=== PATIENT | male | born 1990 | race Caucasian/White ===

== ENCOUNTER 2019-08-02 13:57 | Emergency (ER) | payer BC, MEDICAID, SELFPAY ==
[2019-08-02 14:01] VITALS: BP 156/85; PULSE 114; RESP 16; TEMP 37.1; O2SAT 97
--- NOTE | 2019-08-02 14:11 | ED.GENADUL_ITS ---
Discharge Plan Disposition Patient Disposition: HOME Condition: Stable Discharge Details Chief Complaint: Orthopedic Clinical Impression: Lateral subluxation of right patella Primary Care Provider: Shant Bradford ED Provider: Elvira De La Rosa Home Meds and New Rx's Prescriptions: New tramadol 50 mg tablet 50 mg PO TID PRN (Reason: pain) 3 Days Qty: 7 RF: 0 Continued triamcinolone acetonide 55 mcg/actuation aerosol WILLY DAILY PRNRF: 0 fluticasone propionate [Flonase Allergy Relief] 50 mcg/actuation spray,suspension 1 spray WILLY DAILY PRN (Reason: allergy symptoms) RF: 0 sertraline 50 mg tablet 50 mg PO DAILY Qty: 90 RF: 3 cetirizine [Zyrtec] 10 mg tablet 10 mg PO DAILY RF: 0 omeprazole 20 mg tablet,delayed release (DR/EC) 20 mg PO DAILY RF: 0 calcium carbonate [Tums] 200 mg calcium (500 mg) Tablet,Chewable 1 DAILY RF: 0 Discharge Instructions Instructions: Knee Pain (ED), Patellar Dislocation (ED) Additional Instructions: Dr. dang the orthopedic doctor automobile relocation engineer would like to see you in the office tomorrow morning at 8 AM the office is located at [address] [place] [address]. Please take Tylenol or Ibuprofen with food every 4-6 hours as needed for pain and swelling. Use Calos wrap and crutches as needed, rest ice compression elevation. Take medications as directed. Stand Alone Forms: Work Release Referrals: Jose Gongora MD [ [facility] STAFF PHYSICIAN] - Medical Decision Making 29-year-old male presents from [place] [facility] with right knee swelling after a fall on Wednesday evening. He reports increased pain and unable to sleep has been using crutches at home since fall. He had x-rays completed at [facility] was told there is no fracture but possibly a laterally dislocated patella he does have significant swelling noted to his right knee. Distal pedal pulses are intact extremity is pink warm and dry. He has increased pain and stiffness with full extension. He is requesting to have the fluid drained off his knee will contact Ortho. Patient received Toradol IM at urgent care prior to arrival. He states that that took his pain from a 7 down to a 3 out of 10. 1438: Previous X-rays uploaded into PACS, Previous read shows effusion, no acute fracture, laterally dislocated patella, Ortho automobile relocation engineer paged for consult. 1508: Attempted manual reduction of patella at bedside, unsuccessful. 1515: Spoke with Dr. Gongora who requests XR R knee AP, Lat, and merchant view. Orders in place. Spoke with Dr. Gongora who has viewed X-rays and they show a patellar subluxation with large effusion. Patient to follow up with him at 8am in clinic. Patient sent home with tramadol for pain instructed on rest ice compression elevation, verbalized understanding. HPI General Mode of arrival: ambulatory . Date/Time Provider Initiated Documentation: 08/02/19 14:00 . Limitations to Documentation: no limitations . Information obtained by: patient . HPI Narrative: 29-year-old male presents from [facility] with right knee swelling after a fall on Wednesday evening. He reports increased pain and unable to sleep has been using crutches at home since fall. He had x-rays completed at [facility] was told there is no fracture but possibly a laterally dislocated patella he does have si gnificant swelling noted to his right knee. Distal pedal pulses are intact extremity is pink warm and dry. He has increased pain and stiffness with full extension. He is requesting to have the fluid drained off his knee will contact Ortho. Patient received Toradol IM at urgent care prior to arrival. He states that that took his pain from a 7 down to a 3 out of 10. Related Data Home Medications Medication Instructions Recorded Confirmed cetirizine 10 mg tablet 10 mg PO DAILY 06/21/19 08/02/19 omeprazole 20 mg tablet,delayed 20 mg PO DAILY 06/21/19 08/02/19 release fluticasone propionate 50 1 spray WILLY DAILY PRN 07/04/19 08/02/19 mcg/actuation nasal spray,suspension sertraline 50 mg tablet 50 mg PO DAILY #90 tab 07/04/19 08/02/19 triamcinolone acetonide 55 mcg WILLY DAILY PRN 07/04/19 07/04/19 mcg/actuation nasal spray,aerosol calcium carbonate [Tums] 1 DAILY 08/02/19 tramadol 50 mg PO TID PRN 3 Days #7 tab 08/02/19 Previous Rx's Medication Instructions Recorded sertraline 50 mg tablet 50 mg PO DAILY #90 tab 07/04/19 tramadol 50 mg PO TID PRN 3 Days #7 tab 08/02/19 Allergies Allergy/AdvReac Type Severity Reaction Status Date / Time codeine AdvReac Nausea Verified 08/02/19 14:05 General Stated Complaint: Orthopedic WILLIAM: 4 Review of Systems Narrative: Constitutional: Negative for weight loss, alert and oriented, well groomed, normal body habitus, appears comfortable. HEENT: Denies trauma, headaches, blurry vision, nasal discharge, sore throat, trouble swallowing. Chest: Denies chest pain, palpitations, irregular rhythm, hypertension. Respiratory: Denies Shortness of breath, cough, hemoptysis. GI: Denies abdominal pain, nausea, vomiting, diarrhea, constipation. Musculoskeletal: Complains of right knee pain and swelling. : Denies dysuria, hematuria, flank pain, rectal bleeding. Neuro: Denies dizziness, blurry vision, weakness, syncope, headache or facial numbness. Hematologic: Denies easy bruising, intolerance to heat or cold, hair loss. [facility] Medical History Anxiety (Chronic) ETOH abuse (Chronic) Major depressive disorder, recurrent, moderate (Acute) Family History Mother Substance abuse Hypertension Alcohol abuse Father Substance abuse Hypertension Alcohol abuse Sister Depression Anxiety Maternal Grandfather Pancreatic cancer Maternal Grandfather Pancreatic cancer Other Skin cancer Social History Smoking/Tobacco Use Status: Former Tobacco Use Quit Date: 05/10/15 Tobacco: How many years used: 1 Alcohol Intake: current Alcohol Intake frequency: 0-2 drinks per day Alcohol type: beer Drug use: Daily Substance use type: marijuana Details: Vapes-Marijuana Adopted: No Caregiver/Support person: No Foster care: No Household members: none Housing: apartment Do you need help understanding health information?: Rarely 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 Appears stated age. Normal body habitus. Head: Normocephalic, no trauma. Eyes: Pupils PERRLA, Red reflex noted, EOM's intact. Eyelids symmetrical withour lesions, discharge, or swelling. ENT: Bilateral TM's WNL, External ear normal to inspection, no mastoid TTP, swelling, or erythema, Nasal turbinates WNL, no nasal discharge. Normal dentition, Posterior pharynx WNL, no exudate. Chest: RRR, Normal S1, S2, distal pulses intact. Resp: Lungs clear to auscultation bilaterally, no wheezes, rales, or rhonchi. Musculoskeletal: Normal gait, 5/5 strength to all four extremities. Right anterior knee swollen non-erythemic. No crepitus. Skin: No suspicious rashes or lesions. Capillary refill less than 2 sec. Neurologic: Cranial nerves II-XII intact. Alert and oriented x 3. DTR's intact. Hematologic/Lymphatic: No ecchymosis, no lymphadenopathy. Course Vital Signs Vital signs: Vital Signs Temperature 37.1 C 08/02/19 14:01 Pulse 114 H 08/02/19 14:01 Respiratory Rate 16 08/02/19 14:01 Blood Pressure 156/85 H 08/02/19 14:01 Pulse Oximetry 97 08/02/19 14:01 Temperature 37.1 C 08/02/19 14:01 Temperature Source Skin 08/02/19 14:01 Pulse 114 H 08/02/19 14:01 Respiratory Rate 16 08/02/19 14:01 Respiratory Effort Non-Labored 08/02/19 14:01 Blood Pressure 156/85 H 08/02/19 14:01 Blood Pressure Position Sitting 08/02/19 14:01 Pulse Oximetry 97 08/02/19 14:01 Oxygen Delivery Method Room Air 08/02/19 14:01 Oxygen Flow Rate 0 08/02/19 14:01 Pain Level 4 08/02/19 14:08
--- NOTE | 2019-08-02 15:00 | DI.RAD_ITS ---
EXAM: XR KNEE RT 3V AP,LAT,KALI CLINICAL HISTORY: patellar dislocation. TECHNIQUE: 2D digital imaging was performed. COMPARISON: No previous. FINDINGS: BONES: No acute fracture is present. No bony destructive lesion is seen. Findings of a prior ACL repa ir are noted. JOINTS: Degenerative changes are seen in the knee characterized by periarticular spurring and subchon dral sclerosis. There is mild narrowing of the medial femoral tibial joint space. There is a large joint effusion. There is lateral subluxation of the patella. SOFT TISSUE: There is soft tissue swelling. IMPRESSION: 1. Lateral subluxation of the patella. 2. Degenerative changes of the right knee. 3. Large joint effusion. DATA REPOSITORY: RADIATION DOSE DELIVERED:
[2019-08-02] MEDS: oxyCODONE 5 mg/Acetaminophen 325 mg TAB 1 TAB PO (15:13)
== END 2019-08-02 16:40 | disposition home or self-care (01) ==
LOC: ER 16:38
PROVIDERS: Emergency Provider Registered Nurse Emergency; PCP Family Medicine
DX: S83.011A Lateral subluxation of right patella, initial encounter (principal); M25.461 Effusion, right knee; W19.XXXA Unspecified fall, initial encounter
CPT/HCPCS: 73562; 99283

== ENCOUNTER 2019-09-11 01:58 | Outpatient (CLI) | payer BC, SELFPAY ==
--- NOTE | 2019-09-11 06:30 | DI.MRI_ITS ---
EXAM: MR LOWER JOINT RT WO CLINICAL HISTORY: recurrent ACL rupture, internal derangement,RT KNEE HEMIARTHROSIS, PAIN. TECHNIQUE: Multiplanar multisequence MRI was performed. COMPARISON: Knee RT from 08/02/2019 XR KNEE RT 3V AP,LAT,KALI from 08/02/2019 FINDINGS: There is a moderate to large joint effusion. The patient is status post ACL repair. The ACL graft i s not seen, consistent with complete tear. Posterior cruciate ligament, medial and lateral collatera l ligaments and extensor mechanism appear intact. There are degenerative changes of both medial femoral tibial joints with cartilage thinning extending down to and involving underlying bone. There is spurring from the femoral condyles and tibial plate aus. Both menisci show degenerative changes, medial greater than lateral. The posterior horn of the later al meniscus is not seen in its normal location. There is an abnormal triangular density seen adjacen t to the posterior cruciate ligament which is suspicious for a displaced meniscal fragment versus buc ket-handle type tear. There is cartilage thinning and small defect in the cartilage of the medial patellar facet. IMPRESSION: Complete tear of the ACL graft. Severe degenerative changes of the femoral tibial joints and medial meniscus. Degenerative changes of the lateral meniscus with superimposed tear of the posterior horn with medial ly displaced fragment. DATA REPOSITORY:
== END 2019-09-11 02:18 ==
PROVIDERS: PCP Family Medicine; Visit Provider Student in an Organized Health Care Education/Training Program
DX: M25.561 Pain in right knee (principal); M23.8X1 Other internal derangements of right knee; M25.461 Effusion, right knee; M17.11 Unilateral primary osteoarthritis, right knee; S83.281A Other tear of lateral meniscus, current injury, right knee, initial encounter; T84.490A Other mechanical complication of muscle and tendon graft, initial encounter
CPT/HCPCS: 73721

== ENCOUNTER 2019-10-09 10:25 | Outpatient (CLI) | payer BC, SELFPAY ==
[2019-10-10 14:57] LABS: COVID-19 RT-PCR Result NEGATIVE (Negative)
== END 2019-10-09 10:45 ==
PROVIDERS: PCP Family Medicine; Visit Provider Family Medicine
DX: R43.2 Parageusia (principal); Z11.59 Encounter for screening for other viral diseases
CPT/HCPCS: U0003

== ENCOUNTER 2020-06-17 09:23 | Emergency (ER) | payer BC, SELFPAY ==
[2020-06-17 09:29] VITALS: BP 151/82; PULSE 107; RESP 18; TEMP 36.5; O2SAT 98
--- NOTE | 2020-06-17 10:46 | ED.GENADUL_ITS ---
Discharge Plan Disposition Patient Disposition: HOME Condition: Stable Discharge Details Clinical Impression: Bruising of penis Primary Care Provider: Shant Bradford ED Provider: Zaira Keller Home Meds and New Rx's Prescriptions: Continued triamcinolone acetonide 55 mcg/actuation aerosol WILLY DAILY PRNRF: 0 fluticasone propionate [Flonase Allergy Relief] 50 mcg/actuation spray,suspension 1 spray WILLY DAILY PRN (Reason: allergy symptoms) RF: 0 sertraline 50 mg tablet 50 mg PO DAILY Qty: 90 RF: 3 ibuprofen 800 mg tablet 800 mg PO BID PRN (Reason: Knee pain) Qty: 60 RF: 0 cetirizine [Zyrtec] 10 mg tablet 10 mg PO DAILY RF: 0 (DME) Right knee ACL brace See Rx Instructions .ROUTE .MEDSUPPLY Qty: 1 RF: 0 calcium carbonate [Tums] 200 mg calcium (500 mg) Tablet,Chewable 1 DAILY RF: 0 omeprazole 40 mg capsule,delayed release(DR/EC) 40 mg PO DAILY PRNRF: 0 Discharge Instructions Additional Instructions: Please return immediately to the emergency department if you develop any new or worsening symptoms including but not limited to penis pain, testicular pain, difficulty or pain with urinating, blood in your urine, difficulty or inability achieving erection, if your condition does not improve as expected, or if you become otherwise concerned. It is extremely important that you call soon as possible to make an appointment to be seen in follow-up for this visit by your primary care doctor. Please call Dr. Sherman of urology on 06/20/2020 for follow- up as was discussed. Referrals: Aj Sherman MD [ [facility] STAFF PHYSICIAN] - Shant Bradford DO [Primary Care Provider] - Discharge Data Discharge Date/Time-TO BE ENTERED AT DEPARTURE: 06/17/20 12:00 Medical Decision Making David Morrow is a 30-year-old man who presented to the emergency department with painless bruising of his penis that occurred during intercourse yesterday with unclear inciting event. On exam patient is well and nontoxic-appearing, appears comfortable and in no distress. No abdominal tenderness palpation. There is ecchymosis of the penile shaft, suprapubic area adjacent to the penis, and superior scrotum adjacent to the penis without testicular tenderness or scrotal edema. History is not entirely consistent with penile fracture, however concern for fracture given exam. Exam/history is not consistent with testicular torsion, bladder rupture, acute emergent intra-abdominal process, acute emergent infectious process. Plan for urology consult, UA. Urology at bedside with patient. Urology requesting UA, will review when resulted. UA negative for blood. Dr. Sherman at bedside with Pt. He requests outpt f/u with him, d/c to home without further emergent intervention. Lengthy discussion with Patient regarding return to emergency department precautions, home care, and importance of outpatient follow-up. Patient discharged to home with clear plan for outpatient follow-up. Disposition decision was made weighing the risks and benefits of hospitalization versus outpatient treatment, the risk for further decompensation, and the patient's wishes. Medical Records Medical records reviewed: Yes I reviewed the patient's medical records. Lab Data Lab results reviewed: Yes I reviewed the patient's lab results. Labs: Laboratory Tests Range/Units 06/17/20 11:30 Urine Color (Yellow) Yellow Urine Clarity (Clear) Clear Urine pH (5-8) 6.0 Ur Specific [place] (1.005-1.025) 1.025 Urine Protein (Negative) mg/dL Negative Urine Ketones (Negative) mg/dL Negative Urine Blood (Negative) Negative Urine Nitrite (Negative) Negative Urine Bilirubin (Negative) Negative Urine Urobilinogen (Up TO 0.2) EU/dL 0.2 Ur Leukocyte Esterase (Negative) Negative Urine Glucose (Negative) mg/dL Negative Mood okay is more pronounced HPI General Mode of arrival: ambulatory . Date/Time Provider Initiated Documentation: 06/17/20 09:52 . Limitations to Documentation: no limitations . Information obtained by: patient, RN notes reviewed and old records reviewed . HPI Narrative: David Morrow is a 30-year-old man with history of depression, heavy alcohol use presenting to the emergency department with penile bruising. Patient reports that he was well in his previous state of health yesterday. He was having sexual intercourse at approximately 5:30 PM yesterday when his female partner asked him if she had hurt him. Patient said that he has felt no trauma or other abnormality, did not hear or feel a popping sound, but subsequently examined his penis and found it to be bruised. Patient reported that he tried having intercourse at that time due to concern of a bruising, however later last night did have subsequent erections. Patient reports that he has been urinating normally with out blood in urine or pain. Patient reports that he continues to have no pain today, no difficulty with urination, no blood in his urine. Patient reports that he presented to the emergency department given extensiveness of bruising of his penis and also of his scrotum. He denies testicular pain, penile pain, any other pain, fever, vomiting, diarrhea, cough, shortness of breath, numbness, weakness. Patient reports no known abnormalities to his genitalia prior to intercourse yesterday. Related Data Home Medications Medication Instructions Recorded Confirmed cetirizine 10 mg tablet 10 mg PO DAILY 06/21/19 06/17/20 fluticasone propionate 50 1 spray WILLY DAILY PRN 07/04/19 06/17/20 mcg/actuation nasal spray,suspension sertraline 50 mg tablet 50 mg PO DAILY #90 tab 07/04/19 06/17/20 triamcinolone acetonide 55 mcg WILLY DAILY PRN 07/04/19 09/26/19 mcg/actuation nasal spray,aerosol calcium carbonate [Tums] 1 DAILY 08/02/19 09/26/19 ibuprofen 800 mg tablet 800 mg PO BID PRN #60 tab 08/03/19 06/17/20 Right knee ACL brace #1 each 10/13/19 omeprazole 40 mg PO DAILY PRN 06/17/20 06/17/20 Previous Rx's Medication Instructions Recorded sertraline 50 mg tablet 50 mg PO DAILY #90 tab 07/04/19 ibuprofen 800 mg tablet 800 mg PO BID PRN #60 tab 08/03/19 Right knee ACL brace #1 each 10/13/19 Allergies Allergy/AdvReac Type Severity Reaction Status Date / Time hazelnut Allergy Itching Unverified 06/17/20 09:36 shellfish derived Allergy Anaphylaxis Unverified 06/17/20 09:36 codeine AdvReac Nausea Verified 06/17/20 09:36 General Stated Complaint: Male Reproductive Problem WILLIAM: 3 Review of Systems Narrative: Constitutional: denies fevers Eyes: denies eye pain ENT: denies ear pain, dental pain, sore throat Cardiovascular: denies chest pain Respiratory: denies SOB, cough GI: denies abdominal pain, vomiting, diarrhea : denies flank pain, penile pain, dysuria, hematuria, testicular pain, scrotal swelling, reports penile bruising MSK: denies back pain, neck pain, arthralgias, myalgias Skin: denies rash Neuro: denies headaches, numbness, weakness [facility] Medical History Anxiety ETOH abuse Major depressive disorder, recurrent, moderate Family History Mother Substance abuse Hypertension Alcohol abuse Father Substance abuse Hypertension Alcohol abuse Sister Depression Anxiety Maternal Grandfather Pancreatic cancer Maternal Grandfather Pancreatic cancer Other Skin cancer Social History Smoking/Tobacco Use Status: Former Tobacco Use Quit Date: 05/10/15 Tobacco: How many years used: 1 Smoking risk assessment performed?: Yes Alcohol Intake: current Alcohol Intake frequency: 0-2 drinks per day Alcohol type: beer Drug use: Daily Substance use type: marijuana Details: Vapes-Marijuana Adopted: No Caregiver/Support person: No Foster care: No Household members: none Housing: apartment Do you need help understanding health information?: Rarely 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, [employer] Pets and animals: Yes Pets and animals: dog(s) Sexually active: Yes Do you think of yourself as: straight/heterosexual Current gender identity: male What type of physical activity do you participate in: none Exam Narrative Exam Narrative: Constitutional: well and [id number], pleasant, conversing normally HENT: head atraumatic/normocephalic/normal inspection, mucous membranes moist Eyes: conjunctiva normal, sclera normal, pupils 3mm b/l Neck: no stridor, normal ROM, trachea midline Resp: normal work of breathing, speaking in full sentences Cardio: normal rate, normal rhythm GI: abdomen soft, non-tender, non-distended, faint ecchymosis suprapubic area just superior to the penis : Circumferential ecchymosis of the entire penile shaft extending into the superior scrotum, no blood at the meatus, no appreciable edema of the penis, no testicular tenderness or edema Skin: warm, dry, normal color, no rash Neuro: alert, not altered, grossly non-focal, normal tone Ext: no edema Psych: normal mood, normal affect, normal behavior Course Vital Signs Vital signs: Vital Signs Temperature 36.5 C 06/17/20 09:29 Pulse 107 H 06/17/20 09:29 Respiratory Rate 18 06/17/20 09:29 Blood Pressure 151/82 H 06/17/20 09:29 Pulse Oximetry 98 06/17/20 09:29 Temperature 36.5 C 06/17/20 09:29 Temperature Source Skin 06/17/20 09:29 Pulse 107 H 06/17/20 09:29 Respiratory Rate 18 06/17/20 09:29 Respiratory Effort Non-Labored 06/17/20 09:38 Blood Pressure 151/82 H 06/17/20 09:29 Blood Pressure Position Sitting 06/17/20 09:29 Pulse Oximetry 98 06/17/20 09:29 Oxygen Delivery Method Room Air 06/17/20 09:29 Oxygen Flow Rate 0 06/17/20 09:29 Pain Level 0 06/17/20 09:29
[2020-06-17 11:46] LABS: Bilirubin Negative (Negative); Blood Negative (Negative); Clarity Clear (Clear); Glucose Negative (Negative); Ketones Negative (Negative); Leukocyte Esterase Negative (Negative); Nitrite Negative (Negative); Specific Gravity 1.025 (1.005-1.025); Urobilinogen 0.2 EU/dL (Up TO 0.2)
[2020-06-17 12:01] VITALS: BP 145/89; PULSE 89; RESP 16; O2SAT 96
--- NOTE | 2020-06-17 12:29 | UCONE_ITS ---
Date of service: 06/17/20 Time of Service: 12:29 Assessment and Plan Assessment and plan (1) Bruising of penis: Status: Acute Assessment and plan: With a normal urinalysis, it would be highly unlikely that he has any type of injury to the corpus spongiosum. I do not think a retrograde urethrogram is indicated. The differential diagnosis would be either a ruptured subcutaneous blood vessel or a ruptured tunica albuginea. Clinically, I favor the ruptured blood vessel as the patient did not hear a popping noise and has been able to obtain normal erections after the onset of the edema and ecchymosis. We discussed 3 different approaches. One would be to do a surgical exploration and repair any injury to the tunica albuginea if it is identified. The second approach would be an ultrasound study looking for injuries to the corpus cavernosum. We do not have access to this specialized ultrasound probe, so we would need to refer him to a larger tertiary care center for such a study. The third approach would be to simply observe him with the expectation that if it is a subcutaneous vein rupture, the ecchymosis should reabsorb over time. He is most agreeable with the observation approach. I asked him to let me know if he is not able to obtain a normal erection as that change in his condition may indicate a tunica rupture. We will ask the patient to give us a call in about a week with a progress report. We can then decide if we need to bring him into the office for recheck or not. History of Present Illness History of Present Illness Chief Complaint: Penile ecchymosis Narrative: This is a 30-year-old gentleman who presented to the emergency room today with penile ecchymosis. He tells me that he and his partner were intermittent yesterday. The patient did not recall any painful injury or hearing any popping noise. He did however notice penile edema and bruising. Over the next 12 to 18 hours, the edema and ecchymosis has extended toward the suprapubic and scrotal area. He still has no pain. He has been able to obtain erections since the onset of the ecchymosis. He is not on any type of anticoagulant. He has had no previous penile surgery. He has had no difficulty with voiding. His urinalysis done here in the emergency room is normal. Review of Systems Constitutional Constitutional: Denies chills and Denies fever(s) Cardiovascular Cardiovascular: Denies chest pain Respiratory Respiratory: Denies cough Gastrointestinal Gastrointestinal: Denies nausea and Denies vomiting Neurologic Neurologic: Denies convulsions and Denies paresthesias [facility] Medical History Anxiety ETOH abuse Major depressive disorder, recurrent, moderate Family History Mother Substance abuse Hypertension Alcohol abuse Father Substance abuse Hypertension Alcohol abuse Sister Depression Anxiety Maternal Grandfather Pancreatic cancer Maternal Grandfather Pancreatic cancer Other Skin cancer Social History Smoking/Tobacco Use Status: Former Tobacco Use Quit Date: 05/10/15 Tobacco: How many years used: 1 Smoking risk assessment performed?: Yes Alcohol Intake: current Alcohol Intake frequency: 0-2 drinks per day Alcohol type: beer Drug use: Daily Substance use type: marijuana Details: Vapes-Marijuana Adopted: No Caregiver/Support person: No Foster care: No Household members: none Housing: apartment Do you need help understanding health information?: Rarely current occupation: [employer], [employer] Pets and animals: Yes Pets and animals: dog(s) Sexually active: Yes Do you think of yourself as: straight/heterosexual Current gender identity: male What type of physical activity do you participate in: none Exam Const Other: He is in no current distress. He is cooperative. His vital signs are documented elsewhere He does not appear septic or toxic The glans is pink with no ecchymosis or edema. The urethral meatus appears normal. The penile shaft is ecchymotic but not tender on palpation. There is some tenderness in the suprapubic area just at the shaft of the penis. There is some mild ecchymosis in the scrotum with normal testes. He is awake and alert Results Last Vital Signs Temp 36.5 C 06/17/20 09:29 Pulse 89 06/17/20 12:01 Resp 16 06/17/20 12:01 BP 145/89 H 06/17/20 12:01 Pulse Ox 96 06/17/20 12:01 Labs Labs: Laboratory Results - last 24 hr 06/17/20 11:30 Urine Color Yellow Urine Clarity Clear Urine pH 6.0 Ur Specific [place] 1.025 Urine Protein Negative Urine Ketones Negative Urine Blood Negative Urine Nitrite Negative Urine Bilirubin Negative Urine Urobilinogen 0.2 Ur Leukocyte Esterase Negative Urine Glucose Negative
--- NOTE | 2020-06-17 13:59 | NUR.NOTE ---
REFERRAL FAXED TO [facility], SEEN IN ED 06/17/[address] VOSS AND LUISITO COLLAZO.Nursing Note:
== END 2020-06-17 12:00 | disposition home or self-care (01) ==
PROVIDERS: Emergency Provider Student in an Organized Health Care Education/Training Program; PCP Family Medicine
DX: S30.21XA Contusion of penis, initial encounter (principal); X58.XXXA Exposure to other specified factors, initial encounter
CPT/HCPCS: 99252; 99282; 99283; 81003

== ENCOUNTER 2020-10-17 01:25 | Outpatient (CLI) | payer BC, SELFPAY ==
--- NOTE | 2020-10-17 | DI.MRI_ITS ---
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 TECHNIQUE: Multiplanar multisequence MRI was performed. COMPARISON: None available FINDINGS: There is evidence of previous ACL repair. The ACL graft is not visible, consistent with complete tea r. There is abnormal anterior and lateral subluxation of the tibia with respect to the distal femur. The posterior cruciate ligament, medial and lateral collateral ligaments appear intact. The extens or mechanism appears intact. There is a moderate-sized joint effusion. There is spurring from the f emoral condyles and tibial plateaus. There is severe thinning of the cartilage overlying the medial tibial plateau, extending down to bone. There is marrow edema and some subchondral cyst formation. There is also significant irregularity over the medial femoral condyle, with significant thinning. N o marrow edema is seen. There is also thinning of the cartilage of the lateral femoral condyle with some adjacent edema. The patellar cartilage is normal in thickness. The lateral meniscus shows some degenerative change but no focal signal abnormality. The medial meniscus is quite diminutive, consi stent with postsurgical changes. IMPRESSION: Prior ACL repair. The graft is not visualized, consistent with complete tear. Presumed postsurgical changes of the medial meniscus. Degenerative changes with significant cartilage thinning involving underlying bone, greatest of the medial femoral tibial joint. DATA REPOSITORY:
== END 2020-10-17 01:45 ==
PROVIDERS: PCP Family Medicine; Visit Provider Orthopaedic Surgery
DX: M25.362 Other instability, left knee (principal); M23.92 Unspecified internal derangement of left knee; S83.512A Sprain of anterior cruciate ligament of left knee, initial encounter; M25.462 Effusion, left knee
CPT/HCPCS: 73721

== ENCOUNTER 2020-11-05 13:31 | Outpatient (REF) | payer BC, SELFPAY ==
[2020-11-07 15:51] LABS: Chlamydia Result Negative (Negative); GC Result Negative (Negative)
== END 2020-11-05 13:32 | disposition home or self-care (01) ==
LOC: LBN 13:31
PROVIDERS: PCP Family Medicine; Visit Provider Family Medicine
DX: Z11.3 Encounter for screening for infections with a predominantly sexual mode of transmission (principal)
CPT/HCPCS: 87491; 87591

== ENCOUNTER 2023-05-26 02:37 | Outpatient (CLI) | payer BC, SELFPAY ==
[2023-05-26 09:14] LABS: ALT 29 U/L (16-63); AST 10 U/L (15-37); Albumin 4.1 g/dL (3.4-5.0); Alkaline Phosphatase 66 U/L (46-116); Anion Gap 5.8 mmol/L (3-11); BUN 19 mg/dL (7-18); Bilirubin, Total 0.4 mg/dL (0.2-1.0); CO2 31.2 mmol/L (21.0-32.0); CREATININE 0.9 mg/dL (0.70-1.30); Calcium 9.3 mg/dL (8.5-10.1); Calculated LDL 147 mg/dL (<100); Chloride 101 mmol/L (98-107); Cholesterol 242 mg/dL (<200); Estimated GFR 115.65 (mL/min/1.73m2); Glucose 130 mg/dL (74-106); HDL Cholesterol 41 mg/dL (40-60); Potassium 4.1 mmol/L (3.5-5.1); Sodium 138 mmol/L (136-145); Total Protein 8.2 g/dL (6.4-8.2); Triglyceride 273 mg/dL (<150)
[2023-05-26 19:31] LABS: Hepatitis C Ab w Rflx HCV PCR Negative (Negative)
[2023-05-26 21:05] LABS: HIV-1/2 Ag & Ab Screen Negative (Negative)
== END 2023-05-26 02:38 | disposition home or self-care (01) ==
PROVIDERS: PCP Family Medicine; Referring Provider Family Medicine; Visit Provider Family Medicine
DX: F10.10 Alcohol abuse, uncomplicated (principal); Z13.6 Encounter for screening for cardiovascular disorders; Z11.3 Encounter for screening for infections with a predominantly sexual mode of transmission; Z00.00 Encounter for general adult medical examination without abnormal findings
CPT/HCPCS: 36415; 80053; 80061; 86803; 87389

== ENCOUNTER 2023-11-23 18:35 | Outpatient (REF) | payer BC, SELFPAY ==
--- OUTSIDE RECORDS SUMMARY | 2023-11-23 18:39 | XMS_ITS | Encounter Summary ---
Author Organization [facility] Address [phone] [facility] [place] [address] Care Team Providers Care Perioperative Tech Name Role Phone Shant Bradford DO Primary Care Provider + Encounter Details Date Type Department Care Team ([facility] Contact Info) Description 05/08/2022 Telephone [facility] [address] [place] [address] Zackary Garcia MD [address] [place] [address] [email or web address] Social History Tobacco Use Types Packs/Day Years Used Date Smoking Tobacco: Never Smokeless Tobacco: Never Alcohol Use Standard Drinks/Week Comments Not Currently 1 (1 standard drink = 0.6 oz pur e alcohol) 4-6 a month Sex and Gender Information Value Date Recorded Sex Assigned at Male 07/16/2020 11:01 AM EST Gender Identity Male 07/16/2020 11:01 AM EST Sexual Orientation Straight 07/16/2020 11 :01 AM EST documented as of this encounter Progress Notes * Zackary Garcia MD - 05/08/2022 8:29 PM EST Images from the original note were not included. David Odalys // [id number] Called by patient s/p TKA on 05/05/[address] Ragsdale. Patient reports that when he worked with PT today and they took down his dressing, they noticed that the knee was swollen but not erythematous or warm. There was a small superficial blister that was to the right of the incision. The patient is notably not having any pain and is able to range the knee with minimal pain. No drainage/bleeding. The patient wants to know if he needs to go the ED tonight, and he was advised that it is not necessary to go to ED tonight for this. Advised that as I cannot see them in person I can't evaluate the fully or provide formal recommendations. Counseled to call back if patient develops fever/chills, nausea/emesis, malaise, erythema, drainage from the surgical wound, numbness/paresthesias or inability to ambulate. Patient expresses understanding of and agreement with plan. Zackary Garcia MD Orthopaedic Resident, PGY1 [facility] Orthopaedic Residency Program P: [phone] For further follow up regarding inpatients, please page [phone] at [facility], [phone] at [facility], or the resident/fellow rounding on the patient daily. documented in this encounter Plan of Treatment Not on file documented as of this encounter Visit Diagnoses Not on filedocumented in this encounter Care Teams Perioperative Tech Relationship Specialty Start Date End Date Shant Bradford DO [address] [place] [address] PCP - General 07/16/20 documented as of this encounter Additional Source Comments The information contained in this document represents components of the legal health record. It is not the complete legal health record.[facility]
--- OUTSIDE RECORDS SUMMARY | 2023-11-23 18:39 | XMS_ITS | Encounter Summary ---
Author Organization [facility] Address [phone] [place] [address] Care Team Providers Care General Lot Attendant Name Role Phone Shant Bradford DO Primary Care Provider + Reason for Visit * Consultation (Routine) - Authorized Specialty Diagnoses / Procedures Referred By Contact Referred To Contact Orthopedic Surgery / Orthopedics Diagnoses Left knee f/u with x-ray Procedures ESTABLISHED PATIENT Shant Bradford DO [address] [place] [address] [facility] Orthoped[facility] [address] [place] [address] Referral ID Status Reason Start Date Expiration Date V isits Requested Visits Authorized [id number] Authorized 03/31/2023 03/31/2024 99 99 Encounter Details Date Type Department Care Team (Latest Contact Info) Description 03/31/2023 3:00 PM EST Office Visit [facility] [place] [address] [place] [address] Adriana Ragsdale MD [address] [place] [id number] [email or web address] Status post total left knee replacement (Primary Dx); Primary osteoarthritis of right knee; Chronic pain of right knee Social History Tobacco Use Types Packs/Day Years Used Date Smoking Tobacco: Never Smokeless Tobacco: Never Alcohol Use Standard Drinks/Week Comments Not Currently 1 (1 standard drink = 0.6 oz pur e alcohol) 4-6 a month Education Answer Date Recorded Are you interested in more education? Not on roger e 09/04/2022 Are you concerned about learning? Not on file 09/04/2022 No 09/04/2022 No 09/04/2022 Digital Access Answer Date Recorded No 10/06/2022 No 10/06/2022 Reliable internet access at home? Not on file 10/06/2022 Device with a working camera? Not on file Sex and Gender Information Value Date Recorded Sex Assigned at Male 07/16/2020 11:01 AM EST Gender Identity Male 07/16/2020 11:01 AM EST Sexual Orientation Straight 07/16/2020 11 :01 AM EST documented as of this encounter Last Filed Vital Signs Vital Sign Reading Time Taken Comments Blood Pressure - - Pulse - - Temperature - - Respiratory Rate - - Oxygen Saturation - - Inhaled Oxygen Concentration - - Weight 90.7 kg (200 lb) 03/31/2023 2:56 PM EST Height 175 cm (5' 8.9) 03/31/2023 2:56 PM EST Body Mass Index 29.62 03/31/2023 2:56 PM EST documented in this encounter Progress Notes * Adriana Ragsdale MD - 03/31/2023 3:00 PM EST Images from the original note were not included. Adriana Ragsdale MD, ASHLEY Director of Research, Arthroplasty Services [facility] David Upsala ?DATE OF : @ DATE OF SERVICE: 03/31/23 Diagnosis: 1. Status post total left knee replacement 2. Primary osteoarthritis of right knee 3. Chronic pain of right knee Surgery: L TKR kwame with lateral release 05/05/22 HPI: This patient presents today for 1 year follow-up appointment. Patient is doing well with the left knee replacement - he has crepitus that is painless. He notices that he can't squat as deeply. He continues to do exercises. His right knee has been bothering him more. The patient has pain in hisright knee when doing short walks and going up hills - he has lateral right knee pain. He has no fever or chills. PHYSICAL EXAMINATION: Vitals: 03/31/23 1456 Weight: 90.7 kg (200 lb) Height: 175 cm (5' 8.9) Body mass index is 29.62 kg/m??. Patient is a male; alert and oriented, in no acute distress. Well developed, appropriate affect. left knee reveals: Nicely healed wound, no effusion, no drainage. well-healed otherwise ROM: 0-130 Stable to varus and valgus stress, and anterior and posterior stress. Moderate crepitus. Calf is supple and nontender. Neurovascularly intact. Grossly in tact to light touch. Examination of the right knee demonstrates: Skin is intact, warm and dry. Effusion: small Joint line tenderness: medial Crepitation: significant ROM: 0-130 Alignment: varus Ligaments: stable Quad strength: 5/5 No obvious peripheral edema noted. Distal neurovascular exam demonstrates normal perfusion, intact sensation to light touch and full strength. X-rays of the patient's left knee demonstrate appropriate component placement with some patellofemoral arthritis with a centrally tracking patella. The right knee previous demonstrated osteoarthritiswith patella subluxation. ?VISIT DIAG: Status post total left knee replacement [Z96.652] ? PLAN: The patient is doing well after a left total knee replacement and his range of motion is doing well. He may benefit from VMO exercises. He will continue to practice kneeling. He will return forhis right knee. He will follow- up at his 4 year follow-up with x-rays. Adriana Ragsdale MD/ASHLEY Orthopaedic attending This note was dictated using [employer] software. While it was briefly proofread prior to completion, some grammatical, spelling, and word choice errors due to dictation may still occur. Current view: Showing only relevant answers Proms Msk All Joints Selector New Question 03/31/2023 10:03 AM EST - Filed by Patient What is the reason for your visit? Please also select any joints/areas for which you are scheduled or have recently had surgery. Knee Proms Msk Knee Root New Question 03/31/2023 10:03 AM EST - Filed by Patient The following questions provide your doctor and care team with valuable information and allow them to take better care of you. Please note your answers may not be reviewed immediately. If you have anurgent medical question, please call your doctor's office. For emergencies, call 911. Your responses are confidential. By starting the questionnaire, you understand that your responses will become part of your medical record and may be visible in your [facility] portal. Get started Proms Promis Physical Function 10a Question 03/31/2023 10:03 AM EST - Filed by Patient Does your health now limit you in doing vigorous activities, such as running, lifting heavy objects, participating in strenuous sports? Somewhat Does your health now limit you in walking more than a mile? (1.6 km) Very little Does your health now limit you in climbing one flight of stairs? Not at all Does your health now limit you in lifting or carrying groceries? Not at all Does your health now limit you in bending, kneeling, or stooping? Somewhat Are you able to do chores such as vacuuming or yard work? Without any difficulty Are you able to dress yourself, including tying shoelaces and buttoning your clothes? Without any difficulty Are you able to shampoo your hair? Without any difficulty Are you able to wash and dry your body? Without any difficulty Are you able to sit on and get up from the toilet? With a little difficulty PROMs PROMIS Physical Function SF10a (range: 14 - 62) 47 (Within Normal Limits) Proms Promis-10 Question 03/31/2023 10:03 AM EST - Filed by Patient In general, would you say your health is: Good In general, would you say your quality of life is: Very good In general, how would you rate your physical health? Good In general, how would you rate your mental health, including your mood and your ability to think? Good In general, how would you rate your satisfaction with your social activities and relationships? Good In general, please rate how well you carry out your usual social activities and roles. (This includes activities at home, at work and in your community, and responsibilities as a parent, child, spouse, employee, friend, etc.) Good To what extent are you able to carry out your everyday physical activities such as walking, climbing stairs, carrying groceries, or moving a chair? Mostly In the past 7 days: How often have you been bothered by emotional problems such as feeling anxious, depressed or irritable? Rarely How would you rate your fatigue on average? Mild How would you rate your pain on average? (0=No pain, 10=Worst imaginable pain) 2 PROMs PROMIS Global Health Short Form Score (Physical) (range: 16 - 68) 47.7 (Good) PROMs PROMIS Global Health Short Form Score (Mental) (range: 21 - 68) 48.3 (Very Good) Proms Koos-Ps New Question 03/31/2023 10:03 AM EST - Filed by Patient Please indicate the degree of difficulty you have experienced in the LAST WEEK due to your knee problem. Rising from bed None Putting on socks/stockings None Rising from sitting Mild Bending to floor Mild Twisting/pivoting on your injured knee None Kneeling Mild Squatting Moderate PROMs Knee Outcome Score (KOOS-PS) (range: 0 - 100) 78 (Mild) Proms Msk Custom Joint Function & Pain Question 03/31/2023 10:03 AM EST - Filed by Patient In the past 7 days, what most affected your physical function? Right knee In the past 7 days, what most affected your pain? Right knee Proms Rapt Selector Question 03/31/2023 10:03 AM EST - Filed by Patient Are you a new patient or being seen for a new problem? No Proms Forgotten Joint Score (Fjs-12) Question 03/31/2023 10:03 AM EST - Filed by Patient ARE YOU AWARE OF YOUR JOINT... ???in bed at night? Almost never ???when you are sitting on a chair for more than one hour? Almost never ???when you are walking for more than 15 minutes? Seldom ???when you are taking a shower or bath? Almost never ???when you are traveling in a car? Seldom ???when you are climbing stairs? Seldom ???when you are walking on uneven ground? Seldom ???when you are standing up from a low-sitting position? Sometimes ???when you are standing for long periods of time? Seldom ???when you are doing housework or gardening? Almost never ???when you are taking a walk or hiking? Sometimes ???when you are doing your favorite sport? Sometimes PROMs Forgotten Joint Score (range: 0 - 100) 52.08 (Higher is better) documented in this encounter Plan of Treatment Not on file documented as of this encounter Visit Diagnoses Diagnosis Status post total left knee replacement- Primary Primary osteoarthritis of right knee Chronic pain of right knee documented in this encounter Care Teams General Lot Attendant Relationship Specialty Start Date End Date Shant Bradford DO [address] [place] [address] PCP - General 07/16/20 documented as of this encounter Additional Source Comments The information contained in this document represents components of the legal health record. It is not the complete legal health record.[facility]
--- OUTSIDE RECORDS SUMMARY | 2023-11-23 18:39 | XMS_ITS | Encounter Summary ---
Author Organization [facility] Address [address] [place] [address] Care Team Providers Care Advanced Practice Nurse Name Role Phone Unavailable Primary Care Provider Unavailabl e Encounter Details Date Type Department Care Team (Late st Contact Info) Description 11/06/2020 Lab Requisition [facility] Pathology & Laboratory Medicine - [facility] [address] [place] [address] Outr Resulting Lab, Provider Social History Tobacco Use Types Packs/Day Years Used Date Smoking Tobacco: Never Assessed Interpersonal Safety Answer Date Record ed Physically Hurt Never 04/02/2020 Verbally Threaten Not on file 04/02/2020 Sex and Gender Information Value Date Recorded Sex Assigned at Not on file Gender Identity Not on file Sexual Orientation Not on file documented as of this encounter Plan of Treatment Not on file documented as of this encounter Procedures Procedure Name Priority Date/Time Associated Diagnosis Comments CHLAMYDIA/N. GONORRHOEAE AMPLIFIED NUCLEIC ACID Routine 11/05/2020 13:15 EDT documented in this encounter Results * CHLAMYDIA/N. GONORRHOEAE AMPLIFIED RNA (11/05/2020 13:15 EDT) Neisseria gonorrhoeae Result Negative Negative 11/07/2020 15:44 EDT [facility] Chlamydia trachomatis Result Negative Negative 11/07/2020 15:44 EDT [facility] Urine URINE / Unknown 11/05/2020 1 3:15 EDT 11/07/2020 7:20 EDT Provider Outr Resulting Lab MICROBIOLOGY - GENERAL ORDERABLES [facility] [address] [place] [address] documented in this encounter Visit Diagnoses Not on filedocumented in this encounter
--- OUTSIDE RECORDS SUMMARY | 2023-11-23 18:39 | XMS_ITS | Encounter Summary ---
Author Organization [facility] Address [address] [place] [address] Care Team Providers Care Child Care Centre Manager Name Role Phone Unavailable Primary Care Provider Unavailabl e Encounter Details Date Type Department Care Team (Late st Contact Info) Description 05/26/2023 Lab Requisition [facility] Pathology & Laboratory Medicine - [facility] [address] [place] [address] Outr Resulting Lab, Provider Social History Tobacco [...] Procedure Name Priority Date/Time Associated Diagnosis Comments HIV 1/2 ANTIGEN AND ANTIBODY, 4TH GENERATION Routine 05/26/2023 8:18 EST documented in this encounter Results * HIV 1/2 ANTIGEN AND ANTIBODY, 4TH GENERATION (05/26/2023 8:18 EST) HIV 1 and 2 Antibody/p24 Antigen, 4th Generation Negative Negative 05/26/2023 21:00 EST [facility] Comment:If acute HIV-1 infec tion is suspected in a high risk patient, submit plasma specimen for HIV-1 RNA quantitation test. Blood VENOUS BLOOD / Unknown 05/26/2023 8:18 EST 05/26/2023 16:48 EST Narrative [facility] - 05/26/2023 21:00 EST Fourth Generation assay performed on the Siemens Centaur XPT. Provider Outr Resulting Lab IMMUNOLOGY A ND SEROLOGY ORDERABLES [facility] [address] [place] [address] documented in this encounter Visit Diagnoses Not on filedocumented in this encounter
--- OUTSIDE RECORDS SUMMARY | 2023-11-23 18:39 | XMS_ITS | Continuity of Care Document ---
Author Organization [place] [facility], [facility] Address [address] [place] [address] Assessment No assessment recorded. Plan of Treatment Reminders Order Date Submit Date Provider Last Modified By Organization Details Last Modified Time Details Appointments New Patient 30 2023 09:10A M NINA ELIAS Not available Not available Not available Lab HIV (1+2) Ab screen, serum 2023 024 [employer] [facility] [address] [place] [address] [place], [address], 11/23/2023 10:53:07 RPR (rapid plasma reagin), serum 2023 024 [email or web address] [facility] ([facility]), [address] [place] [address] [place], [address], 11/23/2023 10:53:07 hepatitis C virus Ab, serum 2023 024 [email or web address] [facility] ([facility]), [address] [place] [address] [place], [address], 11/23/2023 10:53:07 venipunct ure 2023 024 Not available 11/23/2023 10:45:33 lyme antibody screen, EIA/wilma , serum 2023 024 [email or web address] [facility] ([facility]), [address] [place] [address] [place], [address], 11/23/2023 10:53:07 CT + NG RNA, urine 2023 [facility] ([facility]), [address] [place] [address], [place], [address], 11/23/2023 10:43:58 Referral None recorded. Procedures None recorded. Surgeries None recorded. Imaging None recorded. Medication Orders naproxen 500 mg tablet 2023 [facility], [address] [place] [address], [address], 11/23/2023 10:57:52 doxycycli ne hyclate 100 mg capsule 2023 [facility], [address] [place], [address], 11/23/2023 10:57:49 Patient TargetsNo targets recorded. Patient Instructions Encounter Date Encounter Id Patient Instructions Last Modified By Organization Details Last Modified Time 11/23/2023 [id number] Today, due to known exposure, we will empirically treat chlamydia with doxycycline twice a day for 7 days. As discussed, be sure to be care with sun exposure, and swallowing (take with full glass of water and stay upright for 30-60 minutes after taking. Do abstain from sexual activity until completing 7 day course of doxycycline. We are checking a full STI panel, which may need to be repeated in a few weeks to months after incubation period from this most recent exposure if you want to ensure no additional risks present. We will call with these results. Due to your knee swelling, we are also checking for any Lyme antibodies, and if there are signs of Lyme disease on labs, the doxycycline may need to be extended for a full 28 days for possible Lyme arthritis. [email or web address] Not available 11/23/2023 10:35:04 Reason for Referral None Reported. Medical Equipment None Reported. Allergies Allergen ID Allergen Name Allergen Category Reaction Reaction Severity Criticality Documentation Date Start Date Code Code System Note Provider Name and Address Organization Details Recorded Time 66592 codeine medicatio n nausea mild low 11/23/2023 0680 RxNorm GÓMEZ PRICE [place] [facility], [place] [facility]. 07/16/202 4 09:50:54 Medications Name Sig Start Date Stop Date Status Note LastModified by Organization Details LastModified Time doxycycline hyclate 100 mg capsule Take 1 capsule twice a day by oral route for 7 days. 024 active Not Available Not Available Not Avai lable naproxen 500 mg tablet Take 1 tablet twice a day by oral route for 10 days. 024 active Not Available Not Available Not Avai lable sertraline active Not Available Not Av ailable Not Available Vitals Date Recorded Body height Body mass index (BMI) Body weight Respiratory rate Body temperature Oxygen saturation Oxygen saturation in Arterial blood by Pulse oximetry Heart rate Systolic blood pressure Diastolic blood pressure Provider Name and Address Organization Details Last Updated DateTime 4 177.8 cm 28.7 kg/m2 35839.4 7 g 17 /min 98.8 [degF] 95 % 95 % 89 /min 147 mm[Hg] 79 mm[Hg] GÓMEZ PRICE [facility] 09:53:40 Social History Question Answer Notes LastModified by Organizat ion Details LastModified Time Tobacco Smoking Status Never Smoker NATACHA WYNN [facility] 11/23/2023 09:51:32 What Was The Date Of Your Most Recent Tobacco Screening? 11/23/2023 Information not available 11/23/2023 Has Tobacco Cessation Counseling Been Provided? No Information not available 11/23/2023 Do You Or Have You Ever Used Any Other Forms Of Tobacco Or Nicotine? No [email or web address] Information not available 11/23/2023 Sex: Unknown Functional Status None recorded. Mental Status None recorded. Family History Nothing Reported. Medical History No medical history recorded. Immunizations Vaccine Type Date Status Provider Name and Address Organization Details Recorded Time COVID-19, mRNA, LNP-S, bivalent, PF, 50 mcg/0.5 mL or 25mcg/0.25 mL dose 09/08/2020 completed NATACHA WYNN [facility] 11/23/2023 09:23:36 COVID-19, mRNA, LNP-S, bivalent, PF, 50 mcg/0.5 mL or 25mcg/0.25 mL dose 10/02/2020 completed NATACHA WYNN, [facility], [facility]. 11/23/2023 09:23:42 COVID-19, mRNA, LNP-S, bivalent, PF, 50 mcg/0.5 mL or 25mcg/0.25 mL dose 04/25/2021 completed NATACHA WYNN, [facility], [facility] 11/23/2023 09:23:47 Tdap 07/04/2019 completed NATACHA WYNN, [facility], [facility] 11/23/2023 09:24:01 Past Encounters Encounter ID Performer Location Encounter Start Date Encounter Closed Date Diagnosis/Indication Diagnosis SNOMED-CT Code [id number] DEBI SILVERIO [address] [address] 11/23/2023 09:10:58 11/23/2023 10:52:49 Exposure to chlamydia 0986961083074 Venereal d isease screening 730226045 Swelling o f knee joint 980591824 Health Concerns Section Related Observation LastModified by Organization Detai ls LastModified Time None Recorded Concern Status LastModified by Organization Details LastModified Time None Recorded Payers Encounter Date Sequence Insurance Name Policy Number Policy Gutierrez Covered Member ID Gutierrez Member ID Guarantor Name 11/23/2023 1 [place] [facility] David Morrow [id number] David Morrow Notes Date Note Type Note Provider Name and Address Organization Details Recorded Time 11/23/2023 text/html HPI Notes: Ruby sena was notified by sexual partner (with whom he has had unprotected sex X2 in the last few weeks) that she tested for chlamydia. Patient denies any current urinary symptoms, no penile discharge. Last patient prior to this was >1 year ago, and has not had any recent STI testing. 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 Has been taking Tylenol 500 mg up to BID for pain, avoids NSAIDs (as he was told he had liver issues, and was concerned NSAIDs caused liver damage) Denies any recent attached ticks, and checks regularly for ticks. Does take his dogs for walks, and does have some mild risk for tick exposure. DEBI SILVERIO [address], [place], [address], [facility] - [facility]. 11/23/2023 10:58:00
--- OUTSIDE RECORDS SUMMARY | 2023-11-23 18:39 | XMS_ITS | Encounter Summary ---
Author Organization [facility] Address [phone] [facility] [place] [address] Care Team Providers Care Drapery Rod Assembler Name Role Phone Shant Bradford DO Primary Care Provider + Reason for Referral * Physical Therapy (Within 1 month) - Closed Specialty Diagnoses / Procedures Referred By Charla t Referred To Contact Diagnoses Status post total left knee replacement Mary Nava PA-C [address] [place] [address] Email: [email or web address] Referral ID Status Reason Start Date Expiration Date Visits Re quested Visits Authorized [id number] Closed 05/06/2022 05/06/2023 1 1 Encounter Details Date Type Department Care Team (Late Contact Info) Description 05/06/2022 Orders Only [facility] Department of Orthopaedics [address] [place] [address] Mary Nava PA-C [address] [place] [address] [email or web address] post total left knee replacement (Primary Dx) Social History Tobacco Use Types Packs/Day Years [...] AM EST documented as of this encounter Plan of Treatment Scheduled Referrals Name Type Priority Associated Diagnoses Orde r Schedule Ambulatory referral to External Physical Therapy Outpatient Referral Routine Status post total left knee replacement Ordered: 05/06/2022 documented as of this encounter Visit Diagnoses Diagnosis Status post total left knee replacement- Primary documented in this encounter Care Teams Drapery Rod Assembler Relationship Specialty Start Date End Date Shant Bradford DO [address] [place] [address] PCP - General 07/16/20 documented as of this encounter Additional Source Comments The information contained in this document represents components of the legal health record. It is not the complete legal health record.[facility]
--- OUTSIDE RECORDS SUMMARY | 2023-11-23 18:39 | XMS_ITS | Encounter Summary ---
Author Organization [facility] Address [phone] [facility] [address] [place] [address] Care Team Providers Care Culinary Art Teacher Name Role Phone Shant Bradford DO Primary Care Provider + Encounter Details Date Type Department Care Team (Latest Contact Info) Description 03/31/2023 2:24 PM EST - 03/31/2023 11:59 PM EST Hospital Encounter [address] [address] Adriana Ragsdale MD [address] [place] [id number] [email or web address] Disposition: Home or Self Care Social History Tobacco Use Types Packs/Day Years [...] AM EST documented as of this encounter Medications at Time of Discharge Medication Sig Dispensed Refills Start Date End Date acetaminophen (TYLENOL) 325 mg tabletIndications:Stat us post total left knee replacement Take 3 tablets (975 mg total) by mouth every 8 (eight) hours. 90 tablet 1 05/18/2022 amoxicillin (AMOXIL) 500 MG capsuleIndications:Sta tus post total left knee replacement Take 4 capsules (2,000 mg total) by mouth once as needed (One hour before dental, colonoscopy or endoscopy for 2 years post surgery). 20 capsule 1 05/18/2022 cetirizine (ZYRTEC) 10 MG tablet Take 10 mg by mouth daily. omeprazole (PRILOSEC) 10 MG capsule Take 10 mg by mouth daily. oxyCODONE 5 MG immediate release tabletIndications:Stat us post total left knee replacement Take 1 tablet (5 mg total) by mouth 3 (three) times a day as needed. Partial fill ok 21 tablet 05/18/2022 sertraline (ZOLOFT) 50 MG tablet Take 75 mg by mouth daily. 1.5 tablets documented as of this encounter Plan of Treatment Not on file documented as of this encounter Procedures Procedure Name Priority Date/Time Associated Diagnosis Comments XR KNEE 4 OR MORE VIEWS (LEFT) Routine 03/31/2023 2:38 PM EST Chronic pain of left knee documented in this encounter Results * XR KNEE 4 OR MORE VIEWS (LEFT) (03/31/2023 2:38 PM EST) Anatomical Region Laterality Modality Knee Left Radiographic Christal ging 03/31/2023 3:18 PM EST Impressions 03/31/2023 3:21 PM EST Left total knee arthroplasty, no complication. Narrative 03/31/2023 3:21 PM EST XR KNEE 4 OR MORE VIEWS (LEFT) Referring clinician's provided indication for this examination in Epic: Pain COMPARISON: XR KNEE 1-2 VIEWS (LEFT) ; XR KNEE 4 OR MORE VIEWS (BILATERAL) FINDINGS: Left Knee: Total knee arthroplasty. Hardware is intact and in anatomic position. No periprosthetic lucency or fracture. Trace effusion. Sequelae of ACL reconstruction. Frontal and sunrise evaluation of the right knee demonstrates mild medial compartment narrowing with bicompartmental osteophytes and sequelae of ACL reconstruction. Procedure Note Og Serrano MD, PhD - 03/31/2023 XR KNEE 4 OR MORE VIEWS (LEFT) Referring clinician's provided indication for this examination in Epic:Pain COMPARISON: XR KNEE 1-2 VIEWS (LEFT) ; XR KNEE 4 OR MORE VIEWS(BILATERAL) FINDINGS: Left Knee: Total knee arthroplasty. Hardware is intact and in anatomicposition. No periprosthetic lucency or fracture. Trace effusion. Sequelaeof ACL reconstruction. Frontal and sunrise evaluation of the right knee demonstrates mild medialcompartment narrowing with bicompartmental osteophytes and sequelae of ACLreconstruction. IMPRESSION: Left total knee arthroplasty, no complication. Adriana Ragsdale MD IMG XR LOWER EXTREMI TY documented in this encounter Visit Diagnoses Diagnosis Chronic pain of left knee documented in this encounter Care Teams Culinary Art Teacher Relationship Specialty Start Date End Date Shant Bradford DO [address] [place] [address] PCP - General 07/16/20 documented as of this encounter Additional Source Comments The information contained in this document represents components of the legal health record. It is not the complete legal health record.[facility]
--- OUTSIDE RECORDS SUMMARY | 2023-11-23 18:39 | XMS_ITS | Encounter Summary ---
Author Organization [facility] Address [phone] [facility] [place] [address] Care Team Providers Care Health Education Director Name Role Phone Shant Bradford DO Primary Care Provider + Encounter Details Date Type Department Care Team (Late st Contact Info) Description 05/05/2022 Procedure Pass BWF Periop 6th floor [address] [place] [address] Social History Tobacco Use Types Packs/Day Years [...] on filedocumented in this encounter Care Teams Health Education Director Relationship Specialty Start Date End Date Shant Bradford DO [address] [place] [address] PCP - General 07/16/20 documented as of this encounter Additional Source Comments The information contained in this document represents components of the legal health record. It is not the complete legal health record.[facility]
--- OUTSIDE RECORDS SUMMARY | 2023-11-23 18:39 | XMS_ITS | Clinical Summary ---
Author Organization [facility] Address [address] [place] [address] Care Team Providers Care Field Operations Coordinator Name Role Phone Unavailable Primary Care Provider Unavailabl e Encounters Date Type Department Care Team Description 11/23/2023 Lab Requisition [facility] Pathology & Laboratory [facility] [address] [place] [address] Outr Resulting Lab, Provider 11/23/2023 Lab Requisition [facility] Pathology & Laboratory [facility] [address] [place] [address] Outr Resulting Lab, Provider from Last 3 Months Social History Tobacco Use Types Packs/Day Years Used Date Smoking Tobacco: Never Assessed Interpersonal Safety Answer Date Record ed Physically Hurt Never 04/02/2020 Verbally Threaten Not on file 04/02/2020 Sex and Gender Information Value Date Recorded Sex Assigned at Not on file Gender Identity Not on file Sexual Orientation Not on file Plan of Treatment Health Maintenance Due Date Last Done Comments Hepatitis B Vaccine (1 of 3 - 19+ 3-dose series) 02/04 COVID-19 Vaccine (2022- season) 2023 Hepatitis C Screen Completed 05/26/2023 Procedures Procedure Name Priority Date/Time Associated Diagnosis Comments HEPATITIS C AB W REFLEX TO HCV RNA BY PCR Routine 05/26/2023 8:18 EST from Last 3 Months or Most Recently Relevant to Health Maintenance Results * HEPATITIS C AB W REFLEX TO HCV RNA BY PCR (05/26/2023 8:18 EST) Hep C Antibody Negative Negative 05/26/2023 19:[address] [facility] Blood VENOUS BLOOD / Unknown 05/26/2023 8:18 EST 05/26/2023 16:48 EST Provider Outr Resulting Lab CHEMISTRY & BLOOD GAS ORDERABLES [facility] [address] [place] [address] from Last 3 Months or Most Recently Relevant to Health Maintenance
--- OUTSIDE RECORDS SUMMARY | 2023-11-23 18:39 | XMS_ITS | Encounter Summary ---
Author Organization [facility] Address [address] [place] [address] Care Team Providers Care Byproducts Operator Name Role Phone Unavailable Primary Care Provider Unavailabl e Encounter Details Date Type Department Care Team (Late st Contact Info) Description 05/26/2023 Lab Requisition [facility] Pathology & Laboratory [facility] [address] [place] [address] Outr Resulting Lab, Provider Social History Tobacco [...] RNA BY PCR Routine 05/26/2023 8:18 EST documented in this encounter Results * HEPATITIS C AB W REFLEX TO HCV RNA BY PCR (05/26/2023 8:18 EST) Hep C Antibody Negative Negative 05/26/2023 19:26 EST [facility] Blood VENOUS BLOOD / Unknown 05/26/2023 8:18 EST 05/26/2023 16:48 EST Provider Outr Resulting Lab CHEMISTRY & BLOOD GAS ORDERABLES [facility] [address] [place] [address] documented in this encounter Visit Diagnoses Not on filedocumented in this encounter
--- OUTSIDE RECORDS SUMMARY | 2023-11-23 18:39 | XMS_ITS | Encounter Summary ---
Author Organization [facility] Address [phone] [place] [id number] Care Team Providers Care Supervisor Telephone Information Name Role Phone Shant Bradford DO Primary Care Provider + Reason for Visit * Reason Comments Post-op L knee dos 05/05 dls 12/18 by Mary Encounter Details Date Type Department Care Team ([facility] Contact Info) Description 05/18/2022 3:15 PM EST Office Visit [facility] Department of Orthopaedics [address] [place] [address] Adriana Ragsdale MD [address] [place] [id number] [email or web address] Status post total left knee replacement (Primary Dx) Social History Tobacco Use Types Packs/Day Years Used Date Smoking Tobacco: Never Smokeless Tobacco: Never Tobacco Cessation:Counseling Given: Not Answered Alcohol Use Standard Drinks/Week Comments Not Currently [...] Pressure - - Pulse - - Temperature 36.7 ??C (98 ??F) 05/18/2022 2:56 PM EST Respiratory Rate - - Oxygen Saturation - - Inhaled Oxygen Concentration - - Weight - - Height - - Body Mass Index - - documented in this encounter Progress Notes * Adriana Ragsdale MD - 05/18/2022 3:15 PM EST Images from the original note were not included. Adriana Ragsdale MD, ASHLEY Director of Research, Arthroplasty Services [employer] David Morrow ?DATE OF : @ DATE OF SERVICE: 05/18/22 Diagnosis: 1. Status post total left knee replacement acetaminophen (TYLENOL) 325 mg tablet naproxen (NAPROSYN) 500 MG tablet oxyCODONE 5 MG immediate release tablet amoxicillin (AMOXIL) 500 MG capsule Surgery: L TKR kwame with lateral release 05/05/22 HPI: This patient presents today for 2 weeks follow-up appointment. Patient is doing well with the left knee replacement. Patient is taking care of the blisters and changing as needed with the dressing. Patient have no fever chills. Patient is taking oxycodone a couple times a day during the night.Patient is on Naprosyn and Tylenol during the day. Patient will switch to [place] outpatient physical therapy from [place] very soon. Patient would like to work on May 20 remotely and will be able to travel until after June 09, patient's work note was given to him today he did notice some clicking sensation of the left knee however is not painful. Patient does feel left leg is straighter and felt her right leg might be slightly shorter. He would like to have PT work on his gait changes. PHYSICAL EXAMINATION: Vitals: 05/18/22 1456 Temp: 36.7 ??C (98 ??F) TempSrc: Temporal There is no height or weight on file to calculate BMI. Patient is a male; alert and oriented, in no acute distress. Well developed, appropriate affect. left knee reveals: Nicely healed wound. No erythema, no effusion, no drainage. Blisters covered well area of the medial side of the incision incisions well- healed otherwise ROM: 3-100 Stable to varus and valgus stress, and anterior and posterior stress Calf is supple and nontender. Neurovascularly intact. Grossly in tact to light touch. X-rays of the patient's left knee were ordered and were reviewed. X-rays demonstrate that the patient's components are in the correct position with neutral alignment, no radiolucency and central patellar tracking.? ?VISIT DIAG: Status post total left knee replacement [Z96.652] ? What is discussed: The above patient is doing well following left total knee arthroplasty without complications. The patient will follow up in 4-6 weeks. We do not need take x-rays of the left knee at that time. We renewed him oxycodone Naprosyn and Tylenol as well as amoxicillin for dental prophylaxis. Back to work note is given to him today patient will given outpatient physical therapy prescription again today. Adaptive dressing was given to the patient and he will continue to monitor the blister area which is healing well. The patient was counseled to call and/or return to the office if any concerns arose in the mean time. This is Mary Nava PA-C, who saw this patient in a shared visit with Dr. Ragsdale. I performed the history and physical exam portion of this visit. SHARED VISIT STATEMENT This is a Shared Visit with my PA. I have performed a history and physical exam, reviewed the patient's health status survey as applicable, and have reviewed the above note. PLAN: The patient is overall doing well after left total knee replacement. He did have a blister with the dressing. He will follow-up in 4 to 6 weeks at that time. His medications were renewed, and amoxicillin was given for dental prophylaxis. He will start outpatient physical therapy and return back to work. He will apply adaptive dressing to the blister area. The patient will follow-up in 4-6 weeks. Adriana Ragsdale MD/ASHLEY Orthopaedic attending This note was dictated using grabHalo software. While it was briefly proofread prior to completion, some grammatical, spelling, and word choice errors due to dictation may still occur. Current view: Showing all answers Proms Msk All Joints Selector New Question 05/17/2022 6:30 PM EST - Filed by Patient What is the reason for your visit? Please also select any joints/areas for which you are scheduled or have recently had surgery. Knee Previous Responses Proms Msk Knee Root New Question 05/04/2022 4:21 PM EST - Filed by Patient The following questions provide your doctor and care team with valuable information. Answering these questions will allow them to take better care of you. Please note that your care team might not view your answers immediately. If you have medical questions that you need urgently answered, please call your doctor's office. For emergencies, call 911. Your responses are confidential. By starting the questionnaire, you understand that your responses will become part of your medical record. They will be available to your doctor and care team. Get started Does your health now limit you in doing vigorous activities, such as running, lifting heavy objects, participating in strenuous sports? Cannot do Does your health now limit you in walking more than a mile? (1.6 km) Somewhat Does your health now limit you in climbing one flight of stairs? Very little Does your health now limit you in lifting or carrying groceries? Somewhat Does your health now limit you in bending, kneeling, or stooping? Quite a lot Are you able to do chores such [...] on and get up from the toilet? Without any difficulty (interim score for calculation purposes only) (range: 10 - 50) 38 PROMs PROMIS Physical Function SF10a (range: 0 - 62) 40.9 (Mild) In general, would you say your health is: Good In general, would you say your quality of life is: Good In general, how would you rate your physical health? Fair In general, how would you rate your mental health, including your mood and your ability to think? Good In general, how would you rate your satisfaction with your social activities and relationships? Fair In general, please rate how well you [...] such as feeling anxious, depressed or irritable? Sometimes How would you rate your fatigue on average? Mild How would you rate your pain on average? (0=No pain, 10=Worst imaginable pain) 3 PROMs PROMIS Global Health Short Form Score (Physical) (range: 16 - 68) 44.9 (Good) PROMs PROMIS Global Health Short Form Score (Mental) (range: 21 - 68) 41.1 (Good) Please indicate the degree of difficulty you have experienced in the LAST WEEK due to your knee problem. Rising from bed Mild Putting on socks/stockings None Rising from sitting Mild Bending to floor Mild Twisting/pivoting on your injured knee Extreme Kneeling Severe Squatting Moderate PROMs KOOS-PS Raw Score (range: 0 - 28) 12 PROMs Knee Outcome Score (KOOS-PS) (range: 0 - 100) 63 (Mild) In the past 7 days, what most affected your physical function? Left knee In the past 7 days, what most affected your pain? Left knee Are you a new patient or being seen for a new problem? Yes What is your age group? 50-65 years Gender? Male How far on average can you walk? (a block is 200 metres) Two blocks or more (+/- rest) Which gait aid do you use? (more often than not) None Do you use community supports? (home help, meals on wheels, district nursing) None or one per week Will you live with someone who can care for you after your operation? Yes PROMs Risk Assessment and Prediction Tool (RAPT) Score (range: 1 - 12) 12 (Directly Home) ARE YOU AWARE OF YOUR JOINT... ???in bed at night? Never ???when you are sitting on a chair for more than one hour? Almost never ???when you are walking for more than 15 minutes? Seldom ???when you are taking a shower or bath? Almost never ???when you are traveling in a car? Almost never ???when you are climbing stairs? Sometimes ???when you are walking on uneven ground? Mostly ???when you are standing up from a low-sitting position? Sometimes ???when you are standing for long periods of time? Sometimes ???when you are doing housework or gardening? Seldom ???when you are taking a walk or hiking? Mostly ???when you are doing your favorite sport? Mostly (interim score for calculation purposes only) (range: 0 - 12) 12 (interim score for calculation purposes only) (range: 0 - 48) 28 PROMs Forgotten Joint Score (range: 0 - 100) 41.67 (Higher is better) documented in this encounter Plan of Treatment Not on file documented as of this encounter Visit Diagnoses Diagnosis Status post total left knee replacement- Primary documented in this encounter Care Teams Supervisor Telephone Information Relationship Specialty Start Date End Date Shant Bradford DO [address] [facility] [place] [address] PCP - General 07/16/20 documented as of this encounter Additional Source Comments The information contained in this document represents components of the legal health record. It is not the complete legal health record.[facility]
--- OUTSIDE RECORDS SUMMARY | 2023-11-23 18:39 | XMS_ITS | Encounter Summary ---
Author Organization [facility] Address [address] [place] [address] Care Team Providers Care Transfer Car Operator Name Role Phone Unavailable Primary Care Provider Unavailabl e Encounter Details Date Type Department Care Team (Late st Contact Info) Description 10/09/2019 Lab Requisition [facility] Pathology & Laboratory Medicine - [facility] [address] [place] [address] Outr Resulting Lab, Provider Social History Tobacco Use Types Packs/Day Years Used Date Smoking Tobacco: Never Assessed Sex and Gender Information Value Date Recorded Sex Assigned at Not on file Gender Identity Not on file Sexual Orientation Not on file documented as of this encounter Plan of Treatment Not on file documented as of this encounter Procedures Procedure Name Priority Date/Time Associated Diagnosis Comments DO NOT ORDER STANDALONE - BROAD COVID TEST Today 10/09/2019 11:32 EDT COVID-19 TESTING Routine 10/09/2019 11:3 2 EDT documented in this encounter Results * DO NOT ORDER STANDALONE - BROAD COVID TEST (10/09/2019 11:32 EDT) COVID-19 rt-PCR Result NEGATIVE Negative 10/10/2019 12:10 EDT [facility] Comment: 2019-novel Coronavirus (2019-nCoV) not detected by the qRT-PCR assay. Consider testing for other respiratory viruses or re-collecting for 2019-nCoV testing. Note: Optimum timing for peak viral levels during infections caused by 2019-nCoV have not been determined. Collection of multiple specimens from the same patient may be necessary to detect the virus. Limitations Positive results are indicative of active infection with SARS-CoV-2 but do not rule out bacterial infection or co-infection with other viruses. The agent detected may not be the definite cause of disease. In addition, detection of viral RNA may not indicate the presence of infectious virus or that SARS-CoV-2 is the causative agent for clinical symptoms. Negative results do not preclude SARS-CoV-2 infection and should not be used as the sole basis for patient management decisions. Negative results must be combined with clinical observations, patient history, and epidemiological information. False negative results may also occur if amplification inhibitors are present in the specimen or if inadequate numbers of organisms are present in the specimen. Optimum specimen types and timing for peak viral levels during infections caused by SARS-CoV-2 have not been fully determined. Collection of multiple specimens (types and time points) from the same patient may be necessary to detect the virus. The test was validated for use with upper respiratory specimens obtained via nasopharyngeal or oropharyngeal swabs in VTM, UTM, M4, M5, M6, saline, and MTM media. The performance of this test has not been established for other specimens. Specimens collected using other FDA recommended Specimen Collection Materials listed in the FDA COVID-19 Diagnostic [employer] communication (August 03, 2019) are processed with the caveat that they were not all validated for use with this test and the result must be interpreted in this context. Furthermore, a false negative results may occur if a specimen is improperly collected, transported or handled. If the virus mutates in the RT-PCR target region, SARS-CoV-2 may not be detected or may be detected less predictably. Inhibitors or other types of interference may produce a false negative result. An interference study evaluating the effect of common cold medications was not performed. This test is not FDA-cleared but its performance characteristics were established by our CLIA-certified, CAP-accredited, high complexity laboratory in accordance with CLIA regulations, College [employer] (CAP) guidelines (Jul 27, 2019), and FDA guidance (Jul 08, 2019). This test is only for use under the Food and Drug Administration's Emergency Use Authorization. Swab ENTIRE NASOPHARYNX / Unknown 10/09/2019 11:32 EDT 10/09/2019 15:43 EDT Provider Outr Resulting Lab MICROBIOLOGY - GENERAL ORDERABLES [facility] * COVID-19 TESTING (10/09/2019 11:32 EDT) [facility] COVID-19 rt-PCR Result NEGATIVE Negative 10/10/2019 14:51 EDT [facility] Comment: 2019-novel Coronavirus (2019-nCoV) not detected by the qRT-PCR assay. Consider testing for other respiratory viruses or re-collecting for 2019-nCoV testing. Note: Optimum timing for peak viral levels during infections caused by 2019-nCoV have not been determined. Collection of multiple specimens from the same patient may be necessary to detect the virus. Limitations Positive results are indicative of active infection with SARS-CoV-2 but do not rule out bacterial infection or co-infection with other viruses. The agent detected may not be the definite cause of disease. In addition, detection of viral RNA may not indicate the presence of infectious virus or that SARS-CoV-2 is the causative agent for clinical symptoms. Negative results do not preclude SARS-CoV-2 infection and should not be used as the sole basis for patient management decisions. Negative results must be combined with clinical observations, patient history, and epidemiological information. False negative results may also occur if amplification inhibitors are present in the specimen or if inadequate numbers of organisms are present in the specimen. Optimum specimen types and timing for peak viral levels during infections caused by SARS-CoV-2 have not been fully determined. Collection of multiple specimens (types and time points) from the same patient may be necessary to detect the virus. The test was validated for use with upper respiratory specimens obtained via nasopharyngeal or oropharyngeal swabs in VTM, UTM, M4, M5, M6, saline, and MTM media. The performance of this test has not been established for other specimens. Specimens collected using other FDA recommended Specimen Collection Materials listed in the FDA COVID-19 [employer] communication (August 03, 2019) are processed with the caveat that they were not all validated for use with this test and the result must be interpreted in this context. Furthermore, a false negative results may occur if a specimen is improperly collected, transported or handled. If the virus mutates in the RT-PCR target region, SARS-CoV-2 may not be detected or may be detected less predictably. Inhibitors or other types of interference may produce a false negative result. An interference study evaluating the effect of common cold medications was not performed. This test is not FDA-cleared but its performance characteristics were established by our CLIA-certified, CAP-accredited, high complexity laboratory in accordance with CLIA regulations, College [employer] (CAP) guidelines (Jul 27, 2019), and FDA guidance (Jul 08, 2019). This test is only for use under the Food and Drug Administration's Emergency Use Authorization. Performing Lab [facility] [place] 10/10/2019 14:51 EDT [facility] Swab ENTIRE NASOPHARYNX / Unknown 10/09/2019 11:32 EDT 10/09/2019 15:43 EDT Provider Outr Resulting Lab MICROBIOLOGY - GENERAL ORDERABLES [facility] [address] [place] [address] [facility] [place], [place] documented in this encounter Visit Diagnoses Not on filedocumented in this encounter
--- OUTSIDE RECORDS SUMMARY | 2023-11-23 18:39 | XMS_ITS | Encounter Summary ---
Author Organization [facility] Address [phone] [place] [address] Care Team Providers Care Bindery Machine Operator Name Role Phone Shant Bradford DO Primary Care Provider + Encounter Details Date Type Department Care Team (Late st Contact Info) Description 05/12/2022 Documentation [facility] Orthopedics - [place] [address] [address] Mary Nava PA-C [address] [place], [place] [id number] [email or web address] Social History Tobacco Use Types Packs/Day Years [...] as of this encounter Progress Notes * Mary Nava PA-C - 05/12/2022 7:32 PM EST Instructed the patient through Zoom for dressing removal and blister care for the left total knee replacement surgery. Patient and his mother was able to help to remove the dressing the incision looks clear and dry the blister area is medial to the left knee incision not contacting incision about area of 2 inch in diameter. Patient's blister area unfortunately skin were removed during the processof removal dressing, patient had Vaseline and gauze to the area and dressing was wrapped to the left knee. Patient will keep the area clean until healed. He will update us with pictures of the wound [place] for follow-up for the wound care. Mary Nava PA-C Orthopaedic Department [facility] [address] [place] [address], [place] [address] Office: [phone] documented in this encounter Plan of Treatment Not on file documented as of this encounter Visit Diagnoses Not on filedocumented in this encounter Care Teams Bindery Machine Operator Relationship Specialty Start Date End Date Shant Bradford DO [address] [place] [address] PCP - General 07/16/20 documented as of this encounter Additional Source Comments The information contained in this document represents components of the legal health record. It is not the complete legal health record.[facility]
--- OUTSIDE RECORDS SUMMARY | 2023-11-23 18:39 | XMS_ITS | Encounter Summary ---
Author Organization [facility] Address [phone] [place] [id number] Care Team Providers Care Insurance Coder Name Role Phone Shant Bradford DO Primary Care Provider + Reason for Referral * Physical Therapy (Within 3 days (urgent)) - Closed Specialty Diagnoses / Procedures Referred By Contac t Referred To Contact Physical Therapy Areli Walters, [employer] RE[employer] CUTTER [address] [place] [address] Email: [email or web address] Referral ID Status Reason Start Date Expiration Date Visits Re quested Visits Authorized [id number] Closed 05/06/2022 05/07/2023 1 1 Reason for Visit * Auth/Cert Specialty Diagnoses / Procedures Referred By Contac t Referred To Contact Diagnoses Primary osteoarthritis of left knee Left Total Knee Replacement Lelo Lateral Release Procedures ND TOTAL KNEE ARTHROPLASTY ROBOTIC ARTHROPLASTY TOTAL KNEE WITH LATERL RELEASE Referral ID Status Reason Start Date Expiration Date Visits Re quested Visits Authorized [id number] 1 1 Encounter Details Date Type Department Care Team (Latest Contact Info) Description 05/05/2022 12:13 PM EST - 05/06/2022 9:13 AM EST Hospital Encounter [facility] Periop 6th floor [address] [place] [address] Adriana Ragsdale MD [address] [place] [id number] [email or web address] [email or web address] Disposition: Home or Self Care Social [...] Sign Reading Time Taken Comments Blood Pressure 156/80 05/06/2022 8:25 AM EST Pulse 89 05/06/2022 8:25 AM EST Temperature 37.4 ??C (99.3 ??F) 05/06/2022 8:25 AM ES T Respiratory Rate 16 05/06/2022 7:35 AM EST Oxygen Saturation 100% 05/06/2022 8:25 AM EST Inhaled Oxygen Concentration - - Weight 90.7 kg (200 lb) 05/05/2022 12:37 PM EST Height 175.3 cm (5' 9) 05/05/2022 12:37 PM EST Body Mass Index 29.53 05/05/2022 12:37 PM EST documented in this encounter Discharge Summaries * Areli Walters NP - 05/06/2022 7:56 AM EST Images from the original note were not included. Physician Discharge Summary Admit date: 05/05/2022 Discharge date: 05/06/2022 Patient Information David Morrow, 32 y.o. male ( = 1990) Home Address: [address] [place] [id number] (home) Preferred Language: Slovak Written Language: Slovak Needs Senior Qa Engineer: No Type of Advance Care Directive(s): None Health Care Agents There are no Health Care Agents on file. Code Status at Discharge: Full Code To be discharged to: Discharged / Transferred to home under care of organized home health service organization in anticipation of covered skilled care Patient/Family/Caregiver discharge preference/goals : Home Patient/Family/Caregiver have been provided a list of discharge facilities/services to review/select: Home Health Services Discharge address same as facesheet: Yes Historical information Principal Problem: S/P TKR (total knee replacement) using cement, left Resolved Problems: * No resolved hospital problems. * Surgical (OR) Procedures: Surgeries this admission Past Procedures (05/05/2022 to Today) Date Procedures Providers 05/05/2022 ROBOTIC ARTHROPLASTY TOTAL KNEE WITH LATERL RELEASE Adriana Ragsdale (Primary)Kenny Chiu Staff: Mary Nava PA-C - Physician AssistantKennedy Fay MD - Anesthesia AttendingParrott, Juana De Guzman CRNA - Nesha Zimmerman CRNA - Iva Rose CRNA - Kenny Sheikh MD - FellowChen, Adriana Cee MD - Primary Procedures this admission None Non (OR) Procedures: Pending Results None Hospital Course Davdi Morrow is a 32 y.o. male who has a history of left knee osteoarthritis, which has failedconservative medical management, therefore was admitted to the [facility] and underwent an elective left total knee replacement on 05/05/2022 with Adriana Ragsdale MD. David Morrow is a 32 y.o. male underwent the above procedure by Adriana Ragsdale MD at [facility] on 05/05/2022. The patient tolerated the procedure well and was transferred to the post anesthesia care unit and later to the surgical gastelum for ongoing postoperative management by the Orthopedic Surgery Service in stable condition. Please refer to the operative reportfor full procedural details. The remaining hospital course is listed below by systems: Neuro: A multimodal pain regimen was started immediately post op. The patient was started on Scheduled Tylenol, Tramadol as needed for moderate pain, and Dilaudid as needed for severe pain. Toradol IV was given for 24 hours PRN and then discontinued., Pt was given Decadron 10 mg po on POD#1 and #2., and NSAIDs were started on POD#1 and continued for 2 weeks. Neurontin was prescribed 100mg TID for 28 days for TKAs only Discharge pain medications were reviewed and patient was instructedon how to wean off narcotics. ID: Vancomycin IV and Ancef IV were administered perioperatively for Infectious Disease prophylaxis. There were no obvious signs or symptoms of infection at the time of discharge. Pulm: Post operatively oxygen was weaned and active incentive spirometry was encouraged. The patient had no SOB or Hypoxia. CVS: Post operatively patient was given IV fluids for hydration. Vital signs were routinely monitored. Patient was resumed on their home cardiac meds as BP tolerated. . Patient had no chest pain or shortness of breath. Heme: Postoperative hematocrits were followed and were stable. The patient was prescribed the following for DVT prophylaxis: Aspirin 81 mg twice daily, which should be continued for 4 weeks. F/E/N: IV fluids were continued until the patient had adequate PO intake. Patients diet was advanced as tolerated. Electrolytes were monitored and were stable. GI: Prior to discharge patient had an adequate appetite. Patient was started on stool softeners andgentle laxatives post op to combat narcotic induced constipation.Due to use of NSAIDs, the patient started on a PPI for 2 weeks. and Patient was prescribed Zofran for nausea. : No solares was placed. Patient was voiding independently at time of discharge. MSK: Patient was seen and evaluated by physical therapy for assistance with gait training, strengthening and endurance. Patient was kept weight bearing as tolerated and placed on fall precautions. Physical therapy reviewed all PT instructions and range of motion restrictions. Medications Allergies: Shellfish containing products, Codeine, and Hazelnut Prior to Admission Medications Prescriptions cetirizine (ZYRTEC) 10 MG tablet Sig: Take 10 mg by mouth daily. cyclobenzaprine (FLEXERIL) 5 MG tablet Sig: Take 5 mg by mouth 3 (three) times a day as needed for muscle spasms. Patient not taking: Reported on 04/28/2022 omeprazole (PRILOSEC) 10 MG capsule Sig: Take 10 mg by mouth daily. sertraline (ZOLOFT) 50 MG tablet Sig: Take 75 mg by mouth daily. 1.5 tablets Facility-Administered Medications: None Medication List STOP taking these medications cyclobenzaprine 5 MG tablet Commonly known as: FLEXERIL TAKE these medications Instructions acetaminophen 325 mg tablet Commonly known as: TYLENOL Last time this was given: May 06, 2022 6:23 AM Take 3 tablets (975 mg total) by mouth every 8 (eight) hours. aspirin 81 MG EC tablet Last time this was given: May 06, 2022 6:24 AM Take 1 tablet (81 mg total) by mouth 2 (two) times a day for 28 days. cetirizine 10 MG tablet Commonly known as: ZyrTEC Take 10 mg by mouth daily. dexAMETHasone 2 MG tablet Commonly known as: DECADRON Last time this was given: May 06, 2022 6:25 AM Take 5 tablets (10 mg total) by mouth daily for 1 dose. Start taking on: May 07, 2022 docusate sodium 100 MG capsule Commonly known as: COLACE Last time this was given: May 06, 2022 6:24 AM Take 1 capsule (100 mg total) by mouth 2 (two) times a day. naproxen 500 MG tablet Commonly known as: NAPROSYN Last time this was given: May 06, 2022 6:24 AM Take 1 tablet (500 mg total) by mouth 2 (two) times a day with meals for 14 days. * omeprazole 20 MG capsule Commonly known as: PriLOSEC Last time this was given: Ask your nurse or doctor Take 1 capsule (20 mg total) by mouth daily before breakfast for 14 days. What changed: You were already taking a medication with the same name, and this prescription was added. Make sure you understand how and when to take each. Start taking on: May 07, 2022 * omeprazole 10 MG capsule Commonly known as: PriLOSEC Last time this was given: Ask your nurse or doctor Take 10 mg by mouth daily. What changed: Another medication with the same name was added. Make sure you understand how and when to take each. ondansetron 4 MG tablet Commonly known as: ZOFRAN Take 1 tablet (4 mg total) by mouth every 6 (six) hours as needed. oxyCODONE 5 MG immediate release tablet Last time this was given: May 05, 2022 11:57 PM Take 1-2 tablets (5-10 mg total) by mouth every 4 (four) hours as needed. Partial fill ok senna 8.6 mg tablet Commonly known as: SENOKOT Last time this was given: May 05, 2022 11:57 PM Take 2 tablets by mouth 2 (two) times a day. sertraline 50 MG tablet Commonly known as: ZOLOFT Take 75 mg by mouth daily. 1.5 tablets * This list has 2 medication(s) that are the same as other medications prescribed for you. Read thedirections carefully, and ask your doctor or other care provider to review them with you. Where to Get Your Medications These medications were sent to [facility]/pharmacy #[id number] - [place] - [address] [facility] [address] [facility] [address] ?? acetaminophen 325 mg tablet ?? aspirin 81 MG EC tablet ?? dexAMETHasone 2 MG tablet ?? docusate sodium 100 MG capsule ?? naproxen 500 MG tablet ?? omeprazole 20 MG capsule ?? ondansetron 4 MG tablet ?? oxyCODONE 5 MG immediate release tablet ?? senna 8.6 mg tablet Hospital Care Team Service: Orthopedics Inpatient Attending: Adriana Ragsdale MD Attending phys phone: [facility] Care Physician: Shant Bradford DO [phone] Transitional Plan Scheduled appointments: Scheduled Appointments (maximum listed = 10) Provider Department Dept Phone Center Visit Type 05/18/2022 3:15 PM Adriana Ragsdale MD [facility] Department of Orthopaedics [phone] [facility] POST OP VISIT 06/15/2022 2:00 PM Adriana Ragsdale MD [facility] Department of Orthopaedics [phone] [facility] POST OP VISIT Signed Discharge Orders (From admission, onward) Ordered 05/06/22 075 Activity as tolerated 05/06/22 075 Other, please specify Comments: See specific patient instructions. 05/06/22752 Discharge diet Question: Diet type Answer: Regular 05/06/22752 For any questions call Treatment Team: Surgeon: Adriana Ragsdale MD [phone] Comments: For any questions call Treatment Team: Surgeon: Adriana Ragsdale MD [phone] 05/06/22 075 Wound care Comments: Remove dressing 7 days after surgery. 05/06/22 075 Ambulatory referral to External Physical Therapy Question Answer Comment Location: PT External Reason for Referral: Post Operative Surgical Care Specific instructions / precautions: s/p left total knee replacement 05/05/22 1246 COVID-19 Antigen (Flowflex), Nasal Swab Comments: This is an external result entered through the Result Console Discharge instructions and important events and results David Waterman underwent a left total knee replacement with Adriana Ragsdale MD on 05/05/2022. Pain Management: Please follow the plan below to help control your pain and reduce the amount of opioids or narcotics you require. Follow the schedule/instructions on the discharge medication list or on the prescription bottle. -Take Acetaminophen (Tylenol) as directed. Do not exceed more than 3,000 mg in a 24 hour period. - You were prescribed either Meloxicam (Mobic), Naproxen (Alleve) or Ibuprofen (Motrin). These willhelp with decreasing inflammation. To prevent stomach irritation from these medications you should take over the counter Prilosec daily as well. - Take Dexamethasone as prescribed. This is a steroid that will also help with inflammation. This should be completed by post operative day 2. For Breakthrough or Severe pain- You were prescribed either Oxycodone OR Dilaudid. You may take 1-2 tablets every 4 hours as needed for SEVERE pain that is not controlled despite maximizing the above medications (full dose and frequency). Oxycodone is an opioids also known as narcotics and are highly sedating and addictive. Avoid operating heavy machinary, driving, making financial decisions or drinking alcohol while taking these medication. Inappropriate use of these medications can lead to addiction, therefore is strongly suggested to wean off as soon as your pain improves. Principles of weaning narcotics: You should wean off the prescribed Breakthrough or Severe pain medication first, then wean off the prescribed Moderate pain medication and finally the Tylenol. If you are taking the breakthrough pain medication, you need to reduce this by 1-2 pill per day until you are off. For example: If you have taken 6 tablets on the day of discharge, then the following day you shouldtake 5 tablets, then 4 tablets, then 3 tablets, 2 tablets and 1 tablet, then off. In order to achieve this, you need to increase the time between doses (example: from taking the medication every 4 hours as needed to every 5-6 hours as needed) OR you need to decrease the amount youtake at each dose (example: take 1 tablet instead of 2 tablets at each dose). If you think that your pain is well controlled, you can reduce the total number of tablets per day more quickly. Once you have stopped taking the Breakthrough or Severe pain medication, you should start to reduce the prescribed Moderate pain medication by 1-2 tablets per day until you are off by the using the example above. - If you have any questions regarding how and when to wean off of your pain medications please contact your surgeon's office 's office [phone]. - Any unused opioid medications (e.g., oxycodone, dilaudid, or tramadol (Ultram)) should be returned to the pharmacy or brought to a safe disposal location (log into https://www.[employer].gov/#collection-primer inspector to find a location near you). - You may get mood swings or have trouble sleeping when you stop taking narcotic pain medication. If you have these symptoms, please do not restart the narcotic pain medications for any symptom otherthan pain and please contact the surgeon's office for further advice. As a reminder if you are running low on your narcotic pain medications you should call your surgeon's office for a refill. They can electronically prescribe opioids/narcotic refills but in order to avoid delays over the weekend, please notify the office by Wednesday at 12pm. Ice If your surgeon allows for the use of ice, then you may use ice packs to your operated site for further pain control. Please use for 20 mins at a time (20 mins on and 20 mins off) for 4 to 6 times per day. Always use a barrier such as a cloth in between ice and skin to prevent skin injury from the cold. Constipation Surgery and opioid pain medication coupled with being less active than prior to surgery often causeconstipation. Therefore here are some tips to prevent constipation. - Drink plenty of water to stay hydrated. You may substitute other fluids like prune juice, tea, and broth for some of your water intake. - Eat foods that are high in fiber, like fruits and vegetables. You may take over the counter medications as per bottle instructions or the below recommendations. Docusate (Colace) - 1 tablet twice a day (stool softener), Polyethylene glycol (Miralax) - daily (stool softener) Senokot (Senna) - 1-2 tablets twice a day (gentle laxative) Take these medications until you have regular daily bowel movements, then decrease to once a day. You should hold these medications if you experience loose stool or diarrhea. Nausea - You may have been prescribed Ondansetron (Zofran) for nausea - Take 4 mg every 8 hours as needed. - Please remember that pain medication can cause some nausea, this can be avoided if you take pain medication with food. Anticoagulation Orthopedic surgery increases your risk of developing a blood clot also known as a DVT (deep vein thrombosis). To prevent post operative blood clots you should walk a few times per day and pump your ankles up and down multiple times per day. You were prescribed Aspirin 81 mg twice daily, which should be continued for 4 weeks.. Activity: Please use caution when getting out of bed in the middle of the night or first thing in the morning. Go slow, sit at the edge of bed for a few minutes to prevent dizziness. If you feel dizzy, you should lay back down and drink some water or Gatorade. If you don't feel dizzy rise slowly. It is best to have your support person assist you for the first few times getting up. Make sure you have your walker readily available. You may remain weight bearing as tolerated. You are encouraged to be out of bed for meals. You should elevate your operative leg as much as possible especially after any activity and for an hour at the end of the day. You should elevate your operative leg so that your knee and foot are higher than the level of theirheart, which will decrease swelling below the operative joint. If you are on the Force Del, please continue to do your assigned exercises. If you notice that your swelling after a couple of days, please back off on exercises, rest and elevate. Terry/Melyssa patient's - please continue to wear your compression stocking or continue to use the acewrap for 2 weeks, this will help reduce your swelling. TKA- You may put pillows under the operative leg for elevation and to sleep. Avoid putting a pillow directly behind your knee as this may cause a bend in your knee and cause stiffness. To achieve full extension of your knee elevate the entire leg by placing pillows the long way under your leg.' Dressing/Incision Care: Melyssa patient's with Prineo dressing - please remove the gauze only on post op day 7, keep the mesh type dressing on until you are seen in follow up. You may shower without covering the mesh if there is no leaking area No dressing changes are needed. The dressing is water proof, so showering is ok. No swimming, bathing, or submerging incision in water until follow-up appointment or your incision is completely healed. This dressing should be removed on post operative day 7 and kept open to air. Dr. Ragsdale's patients should removed the dressing on post operative day 7 but should continue to wearthe cynthia wrap or thigh high stocking until follow up, rest, ice and elevate as this decreases the amount of swelling you will have. If the incision continues to ooze or there is some drainage, please use a dry dressing and change it daily. Call your surgeon's office for questions or if the drainage persists. When to call your surgeon's office For fevers greater than 101 degrees, shaking or chills Increasing wound redness or swelling Persistent pain that is not controlled with prescribed pain medications. Foul smell or drainage from the incision Persistent calf pain If your dressing gets wet, soiled, or saturated underneath; or any other concerns. Report to the local Emergency Department or call 911 if you experience any chest pain, shortness ofbreath, difficulty breathing, experience severe headache or confusion, have new or unexplained weakness, cough up large amounts of bright red blood, or have bloody stool or vomit or if you fall and hit your head or any other acute event. Driving You may not drive until you are cleared by your surgeon's office and you have stopped taking all narcotic/opioid pain medication. Follow up: You should have a follow up appointment scheduled with your surgeon. Please call their office to schedule or confirm this appointment. 's office [phone]. For urgent issues during Wednesday through Wednesday call your surgeon's office directly. Evenings, weekends, and holidays please call [phone] and ask to speak with the Orthopedic [id number]. You should also schedule an appointment with your primary care physician (PCP) in 2-4 weeks or as needed. Exam Temperature: 36.5 ??C (97.7 ??F) (05/06/22 0400) Heart Rate: 73 (05/06/22 0400) BP: 121/78 (05/06/22 0400) Respiratory Rate: 16 (05/06/22 0000) SpO2: 100 % (05/06/22 0400) O2 Device: None (Room air) (05/06/22 0400) O2 Flow Rate (L/min): 6 Weight: 90.7 kg (200 lb) (05/05/22 1237) Height: 175.3 cm (5' 9) (05/05/22 1237) BMI (Calculated):29.52 (05/05/22 1237) Discharge Exam Significant Discharge Exam Findings: General: A&O x3, NAD Skin: Warm, dry and intact, No rashes, lesions Chest: LS Bilaterally clear to auscultation Cardiac: Normal S1 and S2. No murmurs. Abdomen: Normal bowel sounds, soft and nontender. Extremity: left knee with mepilexdressing. Able to SLR, +SILT to DP, SP, T, S, S and 5/5 Strength TA, GS, EHL, and FHL, +2 DP pulses and WWP. Ambulating with walker or crutches and was cleared for stairs by PT. Orientation Level: Oriented X3 Cognition: Age appropriate Speech: Appropriate for age Disability Identity and Disability Accommodations Comments Disability Identity None Data/Results Results are shown for the following tests if performed (CBC, Chem 7, Mg, Coag). If the patient did not have any of these tests, no results will be shown here. Lab Results Component Value Date/Time WBC 18.86 (H) 05/06/2022 0640 RBC 4.68 05/06/2022 0640 HGB 14.5 05/06/2022 0640 HCT 42.0 05/06/2022 0640 MCH 31.0 05/06/2022 0640 MCV 89.7 05/06/2022 0640 PLT 227 05/06/2022 0640 RDW 11.6 05/06/2022 0640 Lab Results Component Value Date/Time NA 136 05/06/2022 0640 K 4.2 05/06/2022 0640 CL 100 05/06/2022 0640 CO2 26 05/06/2022 0640 BUN 11 05/06/2022 0640 CRE 1.13 05/06/2022 0640 CA 9.4 05/06/2022 0640 GLU 169 (H) 05/06/2022 0640 I provided an opioid prescription with a notation that it can be filled at a lower amount and is breezy used for post-operative orthopedic surgical pain. I discussed with the patient regarding the quantity of the opioid prescribed and the option to fill the prescription in a lesser quantity. I also discussed the risks associated with the opioid prescribed. Prior to prescribing the opioid, I utilized the [employer] ([employer] Prescription Awareness Tool) to review the patient's previous prescriptions. The script was written with the intention to wean. Patient was instructed on how to appropriately wean off narcotics and disposal of unused/unwanted pills. Areli Walters, MSN, RATE QUOTING OPERATOR-C [facility] Orthopedic Spine Surgery Service P documented in this encounter Discharge Instructions * Discharge Instructions* Areli Walters NP - 05/05/2022 5:38 PM EST Images from the original note were not included. David Morrow You underwent a left total knee replacement with Adriana Ragsdale MD on 05/05/2022. Pain Management: Please follow the plan below to help control your pain and reduce the amount of opioids or narcotics you require. Follow the schedule/instructions on the discharge medication list or on the prescription bottle. -Take Acetaminophen (Tylenol) as directed. Do not exceed more than 3,000 mg in a 24 hour period. - You were prescribed either Meloxicam (Mobic), Naproxen (Alleve) or Ibuprofen (Motrin). These willhelp with decreasing inflammation. To prevent stomach irritation from these medications you should take over the counter Prilosec daily as well. - Take Dexamethasone as prescribed. This is a steroid that will also help with inflammation. This should be completed by post operative day 2. For Breakthrough or Severe pain- You were prescribed either Oxycodone OR Dilaudid. You may take 1-2 tablets every 4 hours as needed for SEVERE pain that is not controlled despite maximizing the above medications (full dose and frequency). Oxycodone is an opioids also known as narcotics and are highly sedating and addictive. Avoid operating heavy machinary, driving, making financial decisions or drinking alcohol while taking these medication. Inappropriate use of these medications can lead to addiction, therefore is strongly suggested to wean off as soon as your pain improves. Principles of weaning narcotics: You should wean off the prescribed Breakthrough or Severe pain medication first, then wean off the prescribed Moderate pain medication and finally the Tylenol. If you are taking the breakthrough pain medication, you need to reduce this by 1-2 pill per day until you are off. For example: If you have taken 6 tablets on the day of discharge, then the following day you shouldtake 5 tablets, then 4 tablets, then 3 tablets, 2 tablets and 1 tablet, then off. In order to achieve this, you need to increase the time between doses (example: from taking the medication every 4 hours as needed to every 5-6 hours as needed) OR you need to decrease the amount youtake at each dose (example: take 1 tablet instead of 2 tablets at each dose). If you think that your pain is well controlled, you can reduce the total number of tablets per day more quickly. Once you have stopped taking the Breakthrough or Severe pain medication, you should start to reduce the prescribed Moderate pain medication by 1-2 tablets per day until you are off by the using the example above. If you have any questions regarding how and when to wean off of your pain medications please contact your surgeon's office 's office [phone]. Any unused opioid medications (e.g., oxycodone, dilaudid, or tramadol (Ultram)) should be returned to the pharmacy or brought to a safe disposal location (log into https://www.[employer].gov/takebackday#collection-primer inspector to find a location near you). You may get mood swings or have trouble sleeping when you stop taking narcotic pain medication. If you have these symptoms, please do not restart the narcotic pain medications for any symptom other than pain and please contact the surgeon's office for further advice. As a reminder if you are running low on your narcotic pain medications you should call your surgeon's office for a refill. They can electronically prescribe opioids/narcotic refills but in order to avoid delays over the weekend, please notify the office by Wednesday at 12pm. Ice If your surgeon allows for the use of ice, then you may use ice packs to your operated site for further pain control. Please use for 20 mins at a time (20 mins on and 20 mins off) for 4 to 6 times per day. Always use a barrier such as a cloth in between ice and skin to prevent skin injury from the cold. Constipation Surgery and opioid pain medication coupled with being less active than prior to surgery often causeconstipation. Therefore here are some tips to prevent constipation. - Drink plenty of water to stay hydrated. You may substitute other fluids like prune juice, tea, and broth for some of your water intake. - Eat foods that are high in fiber, like fruits and vegetables. You may take over the counter medications as per bottle instructions or the below recommendations. Docusate (Colace) - 1 tablet twice a day (stool softener), Polyethylene glycol (Miralax) - daily (stool softener) Senokot (Senna) - 1-2 tablets twice a day (gentle laxative) Take these medications until you have regular daily bowel movements, then decrease to once a day. You should hold these medications if you experience loose stool or diarrhea. Nausea - You may have been prescribed Ondansetron (Zofran) for nausea - Take 4 mg every 8 hours as needed. Please remember that pain medication can cause some nausea, this can be avoided if you take pain medication with food. Anticoagulation Orthopedic surgery increases your risk of developing a blood clot also known as a DVT (deep vein thrombosis). To prevent post operative blood clots you should walk a few times per day and pump your ankles up and down multiple times per day. You were prescribed Aspirin 81 mg twice daily, which should be continued for 4 weeks.. Activity: Please use caution when getting out of bed in the middle of the night or first thing in the morning. Go slow, sit at the edge of bed for a few minutes to prevent dizziness. If you feel dizzy, you should lay back down and drink some water or Gatorade. If you don't feel dizzy rise slowly. It is best to have your support person assist you for the first few times getting up. Make sure you have your walker readily available. You may remain weight bearing as tolerated. You are encouraged to be out of bed for meals. You should elevate your operative leg as much as possible especially after any activity and for an hour at the end of the day. You should elevate your operative leg so that your knee and foot are higher than the level of theirheart, which will decrease swelling below the operative joint. If you are on the Force Del, please continue to do your assigned exercises. If you notice that your swelling after a couple of days, please back off on exercises, rest and elevate. Terry/Melyssa patient's - please continue to wear your compression stocking or continue to use the acewrap for 2 weeks, this will help reduce your swelling. TKA- You may put pillows under the operative leg for elevation and to sleep. Avoid putting a pillow directly behind your knee as this may cause a bend in your knee and cause stiffness. To achieve full extension of your knee elevate the entire leg by placing pillows the long way under your leg.' Dressing/Incision Care: Melyssa patient's with Prineo dressing - please remove the gauze only on post op day 7, keep the mesh type dressing on until you are seen in follow up. You may shower without covering the mesh if there is no leaking area No dressing changes are needed. The dressing is water proof, so showering is ok. No swimming, bathing, or submerging incision in water until follow-up appointment or your incision is completely healed. This dressing should be removed on post operative day 7 and kept open to air. Dr. Ragsdale's patients should removed the dressing on post operative day 7 but should continue to wearthe cynthia wrap or thigh high stocking until follow up, rest, ice and elevate as this decreases the amount of swelling you will have. If the incision continues to ooze or there is some drainage, please use a dry dressing and change it daily. Call your surgeon's office for questions or if the drainage persists. When to call your surgeon's office For fevers greater than 101 degrees, shaking or chills Increasing wound redness or swelling Persistent pain that is not controlled with prescribed pain medications. Foul smell or drainage from the incision Persistent calf pain If your dressing gets wet, soiled, or saturated underneath; or any other concerns. Report to the local Emergency Department or call 911 if you experience any chest pain, shortness ofbreath, difficulty breathing, experience severe headache or confusion, have new or unexplained weakness, cough up large amounts of bright red blood, or have bloody stool or vomit or if you fall and hit your head or any other acute event. Driving You may not drive until you are cleared by your surgeon's office and you have stopped taking all narcotic/opioid pain medication. Follow up: You should have a follow up appointment scheduled with your surgeon. Please call their office to schedule or confirm this appointment. 's office [phone]. For urgent issues during Wednesday through Wednesday call your surgeon's office directly. Evenings, weekends, and holidays please call [phone] and ask to speak with the Orthopedic [id number]. You should also schedule an appointment with your primary care physician (PCP) in 2-4 weeks or as needed. documented in this encounter Medications at Time of Discharge Medication Sig Dispensed Refills Start Date End Date aspirin 81 MG EC tablet Take 1 tablet (81 mg total) by mouth 2 (two) times a day for 28 days. 56 tablet 05/06/2022 cetirizine (ZYRTEC) 10 MG tablet Take 10 mg by mouth daily. omeprazole (PRILOSEC) 10 MG capsule Take 10 mg by mouth daily. sertraline (ZOLOFT) 50 MG tablet Take 75 mg by mouth daily. 1.5 tablets dexAMETHasone (DECADRON) 2 MG tablet Take 5 tablets (10 mg total) by mouth daily for 1 dose. 5 tablet 05/07/2022 05/08/2022 omeprazole (PRILOSEC) 20 MG capsule Take 1 capsule (20 mg total) by mouth daily before breakfast for 14 days. 14 capsule 05/07/2022 05/21/2022 acetaminophen (TYLENOL) 325 mg tablet Take 3 tablets (975 mg total) by mouth every 8 (eight) hours. 90 tablet 05/06/2022 05/18/2022 docusate sodium (COLACE) 100 MG capsule Take 1 capsule (100 mg total) by mouth 2 (two) times a day. 30 capsule 05/06/2022 06/15/2022 naproxen (NAPROSYN) 500 MG tablet Take 1 tablet (500 mg total) by mouth 2 (two) times a day with meals for 14 days. 28 tablet 05/06/2022 05/18/2022 ondansetron (ZOFRAN) 4 MG tablet Take 1 tablet (4 mg total) by mouth every 6 (six) hours as needed. 10 tablet 05/06/2022 05/18/2022 oxyCODONE 5 MG immediate release tablet Take 1-2 tablets (5-10 mg total) by mouth every 4 (four) hours as needed. Partial fill ok 40 tablet 05/06/2022 05/18/2022 senna (SENOKOT) 8.6 mg tablet Take 2 tablets by mouth 2 (two) times a day. 30 tablet 05/06/2022 06/15/2022 documented as of this encounter Progress Notes Only the most recent of 5 notes is shown. * Mary Blake OT - 05/06/2022 8:30 AM EST Occupational Therapy: Missed Tx Note OT consult received and pts PMHx/chart reviewed. Attempted to see pt this am for initial OT evaluation. At time of attempt, pt received in PACU, pain well managed on current regimen. Pt declined needfor OT services at this time given pts mother is also an OT and will be assisting pt post operatively. Will plan to d/c OT consult at this time. Mary Blake OT [id number] documented in this encounter H&P Notes * Kenny Chiu MD - 05/05/2022 12:43 PM EST [facility] ORTHOPED[facility] ARTHROPLASTY SERVICE Date of Surgery: 05/05/22 Patient: David Morrow : 1990 PRE-OP SURGERY HISTORY AND PHYSCIAL David Morrow is a 32 y.o. male who is scheduled for: Procedure(s): ROBOTIC ARTHROPLASTY TOTAL KNEE WITH LATERL RELEASE Patient Active Problem List Diagnosis Date Noted ??? Anxiety ??? Gastroesophageal reflux disease ??? Asthma ??? Depressive disorder REVIEW OF PAST MEDICAL HISTORY: I have reviewed and updated the [facility] problem list and past medical history. Past medical history that has a specific impact on the scheduled procedure is indicated below. Past Medical History: Diagnosis Date ??? Anxiety ??? 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 Depressive disorder ??? Gastroesophageal reflux disease controlled with omeprazole Past Surgical History: Procedure Laterality Date ??? ANTERIOR CRUCIATE LIGAMENT REPAIR Left ??? COLONOSCOPY ??? KNEE ARTHROSCOPY Bilateral multiple on each knee ??? MENISCECTOMY Left ??? UPPER GASTROINTESTINAL ENDOSCOPY Family History Problem Relation Age of Onset ??? Anesthesia problems Neg Hx ??? Malig Hyperthermia Neg Hx ??? Pseudochol deficiency Neg Hx Social History Tobacco Use Smoking Status Never Smokeless Tobacco Never REVIEW OF MEDICATIONS AND ALLERGIES: I have reviewed and updated the [facility] medication and allergy list. Allergies Allergen Reactions ??? Shellfish Containing Products Anaphylaxis ??? Codeine Nausea and/or Vomiting Allergy in childhood, received in adulthood with mild nausea ??? Hazelnut GI Upset, Hives and Itching Current Facility-Administered Medications Medication Dose Route Frequency ??? acetaminophen (TYLENOL) tablet 975 mg 975 mg Oral Once Or ??? acetaminophen (TYLENOL) 650 mg/20.3 mL oral solution 975 mg 975 mg Oral Once ??? famotidine (PF) (PEPCID) injection 20 mg 20 mg Intravenous Once ??? gabapentin (NEURONTIN) capsule 300 mg 300 mg Oral Once ??? lactated Ringers infusion 20 mL/hr Intravenous Continuous ??? meloxicam (MOBIC) tablet 15 mg 15 mg Oral Once ??? xtgjeiunsol-irliqhbybof-hnnnlzzax-ketorolac 2.46-0.005- 0.0008-0.3mg/mL PERIARTICULAR syringe 100 mL Intra-articular Once ??? sodium chloride (NS) 0.9 % syringe flush 3 mL 3 mL Intravenous PRN ??? sodium chloride (NS) 0.9 % syringe flush 3 mL 3 mL Intravenous PRN ??? sodium chloride 0.9% infusion 5-10 mL/hr Intravenous Continuous PRN REVIEW OF SYSTEMS Pertinent review of systems was performed and are noncontributory. REVIEW OF RELEVANT LABORATORY AND DIAGNOSTIC TEST RESULTS: I have reviewed all relevant test results. Test results that have a specific impact on the scheduled procedure are discussed below. Imaging findings: Valgus knee, post traumatic OA PERTINENT PHYSICAL EXAM: There were no vitals filed for this visit. Estimated body mass index is 29.53 kg/m?? as calculated from the following: Height as of this encounter: 175.3 cm (5' 9). Weight as of this encounter: 90.7 kg (200 lb). General: No acute distress and A&Ox3. Pulmonary: No respiratory distress or accessory muscle use. Speaking in full sentences. Cardiac: RRR by palp. Skin: Intact, warm, dry, and normal color. Neuro: Motor: normal Sensation: Intact to light touch in the distal operative extremity Peripheral Vascular: normal ROM: ROM limited by pain Assessment and Plan: Left knee arthritis. Planned procedure discussed with patient, including risks, benefits, alternatives, and expected recovery plan. Having failed appropriate conservative measures we will proceed with Procedure(s): ROBOTIC ARTHROPLASTY TOTAL KNEE WITH LATERL RELEASE. Written consent obtained. Surgical site markedas indicated. Kenny Chiu MD documented in this encounter Procedure Notes * Adriana Ragsdale MD - 05/05/2022 2:15 PM EST Full Operative Note Patient Name: David Morrow Date of Surgery: 05/05/2022 Pre-Op Diagnosis Codes: * Primary osteoarthritis of left knee [M17.12] Post-Op Diagnosis Codes: * Primary osteoarthritis of left knee [M17.12] Procedure(s): ROBOTIC ARTHROPLASTY TOTAL KNEE LEFT WITH LATERAL RELEASE AND ENDO BUTTON REMOVAL - image based CT scan Surgeon(s): MD Adriana Huang MD No resident was available to help Physician Candle Maker: Mary Nava PA-C Recycling Operator: Kennedy Fay MD [address] [employer] REPORTER: Nesha Chaudhry CRNA; Juana Dubon CRNA; Iva Phillip CRNA Anesthesia Type: Spinal ASA Code: II Estimated Blood Loss: 150cc TOURNIQUET: Not applied COMPLICATIONS: None CONDITION: Stable to PACU IMPLANTS USED: [place] [employer], 4 CR femur, 5 tibia, 9CS polyethylene, unresurfaced patella, cementless. INDICATIONS FOR PROCEDURE: The patient presented to clinic with left knee primary degenerative joint disease that failed nonoperative treatment. The patient was a candidate for left total knee arthroplasty, and consented to a TKA using a LELO robot. The risks, benefits, and alternatives of procedure were discussed with the patient and the patient understood the risks could be but were not limited to bleeding, infection, blood clots, damage to nerve, artery, and vessels, limb length discrepancy, fracture, dislocation, loosening, implant failure, and even . The patient elected to undergo the procedure. DETAILS OF THE PROCEDURE: The patient was identified in the preoperative holding area and the correct extremity was marked. The patient was taken back to the operating room, where SPINAL anesthesia was induced. The patient was placed supine on the operating table and all bony prominences were padded. The leg was prepped with alcohol and DuraPrep. Once the prep was allowed to dry, the usual standard drapings were applied. After a time-out was performed, a midline incision was made to enter the knee, followed by a medialparapatellar approach. The medial release was performed and the knee was exposed. A portion of the patellar fat pad was removed, and the ACL was removed. The menisci were removed. The leg was placed in extension, and an anterior synovectomy was performed. The tibial and femoral pins were inserted. The femoral and tibial checkpoints were inserted. The leg was then registered for the LELO. The IT band was cut to open up the lateral side. The popliteal was also released. Once registration was complete, the distal femoral and posterior chamfer cuts were made. The saw blade was switched and the anterior femoral cut, anterior chamfers, and posterior cut were made, followed by the tibia cut. The posterior part of the knee was opened up with a laminar senior marketing coordinator. Posterior osteophytes were removed as well as any excess soft tissue. Pericapsular injection was administered throughout the knee, including the posterior portion of the knee. Extra distal femur cuts were made to bring the leg to full extension. The tibia was exposed and the rotation was marked. This was checked by the LELO, and the size 5 tibia was pinned and punched accordingly. The size 4 femoral trial and size 5 tibia trial were placed using a size 9CS polyethylene. The lug holes were drilled for the femur. These trial implants resulted in full extension without hyperextension and stability in all ranges of motion. A full lateral release was performed on the patella. Thepatella was not cut freehand. The patella tracked relatively well. All trial components removed and the wound was copiously irrigated with saline. The pins were removed. New drapes were applied, as well as new gloves. Cement was not used to implant the final components. The wound was copiously irrigated with dilute Betadine followed by saline. 1g of ancef powder was placed into the wound. Stratafix was used to close the capsule, supplemented with #1 Vicryl. 2-0 Vicryl was used subcutaneously, followed by running 3-0 Monocryl subcuticularly. Dermabond was applied to the wound, followed by an occlusive silver impregnated dressing and cynthia wraps. I performed all rosas portions of the procedure. POSTOPERATIVE PROTOCOL Postoperatively, the patient will be full weight bearing, precautions: none, and DVT prophylaxis: ASA 81 BID. documented in this encounter Consult Notes * Isis Sarmiento, PT - 05/05/2022 7:54 PM EST Images from the original note were not included. Physical Therapy Physical Therapy Inpatient Consult Note: General Ortho Patient Name: David Morrow Date of : 1990 Physical Therapy Discharge Recommendations: PT Discharge Recommendation: Home PT PT Discharge Comment: Recommend pt DC home with PT services when medically cleared Relevant History: Date of Admission:05/05/2022 Precautions/Activity Restrictions: Infection Control: standard Weight Bearing: WBAT L LE Activity and Positioning: Activity as tolerated Safety: Falls risk History of Present Illness: David Morrow is a 32 y.o. male who has a history of left knee osteoarthritis, which has failed conservative medical management, therefore was admitted to the [facility] and underwent an elective left total knee replacement on 05/05/2022 with dAriana Ragsdale MD. PMH: Past Medical History: Diagnosis Date ??? Anxiety ??? 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 Depressive disorder ??? Gastroesophageal reflux disease controlled with omeprazole Past Surgical History: Procedure Laterality Date ??? ANTERIOR CRUCIATE LIGAMENT REPAIR Left ??? COLONOSCOPY ??? KNEE ARTHROSCOPY Bilateral multiple on each knee ??? MENISCECTOMY Left ??? UPPER GASTROINTESTINAL ENDOSCOPY Most Recent Labs: Lab Results Component Value Date WBC 8.35 04/10/2022 RBC 5.09 04/10/2022 HGB 15.6 04/10/2022 HCT 46.0 04/10/2022 PLT 237 04/10/2022 MCV 90.4 04/10/2022 MCH 30.6 04/10/2022 MCHC 33.9 04/10/2022 RDW 11.3 (L) 04/10/2022 MVP 10.7 04/10/2022 NRBCA 0.00 04/10/2022 Social History Social Context Lives With: Self/alone Receives Help From: No one Provides Care For: Who is Available Upon Discharge: Parent(s) Environmental Context Type of Home: House Home Layout: Two level, Able to live on main level with bedroom/bathroom (Pt [place] Mother, cottage style house) Stairs to Enter Home: 0 Railing to Enter Home: Stairs Inside Home: 1 FOS to second floor but bed and bath on first level Railing Inside Home: Bathroom Accessibility: Accessible Bathroom Shower/Tub: Tub/shower unit Prior Level of Function Hearing Aid: Baseline Vision: Wears glasses all the time Which is your dominant hand?: Level of [place]: Independent with ADL, IADL, Mobility 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 [employer], on break rightnow but will be taking itmeoff Transport Used: Drives Leisure Activity: Activity Level: Daily Routine: Equipment/Devices Owned or Used by Patient Pre-Admission/Currently: Equipment/Devices Home Equipment: Walker, Crutches, Cane Fall History: Fall History History of Falling/Loss of Balance Within Last 3 Months: History of falling How Many Times Patient Has Fallen: 0 Examination Findings Mental Status: Arousal/Attention/Communication/Cognition: Intact Arousal and Affect: Alert Attention: Intact Ability to Follow Commands: Follows complex commands Communication: Intact Cognition: Intact Orientation Level: Oriented X3 Judgment: Intact Pain: Pain Assessment: 0-10 Pain Score: 2 Patient's Stated Pain Goal: No pain Pain Type: Surgical pain Pain Location: Knee Pain Orientation: Left Pain Descriptors: Aching Integumentary System: See RN UE/LE ROM and Strength Assessment: Strength/PROM/AROM Overall PROM: Exception LLE Overall AROM: Exception LLE Overall Strength RUE : Able to perform ADL tasks Overall Strength LUE: Able to perform ADL tasks Overall Strength RLE: Able to perform ADL tasks Overall Strength LLE: Able to perform ADL tasks, Deficits due to precautions, Deficits due to pain Sensation Testing: Sensation Tests Sensation Tests: Light touch Light Touch RLE Light Touch: Intact LLE Light Touch: Intact Other: Balance Balance Clinical Observation: static sitting supervision, static/dynamic standing CS with RW Vital Signs: Please see flowsheet for details. Functional Mobility Supine to Sit: Modified independent Supine to Sit Device Used: Head of bed elevated Clinical Observation: HOB slightly elevated. Pt able to I manage L LE Sit to Supine: Modified independent Sit to Supine Device Used: Head of bed elevated Clinical Observation: HOB slightly elevated. Pt able to I manage L LE Sit to Stand: Close supervision Sit to Stand Device Used: Walker - rolling Clinical Observation: VC/TC for handplacement on bed/RW Stand to Sit: Close supervision Clinical Observation: VC/TC for handplacement on bed/RW Ambulation: Close supervision Ambulation Distance (Comments): 60ft x2 Ambulation Clinical Observation: VC for in initial sequence and walker management Assessment and Plan Impairments: ?? Decreased L knee ROM/strength, decreased functional mobility Functional Limitations: check only those that apply [x] Impaired supine to sit/sit to supine [x] Impaired sit to stand [x] Impaired bed to chair transfer [x] Impaired ambulation [x] Impaired ability to walk up/down stairs [] Patient/Family Goal(s) Pt wants to go home Rehab Potential/Prognosis: Recommend pt DC home with PT services, pt cleared from acute PT. Pt mother who is OT will be home to assist pt with recovery. Impression: Pt is a 32 y.o. male who has a hx of L knee OA, which has failed conservative medical management, therefore was admitted to the [facility] and underwent an elective L TKR on 05/05/2022 with Adriana Ragsdale MD. Pt was seen by PT post-op day 0 in PACU. Pt is recovering in a family home in [place] which has no [facility] and pt is able to live on main floor with bed/full bath. Pt's Mother who is an OT will be assisting pt with recovery. Pt denied any lightheadedness, dizziness, or nausea throughout session, pt demonstrated orthostatic BP after ambulating but stabilized after sitting for 2 minutes. Pt passe orthostatics from RN. Pt able to I manage L LE with bedmobility, HOB slightly elevated. VC/TC needed or hand placement on RW and bed with sit <> stand transfers, CS with RW needed. Pt able to ambulate a total of 120 ft with RW and CS, pt reported slight clicking sensation wit few steps but decreased and reported no pain. VC for initial step sequencing and walker management. Pt focused on achieving heel/toe gait pattern. Pt left sitting in bed with tray table/call light in reach, B venodyne boots on, and cryocuff on. Recommend pt DC home with PT services when medically cleared. Pt mother who is OT will be home to assist pt with recovery. DC form acute PT. Recommendations: Discharge, Activity, Safety, Other Consults PT Discharge Recommendation: Home PT PT Discharge Comment: Recommend pt DC home with PT services when medically cleared Safety/Fall: Falls risk Activity While in Hospital: Activity as tolerated RW with CS Frequency of Visits: DC from acute PT PT Plan of Care Notes from 04/28/22 through 05/05/22 No notes of this type exist for this encounter. Therapeutic Exercise: 10 repetitions each on operated lower extremity [x] Ankle Pumps [x] Gluteal Sets [x] Quadriceps sets [] Heel Slides ([] Active [] Assisted) [] Straight Leg Raises ([] Active [] Assisted) [] Short Arc Knee Extensions ([] Active [] Assisted) [] Hip Abduction ([] Active [] Assisted) [] Hip Internal Rotation ([] Active [] Assisted) [] Hip External Rotation ([] Active [] Assisted) [] Sitting Knee Flexion ([] Active [] Assisted) [] Long Arc Knee Extensions ([] Active [] Assisted) PT Evaluation Complexity: This evaluation qualifies as a low complexity PT evaluation due to the case having no personal factors of comorbidities that impact the plan of care, only 1-2 elements regarding body structures and functions, activity limitations, and/or participation restrictions that need to be addressed, and clinical decision making was achieved wtih low complexity. Signature of Providing Clinician: Isis Sarmiento, [place] [id number] Date:05/05/22 Start Time: 1909 End Time: 1937 *The patient???s progress will be assessed at each session. The frequency may be increased or tapered as treatment progresses based on the therapist???s judgment of factors including but not limited to; co morbidities, tissue healing, patient/caregiver independent self management, ability to participate in/receive therapy due to medical stability and/or competing care priorities. documented in this encounter Miscellaneous Notes * Plan of Care - Santiago Mckenna RN - 05/06/2022 9:11 AM EST Problem: Discharge Readiness - Perioperative Care/Procedural Sedation Goal: Knowledge of medication management prior to discharge from perioperative/procedural phase of care Outcome: Completed Goal: Knowledge of need for follow-up care prior to discharge from postoperative/procedural phase of care Outcome: Completed Problem: Pain - Adult/Pediatric Goal: Demonstrates or reports acceptable level of pain during hospitalization Outcome: Completed Problem: Fall Risk - Adult Goal: Absence of falls during hospitalization Outcome: Completed Problem: Infection, Risk or Actual - Perioperative Care/Procedural Sedation Goal: Minimize risk of infection during perioperative/procedural phase of care Outcome: Completed Pain: Pain is within a manageable level. Pt understands recommended pain medication regimen for home. Follow Up: Pt is aware of needed follow up appt with surgeon's office, what signs or symptoms to call sooner than that, and when to seek urgent medical services. Medication Management: Pt understanding all prescribed & OTC medication recommendations, including timing of next doses. Infection Prevention: Incision kept covered, dressing is clean, dry, and intact. Pt expressed understanding of infection prevention measures regarding incision and signs/symptoms of infection needingmedical attention. Safety: Pt educated on fall prevention, including careful and slow position changes to prevent syncope. Falls: No falls in PACU * Hospital Course - Dhara Latham NP - 05/05/2022 5:39 PM EST David Morrow is a 32 y.o. male underwent the above procedure by Adriana Ragsdale MD at [facility] on 05/05[facility]2022. The patient tolerated the procedure well and was transferred to the post anesthesia care unit and later to the surgical gastelum for ongoing postoperative management by the Orthopedic Surgery Service in stable condition. Please refer to the operative reportfor full procedural details. The remaining hospital course is listed below by systems: Neuro: A multimodal pain regimen was started immediately post op. The patient was started on Scheduled Tylenol, Tramadol as needed for moderate pain, and Dilaudid as needed for severe pain. Toradol IV was given for 24 hours PRN and then discontinued., Pt was given Decadron 10 mg po on POD#1 and #2., and NSAIDs were started on POD#1 and continued for 2 weeks. Neurontin was prescribed 100mg TID for 28 days for TKAs only Discharge pain medications were reviewed and patient was instructedon how to wean off narcotics. ID: Vancomycin IV and Ancef IV were administered perioperatively for Infectious Disease prophylaxis. There were no obvious signs or symptoms of infection at the time of discharge. Pulm: Post operatively oxygen was weaned and active incentive spirometry was encouraged. The patient had no SOB or Hypoxia. CVS: Post operatively patient was given IV fluids for hydration. Vital signs were routinely monitored. Patient was resumed on their home cardiac meds as BP tolerated. . Patient had no chest pain or shortness of breath. Heme: Postoperative hematocrits were followed and were stable. The patient was prescribed the following for DVT prophylaxis: Aspirin 81 mg twice daily, which should be continued for 4 weeks. F/E/N: IV fluids were continued until the patient had adequate PO intake. Patients diet was advanced as tolerated. Electrolytes were monitored and were stable. GI: Prior to discharge patient had an adequate appetite. Patient was started on stool softeners andgentle laxatives post op to combat narcotic induced constipation.Due to use of NSAIDs, the patient started on a PPI for 2 weeks. and Patient was prescribed Zofran for nausea. : No solares was placed. Patient was voiding independently at time of discharge. MSK: Patient was seen and evaluated by physical therapy for assistance with gait training, strengthening and endurance. Patient was kept weight bearing as tolerated and placed on fall precautions. Physical therapy reviewed all PT instructions and range of motion restrictions. documented in this encounter Plan of Treatment Scheduled Referrals Name Type Priority Associated Diagnoses Order Schedule Ambulatory referral to External Physical Therapy Outpatient Referral Routine Ordered: 05/06/2022 documented as of this encounter Procedures Procedure Name Priority Date/Time Associated Diagnosis Comments CBC Routine 05/06/2022 6:40 AM EST BASIC METABOLIC PANEL Routine 05/06/2022 6:40 AM EST XR KNEE 1-2 VIEWS (LEFT) Routine 05/05/2022 6:06 PM EST [facility] SARS-COV-2 COVID-19 AMPLIFIED PROBE TQ HIGH THROUGHPUT TECH Routine 05/05/2022 2:05 PM EST ND TOTAL KNEE ARTHROPLASTY 05/05/2022 1:08 PM EST Primary osteoarthritis of left knee Special Needs : Miesha Triathlon knee (CR femur, CS insert, universal tibial baseplate, cemented and cementless available, patella resurfacing available) + Lelo robot, Palacos MV cement / antibiotic cement for high-risk patients*. Phone PPE needed. COVID-19 ANTIGEN (FLOWFLEX), NASAL SWAB Routine 05/05/2022 12:46 PM EST documented in this encounter Results * (ABNORMAL) CBC (05/06/2022 6:40 AM EST) WBC 18.86(H) 4.00 - 10.90 K/uL [facility] RBC 4.68 4.50 - 6.40 M/uL [facility] HGB 14.5 13.5 - 18.0 g/dL [facility] HCT 42.0 40.0 - 54.0 % [facility] PLT 227 150 - 450 K/uL [facility] MCV 89.7 80.0 - 100.0 fL [facility] MCH 31.0 27.0 - 32.0 pg [facility] MCHC 34.5 32.0 - 36.0 g/dL [facility] RDW 11.6 11.5 - 14.5 % [facility] MPV 10.8 8.4 - 12.0 fl [facility] NRBC 0.00 0.00 /100 WBCs [facility] ABSOLUTE NRBC 0.00 0.00 K/uL [facility] Blood 05/06/2022 6:40 AM EST 05/06/2022 7:20 AM EST Kenny Chiu MD LAB BLOOD O ALEX Performing Organization Address [facility] [place] [address] * (ABNORMAL) Basic metabolic panel (05/06/2022 6:40 AM EST) SODIUM 136 136 - 145 mmol/L [facility] CHLORIDE 100 98 - 107 mmol/L [facility] POTASSIUM 4.2 3.4 - 5.0 mmol/L [facility] Comment:HEMOLYSIS_INDEX_OF_9 3,INTERPRET_WITH_CAUTION CO2 26 22 - 31 mmol/L [facility] BUN 11 6 - 23 mg/dL [facility] CREATININE 1.13 0.50 - 1.20 mg/dL [facility] GLUCOSE 169(H) 70 - 115 mg/dL [facility] CALCIUM 9.4 8.6 - 10.7 mg/dL [facility] EGFR 89 >60 mL/min/1.7 3m2 [facility] Comment:Estimated glomerular filtration rate calculated using the CKD-EPI refit equation. ANION GAP 10 3 - 15 mmol/L [facility] Blood 05/06/2022 6:40 AM EST 05/06/2022 7:20 AM EST Kenny Chiu MD LAB BLOOD O ALEX Performing Organization Address [facility] [place] [address] * XR KNEE 1-2 VIEWS (LEFT) (05/05/2022 6:06 PM EST) Anatomical Region Laterality Modality Knee Left Computed Radiogr aphy 05/06/2022 5:22 AM EST Impressions 05/06/2022 5:23 AM EST FINDINGS/IMPRESSION: Status post interval left total knee arthroplasty without fracture. Component alignment is within expected limits. Narrative 05/06/2022 5:23 AM EST XR KNEE 1-2 VIEWS (LEFT) COMPARISON: XR KNEE 4 OR MORE VIEWS (BILATERAL) Procedure Note Noy Jara MD - 05/06/2022 XR KNEE 1-2 VIEWS (LEFT) COMPARISON: XR KNEE 4 OR MORE VIEWS (BILATERAL) IMPRESSION: FINDINGS/IMPRESSION: Status post interval left total knee arthroplastywithout fracture. Component alignment is within expected limits. Kenny Chiu MD IMG XR LOWE R EXTREMITY * COVID-19 RT-PCR (05/05/2022 2:05 PM EST) SARS-CoV 2 (COVID-19) PCR SARS-CoV-2 not detected SARS-CoV-2 not detected [facility] Source AN SWAB [facility] 05/05/2022 2:05 PM EST 05/05/2022 2:34 PM EST Adriana Ragsdale MD BODY FLUIDS AND STOO LS ORDERABLES Performing Organization Address [facility] [place] [address] * COVID-19 Antigen (Flowflex), Nasal Swab (05/05/2022 12:46 PM EST) SARS-CoV-2 (COVID-19) antigen NEGATIVE - Internal QCs acceptable NEGATIVE - Internal QCs acceptable [facility] Adriana Ragsdale MD POINT OF CARE TEST O RDERABLES Performing Organization Address [facility] Co de Phone Number [address] [address] documented in this encounter Visit Diagnoses Diagnosis S/P TKR (total knee replacement) using cement, left- Primary S/P TKR (total knee replacement) using cement, left documented in this encounter Admitting Diagnoses Diagnosis S/P TKR (total knee replacement) using cement, left documented in this encounter Administered Medications Inactive Administered Medications - up to 3 most recent administrations Medication Order MAR Action Action Date Dose Rate Site acetaminophen (TYLENOL) tablet 975 mg 975 mg, Oral, Once, On Wed05/05/22 at 1330, For 1 dose, Pre-op (day of) Given 05/05/2022 12:49 PM EST 975 mg acetaminophen (TYLENOL) tablet 975 mg 975 mg, Oral, Every 8 hours scheduled, First dose on Wed05/05/22 at 2200 Given 05/06/2022 6:23 AM EST 975 mg Given 05/05/2022 11:56 PM EST 975 mg aspirin EC tablet 81 mg 81 mg, Oral, 2 times daily, First dose on Wed05/05/22 at 2100, Administer with water, food, or milk to decrease GI upset. Given 05/06/2022 6:24 AM EST 81 mg Given 05/05/2022 11:57 PM EST 81 mg ceFAZolin (ANCEF) 2 gram/50 mL in dextrose IVPB premix 2 g, Intravenous, Administer over 30 Minutes, at 100 mL/hr, Every 8 hours, First dose on Wed05/05/22 at 2200, For 2 doses, Recovery & Post-op, Indication: Prophylaxis, at risk for:, Infection Source: Surgical Prophylaxis New Bag 05/06/2022 6:26 AM EST 2 g 100 mL/hr New Bag 05/05/2022 11:56 PM EST 2 g 100 mL/hr cetirizine (ZyrTEC) tablet 10 mg 10 mg, Oral, Every morning, First dose on Wed05/06/22 at 0600 Given 05/06/2022 8:21 AM EST 10 mg dexAMETHasone (DECADRON) tablet 10 mg 10 mg, Oral, Daily, First dose on Wed05/06/22 at 0900, For 2 doses, May administer with food to reduce GI upset. Given 05/06/2022 6:25 AM EST 10 mg docusate sodium (COLACE) capsule 100 mg 100 mg, Oral, 2 times daily, First dose on Wed05/05/22 at 2100, Recovery & Post-op Given 05/06/2022 6:24 AM EST 100 mg Given 05/05/2022 11:57 PM EST 100 mg famotidine (PF) (PEPCID) injection 20 mg 20 mg, Intravenous, Once, On Wed05/05/22 at 1330, For 1 dose, Pre-op (day of) Given 05/05/2022 12:49 PM EST 20 mg gabapentin (NEURONTIN) capsule 100 mg 100 mg, Oral, Every 8 hours scheduled, First dose on Wed05/05/22 at 2200, For 48 hours Given 05/06/2022 6:25 AM EST 1 00 mg Given 05/05/2022 11:57 PM EST 100 mg gabapentin (NEURONTIN) capsule 300 mg 300 mg, Oral, Once, On Wed05/05/22 at 1330, For 1 dose, Pre-op (day of) Given 05/05/2022 12:49 PM EST 300 mg lactated Ringers infusion 20 mL/hr, Intravenous, Continuous, Starting on Wed05/05/22 at 1315, Pre-op (day of) Restarted 05/05/2022 5:03 PM EST New Bag 05/05/2022 12:49 PM EST 20 mL/hr 20 mL/hr lactated ringers IV Bolus 1,000 mL 1,000 mL, Intravenous, Once, On Wed05/05/22 at 1715, For 1 dose New Bag 05/05/2022 5:21 PM EST 1,000 mL 1000 mL/hr meloxicam (MOBIC) tablet 15 mg 15 mg, Oral, Once, On Wed05/05/22 at 1330, For 1 dose, Pre-op (day of), May administer with food or milk to reduce GI upset. Given 05/05/2022 12:49 PM EST 15 mg naproxen (NAPROSYN) tablet 500 mg 500 mg, Oral, 2 times daily with meals, First dose on Wed05/06/22 at 0800, Administer with food, milk, or antacids to decrease GI adverse effects. Given 05/06/2022 6:24 AM EST 500 mg omeprazole (PriLOSEC) capsule 20 mg 20 mg, Oral, Daily before breakfast, First dose on Wed05/06/22 at 0730, For administration while patient is taking naproxen. Do NOT crush or chew. Given 05/06/2022 6:24 AM EST 20 mg ondansetron (PF) (ZOFRAN) injection 2 mg 2 mg, Intravenous, Every 4 hours PRN, nausea, vomiting, Starting on Wed05/05/22 at 1857, If unable to tolerate PO. ondansetron (ZOFRAN) tablet 4 mg 4 mg, Oral, Every 6 hours PRN, nausea, vomiting, Starting on Wed05/05/22 at 1857 oxyCODONE tablet 5-10 mg 5-10 mg, Oral, Every 4 hours PRN, severe pain or 7-10 (on a general 0-10 scale), Starting on Wed05/05/22 at 1857 Given 05/05/2022 11:57 PM EST 10 mg senna (SENOKOT) tablet 2 tablet 2 tablet, Oral, Nightly, First dose on Wed05/05/22 at 2100, Recovery & Post-op Given 05/05/2022 11:57 PM EST 2 tablets senna (SENOKOT) tablet 2 tablet 2 tablet, Oral, 2 times daily, First dose (after last modification) on Wed05/06/22 at 0900, Recovery & Post-op sertraline (ZOLOFT) tablet 75 mg 75 mg, Oral, Daily, First dose on Wed05/06/22 at 0900 Given 05/06/2022 8:21 AM EST 75 mg sodium chloride 0.9% infusion 75 mL/hr, Intravenous, Continuous, Starting on Wed05/05/22 at 1715, Recovery & Post-op, Discontinue IVF when PO intake is greater than 300 mL New Bag 05/05/2022 5:29 PM EST 75 mL/hr 75 mL/hr traMADoL (ULTRAM) tablet 100 mg 100 mg, Oral, Every 8 hours PRN, moderate pain or 4-6 (on a general 0-10 scale), Starting on Wed05/05/22 at 1627, May be co-administered with ketorolac. Given 05/05/2022 6:09 PM EST 100 mg documented in this encounter Active and Recently Administered Medications Times are shown in EST. Scheduled Medication Order 05/04/2022 05/05/2022 05/06/2022 acetaminophen (TYLENOL) tablet 975 mg (COMPLETED)(Linked Group 1) 975 mg, Oral, Once, On Wed05/05/22 at 1330, For 1 dose, Pre-op (day of) 1249 (Given - Provider: Gorge Rutherford RN) acetaminophen (TYLENOL) tablet 975 mg 975 mg, Oral, Every 8 hours scheduled, First dose on Wed05/05/22 at 2200 2356 (Given - Provider: Emily Zambrano RN) 06 (Given - Provider: Emily Zambrano RN) aspirin EC tablet 81 mg 81 mg, Oral, 2 times daily, First dose on Wed05/05/22 at 2100, Administer with water, food, or milk to decrease GI upset. 2356 (Given - Provider: Emily Zambrano RN) 0624 (Given - Provider: Emily Zambrano RN) ceFAZolin (ANCEF) 2 gram/50 mL in dextrose IVPB premix (COMPLETED) 2 g, Intravenous, Administer over 30 Minutes, at 100 mL/hr, Every 8 hours, First dose on Wed05/05/22 at 2200, For 2 doses, Recovery & Post-op, Indication: Prophylaxis, at risk for:, Infection Source: Surgical Prophylaxis 2355 (New Bag - Provider: Emily Zambrano RN) 625 (New Bag - Provider: Emily Zambrano RN) cetirizine (ZyrTEC) tablet 10 mg 10 mg, Oral, Every morning, First dose on Wed05/06/22 at 0600 0821 (Given - Provid er: Santiago Mckenna RN) dexAMETHasone (DECADRON) tablet 10 mg 10 mg, Oral, Daily, First dose on Wed05/06/22 at 0900, For 2 doses, May administer with food to reduce GI upset. 0625 (Given - Provid er: Emily Zambrano RN) docusate sodium (COLACE) capsule 100 mg(Linked Group 2) 100 mg, Oral, 2 times daily, First dose on Wed05/05/22 at 2100, Recovery & Post-op 235 (Given - Provider: Emily Zambrano RN) 06 (Given - Provider: Emily Zambrano RN) famotidine (PF) (PEPCID) injection 20 mg (COMPLETED) 20 mg, Intravenous, Once, On Wed05/05/22 at 1330, For 1 dose, Pre-op (day of) 1249 (Given - Provider: Gorge Rutherford RN) gabapentin (NEURONTIN) capsule 100 mg 100 mg, Oral, Every 8 hours scheduled, First dose on Wed05/05/22 at 2200, For 48 hours 2357 (Given - Provider: Emily Zambrano RN) 0625 (Given - Provider: Emily Zambrano RN) gabapentin (NEURONTIN) capsule 300 mg (COMPLETED) 300 mg, Oral, Once, On Wed05/05/22 at 1330, For 1 dose, Pre-op (day of) 1249 (Given - Provider: Gorge Rutherford RN) lactated ringers IV Bolus 1,000 mL (COMPLETED) 1,000 mL, Intravenous, Once, On Wed05/05/22 at 1715, For 1 dose 1721 (New Bag - Provider: Irma Valadez, MARIA DEL ROSARIO)1855 (Stopped - Provider: Irma Valadez RN) meloxicam (MOBIC) tablet 15 mg (COMPLETED) 15 mg, Oral, Once, On Wed05/05/22 at 1330, For 1 dose, Pre-op (day of), May administer with food or milk to reduce GI upset. 1249 (Given - Provider: Gorge Rutherford RN) naproxen (NAPROSYN) tablet 500 mg 500 mg, Oral, 2 times daily with meals, First dose on Wed05/06/22 at 0800, Administer with food, milk, or antacids to decrease GI adverse effects. 0624 (Given - Provid er: Emily Zambrano RN) omeprazole (PriLOSEC) capsule 20 mg 20 mg, Oral, Daily before breakfast, First dose on Wed05/06/22 at 0730, For administration while patient is taking naproxen. Do NOT crush or chew. 0624 (Given - Provid er: Emily Zambrano RN) eozrerluwmw-yuddqwqbjim-jdra idine-ketorolac 2.46-0.005- 0.0008-0.3mg/mL PERIARTICULAR syringe (COMPLETED) 100 mL, Intra-articular, Once, On Wed05/05/22 at 1315, For 1 dose, Pre-op (day of) 1315 (Due)1449 (Given - Provider: Adriana Ragsdale MD) senna (SENOKOT) tablet 2 tablet (CANCELED) 2 tablet, Oral, Nightly, First dose on Wed05/05/22 at 2100, Recovery & Post-op 2357 (Given - Provider: Emily Zambrano RN) senna (SENOKOT) tablet 2 tablet 2 tablet, Oral, 2 times daily, First dose (after last modification) on Wed05/06/22 at 0900, Recovery & Post-op 0900 (Due) sertraline (ZOLOFT) tablet 75 mg 75 mg, Oral, Daily, First dose on Wed05/06/22 at 0900 0821 (Given - Provid er: Santiago Mckenna RN) Continuous Medication Order 05/04/2022 05/05/2022 05/06/2022 lactated Ringers infusion (CANCELED) 20 mL/hr, Intravenous, Continuous, Starting on Wed05/05/22 at 1315, Pre-op (day of) 1249 (New Bag - Provider: Gorge Rutherford RN)1331 (Continued by Anesthesia - Provider: Juana Dubon CRNA)1702 (Paused - Provider: Nesha Chaudhry CRNA - Comment: Switch to gravity)1703 (Restarted - Provider: Nesha Chaudhry CRNA)1728 (Stopped - Provider: Irma Valadez RN) sodium chloride 0.9% infusion 75 mL/hr, Intravenous, Continuous, Starting on Wed05/05/22 at 1715, Recovery & Post-op, Discontinue IVF when PO intake is greater than 300 mL 1729 (New Bag - Provider: Irma Valadez RN)1909 (Stopped - Provider: Irma Valadez RN) 0600 (Stopped - Provider: Santiago Mckenna RN) PRN Medication Order 05/04/2022 05/05/2022 05/06/2022 ondansetron (PF) (ZOFRAN) injection 2 mg(Linked Group 3) 2 mg, Intravenous, Every 4 hours PRN, nausea, vomiting, Starting on Wed05/05/22 at 1857, If unable to tolerate PO. ondansetron (ZOFRAN) tablet 4 mg(Linked Group 3) 4 mg, Oral, Every 6 hours PRN, nausea, vomiting, Starting on Wed05/05/22 at 1857 oxyCODONE tablet 5-10 mg 5-10 mg, Oral, Every 4 hours PRN, severe pain or 7-10 (on a general 0-10 scale), Starting on Wed05/05/22 at 1857 2357 (Given - Provider: Emily Zambrano RN) polyethylene glycol packet 17 g, Oral, Daily as needed, other (free text field), severe constipation, Starting on Wed05/05/22 at 1857, Recovery & Post-op, Dissolve and stir one packet of powder (17 g) in 4-8 oz of water or juice. traMADoL (ULTRAM) tablet 100 mg (CANCELED) 100 mg, Oral, Every 8 hours PRN, moderate pain or 4-6 (on a general 0-10 scale), Starting on Wed05/05/22 at 1627, May be co-administered with ketorolac. 180 (Given - Provider: Irma Valadez RN) Linked Groups Order Group 1: acetaminophen (TYLENOL) tablet 975 mg (COMPLETED)Jump to med 975 mg, Oral, Once, On Wed05/05/22 at 1330, For 1 dose, Pre-op (day of) Or acetaminophen (TYLENOL) 650 mg/20.3 mL oral solution 975 mg (COMPLETED) 975 mg, Oral, Once, On Wed05/05/22 at 1330, For 1 dose, Pre-op (day of), If unable to tolerate tablet. Group 2: docusate (COLACE) 50 mg/5 mL liquid 100 mg (CANCELED) 100 mg, Oral, 2 times daily, First dose on Wed05/05/22 at 2100, Recovery & Post-op, If unable to tolerate capsule Or docusate sodium (COLACE) capsule 100 mgJump to med 100 mg, Oral, 2 times daily, First dose on Wed05/05/22 at 2100, Recovery & Post-op Group 3: ondansetron (ZOFRAN) tablet 4 mgJump to med 4 mg, Oral, Every 6 hours PRN, nausea, vomiting, Starting on Wed05/05/22 at 1857 Or ondansetron (PF) (ZOFRAN) injection 2 mgJump to med 2 mg, Intravenous, Every 4 hours PRN, nausea, vomiting, Starting on Wed05/05/22 at 1857, If unable to tolerate PO. documented in this encounter Care Teams Insurance Coder Relationship Specialty Start Date End Date Shant Bradford DO [address] [place] [address] PCP - General 07/16/20 documented as of this encounter Additional Source Comments The information contained in this document represents components of the legal health record. It is not the complete legal health record.[facility]
--- OUTSIDE RECORDS SUMMARY | 2023-11-23 18:39 | XMS_ITS | Data Portability ---
Author Organization [place] - [facility] Address [place] [address] Assessment No assessment recorded. Plan of Treatment Reminders Order Date Submit Date Provider Last Modified By Organization Details Last Modified Time Details Appointments New Patient 30 2023 09:10A M NINA ELIAS Not available Not available Not available Lab HIV (1+2) Ab screen, serum 2023 024 [id number] [facility] ([facility]), [address] [place] [address] [place], [address], 11/23/2023 10:53:07 RPR (rapid plasma reagin), serum 2023 024 [id number] [facility] ([facility]), [address] [place] [address] [place], [address], 11/23/2023 10:53:07 hepatitis C virus Ab, serum 2023 024 [id number] [facility] ([facility]), [address] [place] [address] [place], [address], 11/23/2023 10:53:07 venipunct ure 2023 024 [email or web address] Not available 11/23/2023 10:45:33 lyme antibody screen, EIA/wilma , serum 2023 024 [id number] [facility] ([facility]), [address] [place] [address] [place], [address], 11/23/2023 10:53:07 CT + NG RNA, urine 2023 [email or web address] [facility] ([facility]), [address] [place] [address] Dr, [place], [address], 11/23/2023 10:43:58 Referral None recorded. Procedures None recorded. Surgeries None recorded. Imaging None recorded. Medication Orders naproxen 500 mg tablet 2023 [facility], [address] [place], [address], 11/23/2023 10:57:52 doxycycli ne hyclate 100 mg capsule 2023 [facility], [address] [place], [address], 11/23/2023 10:57:49 Patient TargetsNo targets recorded. Patient Instructions Encounter Date Encounter Id Patient Instructions Last Modified By Organization Details Last Modified Time 11/23/2023 [id number] Today, due to known exposure, we will [...] full 28 days for possible Lyme arthritis. [email or web address] Not available 11/23/2023 10:35:04 Reason for Referral None Reported. Medical Equipment None Reported. Allergies Allergen ID Allergen Name Allergen Category Reaction Reaction Severity Criticality Documentation Date Start Date Code Code System Note Provider Name and Address Organization Details Recorded Time 99123 codeine medicatio n nausea mild low 11/23/2023 9480 RxNorm GÓMEZ PRICE [place] [facility], [place] - [facility]. 07/16/202 4 09:50:54 Medications Name Sig [...] Updated DateTime 4 177.8 cm 28.7 kg/m2 38742.4 7 g 17 /min 98.8 [degF] 95 % 95 % 89 /min 147 mm[Hg] 79 mm[Hg] GÓMEZ PRICE MA [facility] 4 09:53:40 Social History Question Answer Notes LastModified by Organizat ion Details LastModified Time Tobacco Smoking Status Never Smoker NATACHA WYNN [facility] 11/23/2023 09:51:32 What Was The Date Of Your Most Recent Tobacco Screening? 11/23/2023 [email or web address] Information not available 11/23/2023 Has Tobacco Cessation Counseling Been Provided? No Information not available 11/23/2023 Do You Or Have You Ever Used Any Other Forms Of Tobacco Or Nicotine? No [email or web address] Information not available 11/23/2023 Sex: Unknown Functional Status None recorded. Mental Status None recorded. Family History Nothing Reported. Medical History No medical history recorded. Immunizations Vaccine Type Date Status Provider Name and Address Organization Details Recorded Time COVID-19, mRNA, LNP-S, bivalent, PF, 50 mcg/0.5 mL or 25mcg/0.25 mL dose 09/08/2020 completed NATACHA WYNN [facility] 11/23/2023 09:23:36 COVID-19, mRNA, LNP-S, bivalent, PF, 50 mcg/0.5 mL or 25mcg/0.25 mL dose 10/02/2020 completed NATACHA WYNN, [facility], [facility]. 11/23/2023 09:23:42 COVID-19, mRNA, LNP-S, bivalent, PF, 50 mcg/0.5 mL or 25mcg/0.25 mL dose 04/25/2021 completed NATACHA WYNN, [facility], [facility] 11/23/2023 09:23:47 Tdap 07/04/2019 completed NATACHA WYNN, [facility], [facility] 11/23/2023 09:24:01 Past Encounters Encounter ID Performer Location Encounter Start Date Encounter Closed Date Diagnosis/Indication Diagnosis SNOMED-CT Code [id number] DEBI SILVERIO [address] [phone] 11/23/2023 09:10:58 11/23/2023 10:52:49 Exposure to chlamydia 0070055399963 Venereal d isease screening 042552755 Swelling o f knee joint 005424182 Health Concerns Section Related Observation LastModified by Organization Detai ls LastModified Time None Recorded Concern Status LastModified by Organization Details LastModified Time None Recorded Advance Directives Directive None Recorded Payers Encounter Date Sequence Insurance Name Policy Number Policy Gutierrez Covered Member ID Gutierrez Member ID Guarantor Name 11/23/2023 1 [place] [facility] David Morrow [id number] David Morrow Notes Date Note Type Note [...] tick exposure. DEBI SILVERIO [address], [place], [address], [facility]. 11/23/2023 10:58:00
--- OUTSIDE RECORDS SUMMARY | 2023-11-23 18:39 | XMS_ITS | Referral Summary ---
Author Organization [facility] Address [address] [place] [address] Care Team Providers Care Abrasive Worker Name Role Phone Unavailable Primary Care Provider Unavailabl e Encounters Date Type Department Care Team Description 11/23/2023 Lab Requisition [facility] [address] [address] Outr Resulting Lab, Provider 11/23/2023 Lab Requisition [facility] [address] [address] Outr Resulting Lab, Provider from Last 3 Months Social History Tobacco Use Types Packs/Day Years Used Date Smoking Tobacco: Never Assessed Interpersonal Safety Answer Date Record ed Physically Hurt Never 04/02/2020 Verbally Threaten Not on file 04/02/2020 Sex and Gender Information Value Date Recorded Sex Assigned at Not on file Gender Identity Not on file Sexual Orientation Not on file Plan of Treatment Not on file Procedures Procedure Name Priority Date/Time Associated Diagnosis Comments HEPATITIS C AB W REFLEX TO HCV RNA BY PCR Routine 05/26/2023 8:18 EST from Last 3 Months or Most Recently Relevant to Health Maintenance Results * HEPATITIS C AB W REFLEX TO HCV RNA BY PCR (05/26/2023 8:18 EST) Hep C Antibody Negative Negative 05/26/2023 19:26 EST [facility] Blood VENOUS BLOOD / Unknown 05/26/2023 8:18 EST 05/26/2023 16:48 EST Provider Outr Resulting Lab CHEMISTRY & BLOOD GAS ORDERABLES [facility] [address] [place] [address] from Last 3 Months or Most Recently Relevant to Health Maintenance
--- OUTSIDE RECORDS SUMMARY | 2023-11-23 18:39 | XMS_ITS | Encounter Summary ---
Author Organization [facility] Address [phone] [place] [address] Care Team Providers Care Bullet Slugs Inspector Name Role Phone Shant Bradford DO Primary Care Provider + Reason for Visit * Reason Comments Post-op 6 week fu L knee art hroplasty dos 05/05/22 Encounter Details Date Type Department Care Team ([facility] Contact Info) Description 06/15/2022 2:00 PM EST Office Visit [facility] Department of Orthopaedics [address] [place] [address] Adriana Ragsdale MD [address] [place] [id number] [email or web address] Status post total left knee replacement (Primary [...] Pressure - - Pulse - - Temperature 36.4 ??C (97.6 ??F) 06/15/2022 2:11 PM ES T Respiratory Rate - - Oxygen Saturation - - Inhaled Oxygen Concentration - - Weight - - Height - - Body Mass Index - - documented in this encounter Progress Notes * Adriana Ragsdale MD - 06/15/2022 2:00 PM EST Images from the original note were not included. Adriana Ragsdale MD, ASHLEY Director of Research, Arthroplasty Services [facility] David Morrow ?DATE OF : @ DATE OF SERVICE: 06/15/22 Diagnosis: 1. Status post total left knee replacement Surgery: L TKR kwame with lateral release 05/05/22 HPI: This patient presents today for 6 weeks follow-up appointment. Patient is doing well with the left knee replacement. He is only taking once or twice Naprosyn and Tylenol for some achiness and pain. Patient have 2 scabs on the incision otherwise patient does feel some clicking sensation of the knee And the knee joint however no pain. Patient to feel some leg length discrepancy left side slightly longer than the right. Patient also asked about needing exercises. Patient talked about travel restrictions. PHYSICAL EXAMINATION: Vitals: 06/15/22 1411 Temp: 36.4 ??C (97.6 ??F) There is no height or weight on file to calculate BMI. Patient is a male; alert and oriented, in no acute distress. Well developed, appropriate affect. left knee reveals: Nicely healed wound. Mild erythema over to scab in the middle of the knee, no effusion, no drainage. well-healed otherwise ROM: 0-130 Stable to varus and valgus stress, and anterior and posterior stress Calf is supple and nontender. Neurovascularly intact. Grossly in tact to light touch. X-rays of the patient's left knee taken today ?VISIT DIAG: Status post total left knee replacement [Z96.652] ? What is discussed: The above patient is doing well following left total knee arthroplasty without complications. Try to have x-ray of leg lengths and will be measured and I do a small lift on the right side after. Patient will be given kneeling exercises sheet. Patient otherwise see us back for theleft knee with x- ray a year from surgery. Patient will monitor the scabs and if there is any problem with drainage or redness increasing will let us know and use antibiotics for that. This is Mary Nava PA-C, who saw [...] the above note. PLAN: The patient is doing well after a left total knee replacement and his range of motion is doing well. He is worried about his limb length so we will get x-rays to evaluate his limb length. He will start kneeling in 3 to 6 months. He will monitor his scabs until they fall off. He will follow-upat his 1 year follow-up with x-rays. Adriana Ragsdale MD/ASHLEY Orthopaedic attending This note was dictated using Sparkroad software. While it was briefly proofread prior to completion, some grammatical, spelling, and word choice errors due to dictation may still occur. Current view: Showing all answers Proms Msk All Joints Selector New Question 06/15/2022 8:29 AM EST - Filed by Patient 05/17/2022 6:30 PM EST - Filed by Patient What is the reason for your visit? Please also select any joints/areas for which you are scheduled or have recently had surgery. Knee Knee The following questions provide your doctor and [...] and may be visible in your [facility] portal. Get started Does your health now limit you in doing vigorous activities, such as running, lifting heavy objects, participating in strenuous sports? Cannot do Does your health now limit you in walking more than a mile? (1.6 km) Somewhat Does your health now limit you in climbing one flight of stairs? Somewhat Does your health now limit you in lifting or carrying groceries? Very little Does your health now limit you in bending, kneeling, or stooping? Very little Are you able to do chores such as vacuuming or yard work? With a little difficulty Are you able to dress yourself, [...] calculation purposes only) (range: 10 - 50) 39 PROMs PROMIS Physical Function SF10a (range: 0 - 62) 41.7 (Mild) Please indicate the degree of difficulty you have experienced in the LAST WEEK due to your knee problem. Rising from bed None Putting on socks/stockings Mild Rising from sitting None Bending to floor None Twisting/pivoting on your injured knee Mild Kneeling Moderate Squatting Moderate PROMs KOOS-PS Raw Score (range: 0 - 28) 6 PROMs Knee Outcome Score (KOOS-PS) (range: 0 - 100) 75.1 (Mild) In the past 7 days, what most affected your physical function? Left knee In the past 7 days, what most affected your pain? Left knee Are you a new patient or being seen for a new problem? No ARE YOU AWARE OF YOUR JOINT... ???in bed at night? Almost never ???when you are sitting on a chair for more than one hour? Almost never ???when you are walking for more than 15 minutes? Sometimes ???when you are taking a shower or bath? Almost never ???when you are traveling in a car? Sometimes ???when you are climbing stairs? Mostly ???when you are walking on uneven ground? Mostly ???when you are standing up from a low-sitting position? Sometimes ???when you are standing for long periods of time? Sometimes ???when you are doing housework or gardening? Sometimes ???when you are taking a walk or hiking? Mostly ???when you are doing your favorite sport? Mostly (interim score for calculation purposes only) (range: 0 - 12) 12 (interim score for calculation purposes only) (range: 0 - 48) 34 PROMs Forgotten Joint Score (range: 0 - 100) 29.17 (Higher is better) Proms Msk Knee Root New Question 05/04/2022 [...] and may be visible in your [facility] portal. Get started Does your health now limit [...] 0 - 100) 41.67 (Higher is better) Previous Responses Proms Promis-10 Question 05/04/2022 4:21 PM EST - Filed by Patient In general, [...] on file documented as of this encounter Results * XR Bone Length Study (06/15/2022 3:33 PM EST) Anatomical Region Laterality Modality Leg Left, Leg Right, Thigh Left, Thigh Right Computed Radiography 06/16/2022 8:40 AM EST Impressions 06/16/2022 8:45 AM EST Leg lengths, as above. Narrative 06/16/2022 8:45 AM EST XR BONE LENGTH STUDY COMPARISON: XR KNEE 1-2 VIEWS (LEFT) ; XR BONE LENGTH STUDY FINDINGS: Left lower extremity measures 87.4 cm. Non-calibrated measurements are provided. Right lower extremity measures 89.5 cm. Non-calibrated measurements are provided. Hips: Mild hypertrophic changes in both hips with preserved cartilage space. Degenerative changes at the presumed L5-S1 level. No displaced fracture. Left Knee: Total knee arthroplasty appears intact on the frontal view. Additional small fixation plate along the distal femur. Right Knee: Sequela of prior ACL reconstruction. Mild narrowing of the medial and lateral tibiofemoral cartilage space with marginal osteophytes. Ankles: Tibiotalar cartilage space appears preserved. Ossicles along the medial lateral malleoli of the right ankle, similar to prior radiograph and likely due to old injury. Procedure Note Paige Estes MD - 06/16/2022 XR BONE LENGTH STUDY COMPARISON: XR KNEE 1-2 VIEWS (LEFT) ; XR BONE LENGTH [id number] FINDINGS: Left lower extremity measures 87.4 cm. Non-calibrated measurements areprovided. Right lower extremity measures 89.5 cm. Non-calibrated measurements areprovided. Hips: Mild hypertrophic changes in both hips with preserved cartilagespace. Degenerative changes at the presumed L5-S1 level. No displacedfracture. Left Knee: Total knee arthroplasty appears intact on the frontal view.Additional small fixation plate along the distal femur. Right Knee: Sequela of prior ACL reconstruction. Mild narrowing of themedial and lateral tibiofemoral cartilage space with marginalosteophytes. Ankles: Tibiotalar cartilage space appears preserved. Ossicles along themedial lateral malleoli of the right ankle, similar to prior radiographand likely due to old injury. IMPRESSION: Leg lengths, as above. Mary Nava PA-C IMG XR SKELETAL SURV EY documented in this encounter Visit Diagnoses Diagnosis Status post total left knee replacement- Primary Status post total left knee replacement documented in this encounter Care Teams Bullet Slugs Inspector Relationship Specialty Start Date End Date Shant Bradford DO [address] [place] [id number] PCP - General 07/16/20 documented as of this encounter Additional Source Comments The information contained in this document represents components of the legal health record. It is not the complete legal health record.[facility]
--- OUTSIDE RECORDS SUMMARY | 2023-11-23 18:39 | XMS_ITS | Encounter Summary ---
Author Organization [facility] Address [phone] [facility] [place] [address] Care Team Providers Care Spray I Painter Name Role Phone Shant Bradford DO Primary Care Provider + Encounter Details Date Type Department Care Team (Latest Contact Info) Description 06/15/2022 3:11 PM EST - 06/15/2022 11:59 PM EST Hospital Encounter [facility] Diagnostic X-ray Imaging, [place] [address] [place] [address] Mary Nava, PAAlexaC [address] [place] [address] [email or web address] Discharge Disposition: Home or Self Care Social [...] Name Priority Date/Time Associated Diagnosis Comments XR BONE LENGTH STUDY Routine 06/15/2022 3:33 PM EST Status post total left knee replacement documented in this encounter Results * XR Bone Length [...] 1-2 VIEWS (LEFT) ; XR BONE LENGTH [id number] FINDINGS: Left lower extremity measures 87.4 cm. [...] Diagnoses Diagnosis Status post total left knee replacement documented in this encounter Care Teams Spray I Painter Relationship Specialty Start Date End Date Shant Bradford DO [address] [place] [address] PCP - General 07/16/20 documented as of this encounter Additional Source Comments The information contained in this document represents components of the legal health record. It is not the complete legal health record.[facility]
--- OUTSIDE RECORDS SUMMARY | 2023-11-23 18:39 | XMS_ITS | Encounter Summary ---
Author Organization [facility] Address [address] [place] [address] Care Team Providers Care Hat Block Maker Name Role Phone Unavailable Primary Care Provider Unavailabl e Encounter Details Date Type Department Care Team (Late st Contact Info) Description 11/05/2020 Lab Requisition [facility] Pathology & Laboratory Medicine - [facility] [address] [place] [address] Outr Resulting Lab, Provider Social History Tobacco [...]
--- OUTSIDE RECORDS SUMMARY | 2023-11-23 18:39 | XMS_ITS | Clinical Summary ---
Author Organization [facility] Address [phone] [facility] [place] [address] Care Team Providers Care Senior Salesforce Developer Name Role Phone Shant Bradford DO Primary Care Provider + Allergies Active Allergy Reactions Criticality Noted Date Comments Codeine Nausea and/or Vomiting 07/24/2020 Allergy in childhood, received in adulthood with mild nausea [facility] Upset,Hives,Itching 04/28/2022 Shellfish Containing Products Anaphylaxis High 07/24/2020 Medications Medication Sig Dispensed Refills Start Date End Date Status sertraline (ZOLOFT) 50 MG tablet Take 75 mg by mouth daily. 1.5 tablets Active cetirizine (ZYRTEC) 10 MG tablet Take 10 mg by mouth daily. Active omeprazole (PRILOSEC) 10 MG capsule Take 10 mg by mouth daily. Active aspirin 81 MG EC tablet Take 1 tablet (81 mg total) by mouth 2 (two) times a day for 28 days. 56 tablet 05/06/2022 Active acetaminophen (TYLENOL) 325 mg tabletIndications:S tatus post total left knee replacement Take 3 tablets (975 mg total) by mouth every 8 (eight) hours. 90 tablet 1 05/18/2022 Active naproxen (NAPROSYN) 500 MG tabletIndications:S tatus post total left knee replacement Take 1 tablet (500 mg total) by mouth 2 (two) times a day with meals for 14 days. 60 tablet 1 05/18/2022 Active oxyCODONE 5 MG immediate release tabletIndications:S tatus post total left knee replacement Take 1 tablet (5 mg total) by mouth 3 (three) times a day as needed. Partial fill ok 21 tablet 05/18/2022 Active amoxicillin (AMOXIL) 500 MG capsuleIndications: Status post total left knee replacement Take 4 capsules (2,000 mg total) by mouth once as needed (One hour before dental, colonoscopy or endoscopy for 2 years post surgery). 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7 kg (200 lb) 03/31/2023 2:56 PM EST Height 175 cm (5' 8.9) 03/31/2023 2:56 PM EST Body Mass Index 29.62 03/31/2023 2:56 PM EST Plan of Treatment Health Maintenance Due Date Last Done Comments Adult Td,Tdap Booster 1990 PNEUMOCOCCAL VACCINES (0-64 years) (1 of 2 - PCV) 02/05/1996 DEPRESSION SCREENING 2003 HEPATITIS C SCREENING 02/05/2008 HIV ONE-TIME SCREENING (18-6 5 YEARS) 02/05/2008 COVID-19 VACCINE (1 - 2022-2 4 season) 2023 SMOKING STATUS SCREENING (On ce After 26 Yrs) Completed 06/15/2022 HIB VACCINES Aged Out No longer eligi ble based on patient's age to complete this topic MENINGOCOCCAL VACCINES (ACWY) Aged Out No longer eligible based on patient's age to complete this topic Medical Devices Implanted Type Area Engraving Plate Maker Device Identifier Shelf Expiration Date Model / Serial / Lot Knee Implant Sz 4 Component Femoral Triathlon Cruciate Retaining Parul Apatite Beaded Cementless Lt - Sn/A Implanted:Qty: 1 on 05/05/2022 by Adriana Ragsdale MD at [facility] Left: Knee [employer] 09/28/2026 5517-F-[id number] / N/A / [id number] Knee Baseplate [id number] Size 5 Tibial Triathlon Total Tritanium Porous Uncemented - Sn/A Implanted:Qty: 1 on 05/05/2022 by Adriana Ragsdale MD at [facility] Left: Knee [employer] 06/22/2026 5536-B-[id number] / N/A / [id number] Nsert I 9.0mm Size 5 Tibial Knee Triathlon Cs Polyethylene Condylar Bearing Stabilized - [id number] Implanted:Qty: 1 on 05/05/2022 by Adriana Ragsdale MD at [facility] Left: Knee [employer] 10/29/2026 [id number]-G-[id number] / / [id number] , [place] [address] Odalys,David Personal/Family Self [address] [place] [address], [place] [address] Odalys,David Personal/Family Self [address] [place] [address], [place] [address] Odalys,David Personal/Family Self [address] [place] [address], [place] [address] Maryneal,David Personal/Family Self [address], [address] [place] [address], [place] [address] Maryneal,David Personal/Family Self [address], [address] [place] [address], [place] [address] Odalys,David Personal/Family Self [address], [address] [place] [address], [place] [address] Odalys,David Personal/Family Self [address], [address] [place] [address], [place] [address] Advance Directives * Full Code (Latest Code Status on File) Date Activated Date Inactivated Comments 05/05/2022 7:04 PM Question Answer Comments Code Status Confirmed With: Patient Care Teams Senior Salesforce Developer Relationship Specialty Start Date End Date Shant Bradford DO [address] [place] [id number] PCP - General 07/16/20 Additional Source Comments The information contained in this document represents components of the legal health record. It is not the complete legal health record.[facility]
--- OUTSIDE RECORDS SUMMARY | 2023-11-23 18:39 | XMS_ITS | Encounter Summary ---
Author Organization [facility] Address [phone] [facility] [place] [address] Care Team Providers Care Disintegrator Name Role Phone Shant Bradford DO Primary Care Provider + Encounter Details Date Type Department Care Team (Late st Contact Info) Description 03/25/2023 Orders Only [facility] Department of Orthopaedics [address] [place] [address] Adriana Ragsdale MD [address] [place] [phone] [email or web address] Chronic pain of left knee (Primary Dx) Social History Tobacco Use Types [...] as of this encounter Results * XR KNEE 4 OR MORE VIEWS (LEFT) (03/31/2023 2:38 PM EST) Anatomical Region Laterality Modality Knee Left Radiographic Christal ging 03/31/2023 3:18 PM EST Impressions 03/31/2023 3:21 PM EST Left total knee arthroplasty, no complication. Narrative 03/31/2023 3:21 PM EST XR KNEE 4 OR MORE VIEWS (LEFT) Referring clinician's provided indication for this examination in [facility]: Pain COMPARISON: XR KNEE 1-2 VIEWS (LEFT) [...] clinician's provided indication for this examination in [facility]:Pain COMPARISON: XR KNEE 1-2 VIEWS (LEFT) ; [...] Visit Diagnoses Diagnosis Chronic pain of left knee- Primary Chronic pain of left knee documented in this encounter Care Teams Disintegrator Relationship Specialty Start Date End Date Shant Bradford DO [address] [place] [address] PCP - General 07/16/20 documented as of this encounter Additional Source Comments The information contained in this document represents components of the legal health record. It is not the complete legal health record.[facility]
--- OUTSIDE RECORDS SUMMARY | 2023-11-23 18:39 | XMS_ITS | Encounter Summary ---
Author Organization [facility] Address [address] [place] [address] Care Team Providers Care Lead Software Developer Name Role Phone Unavailable Primary Care Provider Unavailabl e Encounter Details Date Type Department Care Team (Late st Contact Info) Description 11/23/2023 Lab Requisition [facility]ology [facility] Medicine - [facility] [address] [place] [address] Outr Resulting Lab, Provider Social History Tobacco [...] of this encounter Plan of Treatment Scheduled Orders Name Type Priority Associated Diagnoses Orde r Schedule LYME AB Lab Routine Ordered: 11/22 HEPATITIS C AB W REFLEX TO H CV RNA BY PCR Lab Routine Ordered: 024 SYPHILIS SEROLOGY Lab Routine Ordered : 11/23/2023 documented as of this encounter Visit Diagnoses Not on filedocumented in this encounter
--- OUTSIDE RECORDS SUMMARY | 2023-11-23 18:39 | XMS_ITS | Encounter Summary ---
Author Organization [facility] Address [address] [place] [address] Care Team Providers Care Engine Service Repairer Name Role Phone Unavailable Primary Care Provider Unavailabl e Encounter Details Date Type Department Care Team (Late st Contact Info) Description 11/23/2023 Lab Requisition [facility] Pathology & Laboratory Medicine - [facility] [address] [place] [address] Outr Resulting Lab, Provider Social History Tobacco [...] Type Priority Associated Diagnoses Orde r Schedule HIV 1/2 ANTIGEN AND ANTIBODY , 4TH GENERATION Lab Routine Ordered: 024 documented as of this encounter Visit Diagnoses Not on filedocumented in this encounter
--- OUTSIDE RECORDS SUMMARY | 2023-11-23 18:40 | XMS_ITS | Encounter Summary ---
Author Organization [facility] Address [phone] formerly [facility] [place] [address] Care Team Providers Care Tankerman Name Role Phone Shant Bradford DO Primary Care Provider + Encounter Details Date Type Department Care Team ([facility] st Contact Info) Description 10/17/2020 Ancillary Procedure [facility] [address] [place] [address] Delvis Kuhn MD [address] [place] [phone] [email or web address] Social History Tobacco Use Types Packs/Day Years Used Date Smoking Tobacco: Never Smokeless Tobacco: Never Sex and Gender Information Value Date Recorded Sex Assigned at Male 07/16/2020 11:01 AM EST Gender Identity Male 07/16/2020 11:01 AM EST Sexual Orientation Straight 07/16/2020 11 :01 AM EST documented as of this encounter Plan of Treatment Not on file documented as of this encounter Procedures Procedure Name Priority Date/Time Associated Diagnosis Comments MRI LOWER EXTREMITY OUTSIDE (NO INTERPRETATION) Routine 10/17/2020 12:00 AM EDT documented in this encounter Results * MRI Lower Extremity Outside (No Interpretation) (10/17/2020 12:00 AM EDT) Narrative [facility] - 12/26/2020 8:41 AM EDT This study is for PACS storage only and not for interpretation. Delvis Kuhn MD IMG OUTSIDE IMAG ING W/OUT INTERPRETATION [facility] documented in this encounter Visit Diagnoses Not on filedocumented in this encounter Care Teams Tankerman Relationship Specialty Start Date End Date Shant Bradford DO [address] [place] [address] PCP - General 07/16/20 documented as of this encounter Additional Source Comments The information contained in this document represents components of the legal health record. It is not the complete legal health record.[facility]
--- OUTSIDE RECORDS SUMMARY | 2023-11-23 18:40 | XMS_ITS | Encounter Summary ---
Author Organization [facility] Address [phone] [facility] [place] [address] Care Team Providers Care Box Builder Name Role Phone Shant Bradford DO Primary Care Provider + Encounter Details Date Type Department Care Team ([facility] st Contact Info) Description 04/29/2022 Orders Only [facility] Orthopedics - [place] [address] [address] Adriana Ragsdale MD [address] [place] [phone] [email or web address] Social History Tobacco Use Types Packs/Day [...] on filedocumented in this encounter Care Teams Box Builder Relationship Specialty Start Date End Date Shant Bradford DO [address] [place] [phone] PCP - General 07/16/20 documented as of this encounter Additional Source Comments The information contained in this document represents components of the legal health record. It is not the complete legal health record.[facility]
--- OUTSIDE RECORDS SUMMARY | 2023-11-23 18:40 | XMS_ITS | Encounter Summary ---
Author Organization [facility] Address [phone] [place] [address] Care Team Providers Care Data Collection Interviewer Name Role Phone Shant Bradford DO Primary Care Provider + Reason for Referral * MRI/CAT Scan - Closed Specialty Diagnoses / Procedures Referred By Contac t Referred To Contact Radiology Diagnoses Chronic pain of left knee Procedures CT Knee (Left) CHG CT SCAN,LOWER EXTREMITY,W/O CONTRAST Adriana Ragsdale MD [address] [place] [phone] Email: [email or web address] Parent [address] [place] [phone] Referral ID Status Reason Start Date Expiration Date Visits Re quested Visits Authorized [id number] Closed 03/25/2022 05/25/2022 2 2 Reason for Visit * MRI/CAT Scan - Closed Specialty Diagnoses / Procedures Referred By Contac t Referred To Contact Radiology Diagnoses Chronic pain of left knee Procedures CT Knee (Left) CHG CT SCAN,LOWER EXTREMITY,W/O CONTRAST Adriana Ragsdale MD [address] [place] [phone] Email: [email or web address] Parent [address] [place] [phone] Referral ID Status Reason Start Date Expiration Date Visits Re quested Visits Authorized [id number] Closed 03/25/2022 05/25/2022 2 2 Encounter Details Date Type Department Care Team (Latest Contact Info) Description 04/10/2022 12:08 PM EST - 04/10/2022 12:34 PM EST Hospital Encounter [facility] [address] [place] [address] Adriana Ragsdale MD [address] [place] [phone] [email or web address] Discharge Disposition: Home or Self Care [...] 8 (eight) hours. 90 tablet 05/06/2022 05/18/2022 cyclobenzaprine (FLEXERIL) 5 MG tablet Take 5 mg by mouth 3 (three) times a day as needed for muscle spasms. 05/06/2022 docusate sodium (COLACE) 100 MG capsule Take [...] 05/06/2022 06/15/2022 documented as of this encounter Plan of Treatment Not on file documented as of this encounter Procedures Procedure Name Priority Date/Time Associated Diagnosis Comments CT KNEE WITHOUT CONTRAST (LEFT) Routine 04/10/2022 1:08 PM EST Chronic pain of left knee documented in this encounter Results * CT KNEE WITHOUT CONTRAST (LEFT) (04/10/2022 1:08 PM EST) Anatomical Region Laterality Modality Knee Left Computed Tomogra phy 04/10/2022 1:54 PM EST Impressions 04/10/2022 1:59 PM EST 1. ??Tricompartmental osteoarthritis of the left knee. Narrative 04/10/2022 1:[address] KNEE WITHOUT CONTRAST (LEFT) TECHNIQUE: Multidetector-row CT of the knee, without intravenous contrast using dose-modulation techniques. Images were reconstructed in the axial, coronal, and sagittal planes. Axial images of the ipsilateral hip and ankle were obtained for surgical planning purposes. COMPARISON: XR KNEE 4 OR MORE VIEWS (BILATERAL) FINDINGS: Left knee: Stigmata of multiple ACL reconstruction. Tricompartmental osteophytes. Subchondral sclerosis and cystic change within the medial tibial plateau. Subchondral sclerosis and internal osteophyte formation of the posterior medial femoral condyle. Small joint effusion. Normal muscle bulk. Left hip: Preserved cartilage space with mild hypertrophic and cystic change of the superior acetabulum. No soft tissue abnormality. Left ankle: Normal joint spaces. Small Achilles enthesophyte. Bone island within the posterior calcaneus. Tiny plantar calcaneal spur. No soft tissue abnormality. Procedure Note Cristina Wade MD - 04/10/2022 CT KNEE WITHOUT CONTRAST (LEFT) TECHNIQUE: Multidetector-row CT of the knee, without intravenous contrastusing dose-modulation techniques. Images were reconstructed in the axial,coronal, and sagittal planes. Axial images of the ipsilateral hip andankle were obtained for surgical planning purposes. COMPARISON: XR KNEE 4 OR MORE VIEWS (BILATERAL) 2020- FINDINGS: Left knee: Stigmata of multiple ACL reconstruction. Tricompartmentalosteophytes. Subchondral sclerosis and cystic change within the medialtibial plateau. Subchondral sclerosis and internal osteophyte formation ofthe posterior medial femoral condyle. Small joint effusion. Normal musclebulk. Left hip: Preserved cartilage space with mild hypertrophic and cysticchange of the superior acetabulum. No soft tissue abnormality. Left ankle: Normal joint spaces. Small Achilles enthesophyte. Bone islandwithin the posterior calcaneus. Tiny plantar calcaneal spur. No softtissue abnormality. IMPRESSION: 1. Tricompartmental osteoarthritis of the left knee. Adriana Ragsdale MD IMG CT EXTREMITY documented in this encounter Visit Diagnoses Diagnosis Chronic pain of left knee documented in this encounter Care Teams Data Collection Interviewer Relationship Specialty Start Date End Date Shant Bradford DO [address] [place] [address] PCP - General 07/16/20 documented as of this encounter Additional Source Comments The information contained in this document represents components of the legal health record. It is not the complete legal health record.[facility]
--- OUTSIDE RECORDS SUMMARY | 2023-11-23 18:40 | XMS_ITS | Encounter Summary ---
Author Organization [facility] Address [phone] [facility] [place] [address] Care Team Providers Care Commissioning Engineer Name Role Phone Shant Bradford DO Primary Care Provider + Encounter Details Date Type Department Care Team ([facility] Contact Info) Description 09/26/[address] [phone] Delvis Kuhn MD [address] [place] [address] [email or web address] Social History Tobacco Use Types Packs/Day Years Used Date Smoking Tobacco: Never Smokeless Tobacco: Never Sex and Gender Information Value Date Recorded Sex Assigned at Male 07/16/2020 11:01 AM EST Gender Identity Male 07/16/2020 11:01 AM EST Sexual Orientation Straight 07/16/2020 11 :01 AM EST documented as of this encounter Progress Notes * Yarely Bran - 09/26/2020 10:48 AM EDT [facility] called, asking for PA for MRI Dr. Hein ordered for pt. Please call with auth # or advise otherwise. , for Juany/Balwinder documented in this encounter Plan of Treatment Not on file documented as of this encounter Visit Diagnoses Not on filedocumented in this encounter Care Teams Commissioning Engineer Relationship Specialty Start Date End Date Shant Bradford DO [address] [place] [address] PCP - General 07/16/20 documented as of this encounter Additional Source Comments The information contained in this document represents components of the legal health record. It is not the complete legal health record.[facility]
--- OUTSIDE RECORDS SUMMARY | 2023-11-23 18:40 | XMS_ITS | Encounter Summary ---
Author Organization [facility] Address [phone] [place] [address] Care Team Providers Care Customer Contact Sales Associate Name Role Phone Shant Bradford DO Primary Care Provider + Reason for Visit * Auth/Cert Specialty Diagnoses / Procedures Referred By Charla t Referred To Contact Diagnoses Primary osteoarthritis of left knee Left Total Knee Replacement Lelo Lateral Release Procedures [place] TOTAL KNEE ARTHROPLASTY ROBOTIC ARTHROPLASTY TOTAL KNEE WITH LATERL RELEASE Referral ID Status Reason Start Date Expiration Date Visits Re quested Visits Authorized [id number] 1 1 Encounter Details Date Type Department Care Team (Late st Contact Info) Description 05/05/2022 1:45 PM EST - 05/05/2022 4:35 PM EST Surgery BWF Periop 6th floor [address] [place] [address] Adriana Ragsdale MD [address] [place] [id number] [email or web address] ROBOTIC ARTHROPLASTY TOTAL KNEE WITH LATERL RELEASE Surgery Details Date/Time Status Location OR Service Patient Class Case Class Case Type Trauma Case? 05/05/22 1:45 PM Posted BWF OR 6TH FLOOR OR 16 Orthopedic Surgery Post Procedure Recovery Elective Panel 1 Procedure LRB Anes Op Region Wound Class Comments ROBOTIC ARTHROPLASTY TOTAL K NEE WITH LATERL RELEASE Left Choice Clean (1) Surgeon Surgeon Role Service Panel Kenny Chiu MD Fellow Orthopedic Surgery 1 Adriana Ragsdale MD Primary Orthopedic Surgery 1 Special Needs : Miesha Triathlon knee (CR femur, CS insert, universal tibial baseplate, cemented and cementless available, patella resurfacing available) + Lelo robot, Palacos MV cement / antibiotic cement for high-risk patients*. Phone PPE needed. documented in this encounter Social History Tobacco Use Types Packs/Day Years [...] Sign Reading Time Taken Comments Blood Pressure 146/90 05/05/2022 12:43 PM EST Pulse 84 05/05/2022 12:43 PM EST Temperature 36.3 ??C (97.3 ??F) 05/05/2022 12:[address] Respiratory Rate - - Oxygen Saturation 99% 05/05/2022 12:43 PM EST Inhaled Oxygen Concentration - - Weight [...] y.o. male ( = 1990) Home Address: [address] [place] [id number] (home) Preferred Language: Macanese Written Language: Macanese Needs Circuit Designer: No Type of Advance Care Directive(s): None [...] Fay MD - Anesthesia AttendingParrott, Juana De Guzman, KASSANDRA - KASSANDRAKlNesha pandey CRNA - CRNAOmobela, Iva Harrington CRNA - Kenny Sheikh MD - FellowChen, Adriana Cee MD - Primary Procedures this admission None Non (OR) Procedures: Pending Results None Hospital Course David Morrow is a 32 y.o. male who has a history of left knee osteoarthritis, which has failedconservative medical management, therefore was admitted to the [facility] and underwent an elective left total knee replacement on 05/05/2022 with Adriana Ragsdale MD. David Morrow is a 32 y.o. male underwent the above procedure by Adirana Ragsdale MD at [facility] on 05/05/2022. The patient tolerated the [...] Your Medications These medications [id number] [place], [place] - [address] [facility] [address] [facility] [address] ?? acetaminophen 325 mg tablet ?? aspirin 81 MG EC tablet ?? dexAMETHasone 2 MG tablet ?? docusate sodium 100 MG capsule ?? naproxen 500 MG tablet ?? omeprazole 20 MG capsule ?? ondansetron 4 MG tablet ?? oxyCODONE 5 MG immediate release tablet ?? senna 8.6 mg tablet Hospital Care Team Service: Orthopedics Inpatient Attending: Adriana Ragsdale MD Attending [facility] phone: Discharge Unit: [place] [id number] Primary Care Physician: Shant Bradford DO [phone] Transitional Plan Scheduled appointments: Scheduled Appointments (maximum listed = 10) Provider Department Dept Phone Center Visit Type 05/18/2022 3:15 PM Adriana Ragsdale MD [facility] Department of Orthopaedics [phone] [facility] 06/15/2022 2:00 PM Adriana Ragsdale MD [facility] Department of Orthopaedics [phone] [facility] Signed Discharge Orders (From admission, onward) Ordered 05/06/22 075 Activity as tolerated 05/06/22752 Other, please specify Comments: See specific patient instructions. 05/06/22752 Discharge diet Question: Diet type Answer: Regular 05/06/22752 For any questions call Treatment Team: Surgeon: Adriana Ragsdale MD [phone] Comments: For any questions call Treatment Team: Surgeon: Adriana Ragsdale MD [phone] 05/06/22752 Wound care Comments: Remove dressing 7 days after surgery. 05/06/22752 Ambulatory referral to External Physical Therapy Question [...] please contact your surgeon's office 's office [phone]. - Any unused opioid medications (e.g., oxycodone, dilaudid, or tramadol (Ultram)) should be returned to the pharmacy or brought to a safe disposal location (log into https://www.Scutum.gov/#collection-broadcast chief engineer to find a location near you). - [...] back off on exercises, rest and elevate. Terry/Victoria patient's - please continue to wear your [...] long way under your leg.' Dressing/Incision Care: Victoria patient's with Prineo dressing - please remove [...] schedule or confirm this appointment. 's office [phone]. For urgent issues during Wednesday through Wednesday call your surgeon's office directly. Evenings, weekends, and holidays please call [phone] and ask to speak with the Orthopedic [id number]. You should also schedule an appointment with your primary care physician (PCP) in 2-4 weeks or as needed. Exam Temperature: 36.5 ??C (97.7 ??F) (05/06/22 0400) Heart Rate: 73 (05/06/22 0400) BP: 121/78 (05/06/22 0400) Respiratory Rate: 16 (05/06/22 0000) SpO2: 100 % (05/06/22 0400) O2 Device: None (Room air) (05/06/22399) O2 Flow Rate (L/min): 6 Weight: 90.7 [...] prescribing the opioid, I utilized the MassPat ([place] Prescription Awareness Tool) to review the patient's previous prescriptions. The script was written with the intention to wean. Patient was instructed on how to appropriately wean off narcotics and disposal of unused/unwanted pills. Areli Walters, MSN, WEB SERVICES PROFESSIONAL-C [facility] Orthopedic Spine Surgery Service P documented in this encounter Discharge Instructions * Discharge Instructions* Areli Walters NP - 05/05/2022 5:38 PM EST Images from the original note were not included. David Waterman underwent a left total knee [...] please contact your surgeon's office 's office [phone]. Any unused opioid medications (e.g., oxycodone, dilaudid, or tramadol (Ultram)) should be returned to the pharmacy or brought to a safe disposal location (log into https://www.robert.gov/take#collection-broadcast chief engineer to find a location near you). You [...] back off on exercises, rest and elevate. Terry/Victoria patient's - please continue to wear your [...] long way under your leg.' Dressing/Incision Care: Victoria patient's with Prineo dressing - please remove [...] schedule or confirm this appointment. 's office [phone]. For urgent issues during Wednesday through Wednesday call your surgeon's office directly. Evenings, weekends, and holidays please call [phone] and ask to speak with the Orthopedic [id number]. You should also schedule an appointment with [...] of this encounter Progress Notes * Mary Blake, OT - 05/06/2022 8:30 AM EST Occupational [...] consult at this time. Mary Blake OT [id number] * Yasmeen Genao, PT - 05/06/2022 7:10 AM EST Images from the original note were not included. Physical Therapy Physical Therapy Inpatient Daily Treatment Note: General Ortho Patient Name: David Morrow Date of : 1990 Recommendations: PT Discharge Recommendation: Home PT PT Discharge Comment: Recommend pt DC home with PT services when medically cleared Safety/Fall: Falls risk Activity While in Hospital: Activity as tolerated RW with CS Positioning: no pillow or supports underneath L knee, promote TKE via towel roll uner heel Interventions Performed/Objective Findings Most Recent Labs: Lab Results Component Value Date WBC 18.86 (H) 05/06/2022 RBC 4.68 05/06/2022 HGB 14.5 05/06/2022 HCT 42.0 05/06/2022 PLT 227 05/06/2022 MCV 89.7 05/06/2022 MCH 31.0 05/06/2022 MCHC 34.5 05/06/2022 RDW 11.6 05/06/2022 MVP 10.8 05/06/2022 NRBCA 0.00 05/06/2022 Mental Status: A+Ox7 Pain: L knee pain well controlled. Pt notes a 'clicking sound with knee flexion toward end range, no significant pain association UE/LE ROM and Strength Assessment: Left Hip L Hip Strength Flexion (L2): 3+/5 (able to SLR) Left Knee L Knee AROM Flexion: 104 Degrees L Knee Strength Flexion (L4-S1): 3/5 L Knee AROM Extension: 0 Degrees L Knee Strength Extension (L3): 3/5 Left Ankle/Toe L Ankle Strength Dorsiflexion (L4): 5/5 L Ankle Strength Plantar Flexion (S1): 5/5 Vital Signs: 05/06/22 0730 05/06/22 0735 Vitals Vital Activity Type Resting Recovery Patient Position Semi Murray's Sitting Heart Rate 88 -- Heart Rate Source Palpated -- Cardiac Regularity Regular -- BP Location Right arm Right arm BP Method Automatic Automatic BP (!) 147/83 (!) 150/95 MAP (mmHg) 97 -- O2 Device None (Room air) None (Room air) Respiratory Rate 16 16 Functional Mobility Training Supine to Sit: Independent Supine to Sit Device Used: Head of bed elevated Clinical Observation: HOB elevated, perfroms transfer supine<>sit with ease and independently, manages LLE independently, effective weight shifting and postioning Sit to Supine: Independent Additional Cueing: None Sit to Supine Device Used: Head of bed elevated Number of Staff Assisting with Sit to Supine: 0 Clinical Observation: HOB elevated, perfroms transfer supine<>sit with ease and independently, manages LLE independently, effective weight shifting and postioning Sit to Stand: Independent Additional Cueing: Verbal Sit to Stand Device Used: Walker - rolling Number of Staff Assisting with Sit to Stand: 0 Clinical Observation: cues for hand placement on seated surface during rise phase and to reach backon descent, good control and balance noted, effective weight shifting Stand to Sit: Independent Additional Cueing: None Stand to Sit Device Used: None Number of Staff Assisting with Stand to Sit: 0 Clinical Observation: cues for hand placement on seated surface during rise phase and to reach backon descent, good control and balance noted, effective weight shifting Ambulation: Modified independent, Supervision Device Used During Ambulation: Walker - rolling Number of Staff Assisting with Ambulation: 0 Ambulation Distance (Comments): 170 feet Ambulation Clinical Observation: step through gait pattern, LLE WBAT, use of RW, steady, safe, upright posture, managed directional changes well, no LH/dizziness noted Stairs: Stair Management Assistance: Independent Number of Staff Assisting with Stairs: 1 Stair Management Technique: One rail R, Step to pattern Device Used on Stairs: None Ambulating on Stairs Clinical Observation: step to pattern, effective sequencing, safe, good balance and control Number of Stairs: 2 Therapeutic Exercise: 5 repetitions each on operated lower extremity [x] Ankle Pumps x20 reps [x] Gluteal Sets [x] Quadriceps sets [x] Heel Slides ([x] Active [] Assisted) [] Straight Leg Raises ([] Active [] Assisted) [] Short Arc Knee Extensions ([] Active [] Assisted) [] Hip Abduction ([] Active [] Assisted) [] Hip Internal Rotation ([] Active [] Assisted) [] Hip External Rotation ([] Active [] Assisted) [] Sitting Knee Flexion ([] Active [] Assisted) [] Long Arc Knee Extensions ([] Active [] Assisted) Other Objective Findings/Interventions: L knee dressing: c/d/i Assessment and Plan Impression: POD#1 TKA - Dr. Ragsdale Pt seen for follow up visit in [facility]. Pt pleasant and easily agreeable to session. Pt reports well-controlled L knee pain at this time. PT providing review of all education provided regarding LLE WBAT status, use of RW, safe mobility techniques, post op exercises, follow up with FORCE del, elevation technique, no pillow or supports under L knee, use of ice machine 20 mins on/off. Pt able to demonstrate good understanding of all education provided. Pt has all necessary DME at home, will use RW on d/c. Pt performed therex as noted above, L knee ROM : 0-104, quads/hams 3/5. Pt is performing bed mobility tasks and basic transfers at an independent level. he is ambulating using RW LLE WBAT 170 feet, reciprocal step pattern, he is steady/safe. Pt able to navigate stairs as noted above at an independent level safely. VSS throughout, but BP slightly elevated, RN aware. Pt will be recuperating at his mother's house on the [facility] and she is and OT whom will be supportive to pt's needs. Pt advised to follow FORCE del, and to follow up OPPT when appropriate as VNA unable to be obtained for home visits per case management. There are no mobility or activity tolerance barriers to a safe home d/c plan. Pt left safely supine with all needs within reach. Discussed with pt/RN/WEB SERVICES PROFESSIONAL. Recommendations: Discharge, Activity, Safety, Other Consults PT Discharge Recommendation: Home PT PT Discharge Comment: Recommend pt DC home with PT services when medically cleared Safety/Fall: Falls risk Activity While in Hospital: Activity as tolerated RW with CS Positioning: no pillow or supports underneath L knee, promote TKE via towel roll uner heel Frequency of Visits: Frequency of Treatment: DC from acute PT Signature of Providing Clinician: Yasmeen Genao PT [id number] Date:PT Received On: 05/06/22 Start Time: Start Time: 709 End Time: Stop Time: 734 *The patient???s progress will be assessed at each session. The frequency may be increased or tapered as treatment progresses based on the therapist???s judgment of factors including but not limited to; co morbidities, tissue healing, patient/caregiver independent self management, ability to participate in/receive therapy due to medical stability and/or competing care priorities. Yasmeen Genao PT [id number] [place] License #[id number] Beeper #[id number] * Dhara Latham NP - 05/05/2022 7:02 PM EST Orthopedic Surgery Service Progress Note Today Date: 05/05/22 Patient Name: David Morrow Admission Date: 05/05/2022 Admitting Provider: Adriana Ragsdale MD David Morrow is a 32 y.o. male who is now s/p: Last Surgery: Date: 05/05/2022 Procedure(s): ROBOTIC ARTHROPLASTY TOTAL KNEE WITH LATERL RELEASE Subjective: No acute events, Pain controlled on current regimen, No headache, CP, SOB, N/V and Voiding independently Physical Exam: BP 123/77 Pulse 78 Temp 36.2 ??C (97.2 ??F) (Temporal) Resp 19 Ht 175.3 cm (5' 9) Wt 90.7 kg (200 lb) SpO2 97% BMI 29.53 kg/m?? Intake/Output Summary (Last 24 hours) at 05/05/2022 1902 Last data filed at 05/05/2022 1855 Gross per 24 hour Intake 2140 ml Output 600 ml Net 1540 ml General: A&O x3, NAD Skin: Warm, dry and intact, No rashes, lesions Chest: non labored breathing, lung sounds bilaterally clear to auscultation, Cardiac: Normal S1 and S2. No murmurs. Abdomen: Abdomen soft and nontender, non distended, + bowel sounds Lower Extremity: left knee with dressing covering incision. Able to SLR +SILT to DP, SP, T, S, S 5/5 Strength TA, GS, EHL, and FHL, +2 DP pulses and WWP. Ambulating with walker Assessment David Morrow is a 32 y.o. male who has a history of left knee osteoarthritis, which has failedconservative medical management, therefore was admitted to the [facility] and underwent an elective left total knee replacement on 05/05/2022 with Adriana Ragsdale MD. Day of Surgery patient doing well and pain controlled. Post-op exam unremarkable and left knee dressing c/d/i. Plan: MSK: left knee with mepilex. Dressing to be removed on POD#7. PT/OT consulted and following. WBAT OOB today Pain management: ES Tylenol 975mg Q8 hours standing. OxycodonePO 5-10 mg [id number] prn pain Decadron 10mg x2 days on POD #1 and #2 Naproxen 500mg BID for 2 weeks Neurontin 100 mg tid while in hospital followed by 100 mg nightly prn insomnia for 1 week Toradol 15 mg IV q6 hours prn pain x 2-3 doses POD #0 Will continue to monitor pain assessment. Heme/VTE prophylaxis: Trend daily labs VTE Prophylaxis (dose and discharge plan): ASA 81 mg BID for 4 wks Encourage early ambulation and SCDs. Today's INR- No results found for: INR, PTINR ID: Ancef 2gm IV x2 more doses and Vanco 1 gm IV x1 more dose for surgical prophylaxis. Pulm: No hypoxia or SOB. Encourage cough and deep breathing and use of incentive spirometry. Wean oxygen as tolerated. CV: Routine vital signs. HD stable. Check lytes and replete as needed. Monitor Hct. GI: Colace and Senna BID to prevent Narcotic associated constipation. Zofran PRN n/v. : Voiding independently Nursin g carb consistent diet, ADAT, Accuchecks QAC and QHS with Lispro sliding scale. IVF [id number] D/C planning: Likely home with PT only. Discharge when medically cleared. Code Status: Full Code Treatment plan and medications (including schedule II) were reviewed with attending physician. Dhara Latham NP Orthopedic Nurse Practitioner [facility] Pager # [phone] * Lizy Warner - 05/05/2022 1:45 PM EST Case Management - Progress Note Case Management Pre-Screening Assessment Name: aDvid Morrow : 1990 Legal Sex: Male Gender Identity: Male PATIENT INFORMATION Address: [address] [place] [address] SSN: [facility] [id number] Pref. Lang.: Macanese [facility] Y/N: Not Primary Religious: Atheist Ethnicity: Dominican Special Needs: None Race: White Marital Status: Single EMERGENCY CONTACT INFORMATION Extended Emergency Contact Information Primary Emergency Contact: Susan Morrow Address: [address] [place], [place] [address] [address] [facility] Mobile Relation: Mother PROVIDER INFORMATION Admitting Provider: Adriana Ragsdale Md Attending Provider: Adriana Ragsdale Md PCP: Shant Bradford DO PCP Referring Provider: Adriana Ragsdale Referring Provider PRIMARY INSURANCE Plan: LayarO POS SECONDARY INSURANCE Plan: Subscriber ID: Date of surgery: 05/05/2022 Surgery: L KNEE Surgeon: VICTORIA Telephone interview conducted on 05/04/2022 to review concerns, supports, level of care, and services for time of discharge. Services will be established as indicated after postsurgical PT /OT evaluations are completed. * Address where you will recuperate: [address] [place] Best contact number for additional questions? [phone] Have you had a discussion with your physician about same day discharge? Y Comments/Feedback: OVERNIGHT Who will be your support person? MOTHER Will they provide transportation? Y Alternate Transport: Do you have stairs to enter your home? N How many/rails? Additional Comments: Where is your bedroom and bathroom? First/Second Floor and additional comments: SAME LEVELS Do own any equipment? Y What type and from when/currently using? CANE, WALKER, NOT USING Have you used a VNA in the past? N (4Next list reviewed and choices offered to patient) Preferred agency? [facility] Please be aware: We do not have an outpatient pharmacy at [facility]. What pharmacy do you use? [facility], [address] Can you/family/friend make a Pharmacy stop on the way home if needed? Y Additional comments: As a reminder you will receive a phone call the day prior with surgery time, check in at registration on surgery day. You will be directed to the 6th floor OR space. Reviewed: Y *Prescreening Evaluation and Discharge Plan has been completed with patient and/or caregiver. Initial VNA referral will be initiated for discharge. Insurance and preliminary level of care reviewed with patient and/or caregiver. Case Management will continue to follow for any additional discharge planning needs. Post-acute care services are coordinated with as established in the Code of Federal Regulations - Condition of participation: Discharge planning, 482 C.F.R. ??482.43 (2019). * Lizy Warner - 05/05/2022 11:13 AM EST Case Management - Progress Note CTS Lizy Warner has notified patient that no physical therapy services are available in the [facility]. The multiple companies they were sent to were either at capacity or does not accept his [facility] insurance. Lizy Warner documented in this encounter H&P Notes * Kenny Chiu MD - 05/05/2022 12:43 PM EST [facility] ORTHOPEDICS ARTHROPLASTY SERVICE Date of Surgery: 05/05/22 [...] HISTORY: I have reviewed and updated the [facility] problem list and past medical history. [...] ALLERGIES: I have reviewed and updated the [facility] medication and allergy list. Allergies Allergen [...] 15 mg 15 mg Oral Once ??? dnarvxqratl-urvwmpiupac-thtkecrcu-ketorolac 2.46-0.005- 0.0008-0.3mg/mL PERIARTICULAR syringe 100 mL Intra-articular [...] No resident was available to help Physician Meter Reader Inspector: Mary Nava PA-C Route Sales Delivery Drivers Supervisor: Kennedy Fay MD REGISTERED NURSE STEP DOWN: Nesha Chaudhry CRNA; Juana Dubon CRNA; Iva Phillip CRNA Anesthesia Type: Spinal ASA Code: II Estimated Blood Loss: 150cc TOURNIQUET: Not applied COMPLICATIONS: None CONDITION: Stable to PACU IMPLANTS USED: Miesha Triathalon, 4 CR femur, 5 tibia, 9CS [...] knee was opened up with a laminar marine railway operator. Posterior osteophytes were removed as well as [...] medical management, therefore was admitted to the [facility] and underwent an elective left total knee replacement on 05/05/2022 with Adriana Ragsdale MD. 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 Pt was seen by PT post-op day 0 in PACU. Pt is recovering in a family home in [place] [facility] which has no HALEY and pt is able to live on [...] Signature of Providing Clinician: Isis Sarmiento, [place] [id number] Date:05/05/22 Start Time: 1909 End Time: 1937 [...] above procedure by Adriana Ragsdale MD at [facility] on 05/05/2022. The patient tolerated the [...] THROUGHPUT TECH Routine 05/05/2022 2:05 PM EST WV TOTAL KNEE ARTHROPLASTY 05/05/2022 1:08 PM EST [...] EST) WBC 18.86(H) 4.00 - 10.90 K/uL [facility] RBC 4.68 4.50 - 6.40 M/uL [facility] HGB 14.5 13.5 - 18.0 g/dL [facility] HCT 42.0 40.0 - 54.0 % [facility] PLT 227 150 - 450 K/uL [facility] MCV 89.7 80.0 - 100.0 fL [facility] MCH 31.0 27.0 - 32.0 pg [facility] MCHC 34.5 32.0 - 36.0 g/dL [facility] RDW 11.6 11.5 - 14.5 % [facility] MPV 10.8 8.4 - 12.0 fl [facility] NRBC 0.00 0.00 /100 WBCs [facility] ABSOLUTE NRBC 0.00 0.00 K/uL [facility] Blood 05/06/2022 6:40 AM EST 05/06/2022 7:20 AM EST Kenny Chiu MD LAB BLOOD O RDERABLES [place] [id number] [place] [address] * (ABNORMAL) Basic metabolic panel (05/06/2022 6:40 AM EST) SODIUM 136 136 - 145 mmol/L [facility] CHLORIDE 100 98 - 107 mmol/L [facility] POTASSIUM 4.2 3.4 - 5.0 mmol/L [facility] Comment:HEMOLYSIS_INDEX_OF_9 3,INTERPRET_WITH_CAUTION CO2 26 22 - 31 mmol/L [facility] BUN 11 6 - 23 mg/dL [facility] CREATININE 1.13 0.50 - 1.20 mg/dL [facility] HOSPITAL GLUCOSE 169(H) 70 - 115 mg/dL [facility] CALCIUM 9.4 8.6 - 10.7 mg/dL [facility] EGFR 89 >60 mL/min/1.7 3m2 [facility] Comment:Estimated glomerular filtration rate calculated using the CKD-EPI refit equation. ANION GAP 10 3 - 15 mmol/L [facility] Blood 05/06/2022 6:40 AM EST 05/06/2022 7:20 AM EST Kenny Chiu MD LAB BLOOD O RDERABLES [facility] [address] [place] [address] * XR KNEE 1-2 VIEWS (LEFT) (05/05/2022 [...] PCR SARS-CoV-2 not detected SARS-CoV-2 not detected [facility] Source AN SWAB [facility] 05/05/2022 2:05 PM EST 05/05/2022 2:34 PM EST Adriana Ragsdale MD BODY FLUIDS AND STOO LS ORDERABLES Performing Organization Address [facility] Co de Phone Number [address] [address] * COVID-19 Antigen (Flowflex), Nasal Swab (05/05/2022 12:46 PM EST) SARS-CoV-2 (COVID-19) antigen NEGATIVE - Internal QCs acceptable NEGATIVE - Internal QCs acceptable [facility] Adriana Ragsdale MD POINT OF CARE TEST O RDERABLES Performing Organization Address [facility] Co de Phone Number [address] [address] documented in this encounter Visit Diagnoses Diagnosis S/P TKR (total knee replacement) using cement, left- Primary S/P TKR (total knee replacement) using cement, left Primary osteoarthritis of left knee documented in this encounter Admitting Diagnoses Diagnosis [...] Given 05/05/2022 11:57 PM EST 10 mg puamqbujank-jqsiywodauu-ckm nidine-ketorolac 2.46-0.005- 0.0008-0.3mg/mL PERIARTICULAR syringe 100 mL, Intra-articular, Once, On Wed05/05/22 at 1315, For 1 dose, Pre-op (day of) Given 05/05/2022 2:49 PM EST 100 mL Surgical Site senna (SENOKOT) tablet 2 tablet 2 tablet, [...] 2356 (Given - Provider: Emily Zambrano RN) 0623 (Given - Provider: Emily Zambrano RN) aspirin EC tablet 81 mg 81 mg, Oral, 2 times daily, First dose on Wed05/05/22 at 2100, Administer with water, food, or milk to decrease GI upset. 2357 (Given - Provider: Emily Zambrano RN) 0624 (Given - Provider: Emily Zambrano RN) ceFAZolin (ANCEF) 2 gram/50 mL in dextrose IVPB premix (COMPLETED) 2 g, Intravenous, Administer over 30 Minutes, at 100 mL/hr, Every 8 hours, First dose on Wed05/05/22 at 2200, For 2 doses, Recovery & Post-op, Indication: Prophylaxis, at risk for:, Infection Source: Surgical Prophylaxis 2356 (New Bag - Provider: Emily Zambrano RN) 0626 (New Bag - Provider: Emily Zambrano RN) [...] 2357 (Given - Provider: Emily Zambrano RN) 0624 (Given - Provider: Emily Zambrano RN) famotidine [...] (day of) 1249 (Given - Provider: Gorge Ruhterford RN) lactated ringers IV Bolus 1,000 mL [...] (Given - Provid er: Emily Zambrano RN) gpwvwyxemci-wzuudydedhk-zkqq idine-ketorolac 2.46-0.005- 0.0008-0.3mg/mL PERIARTICULAR syringe (COMPLETED) 100 [...] PO. documented in this encounter Care Teams Customer Contact Sales Associate Relationship Specialty Start Date End Date Shant Bradford DO [address] [place] [address] PCP - General 07/16/20 documented as of this encounter Additional Source Comments The information contained in this document represents components of the legal health record. It is not the complete legal health record.[facility]
--- OUTSIDE RECORDS SUMMARY | 2023-11-23 18:40 | XMS_ITS | Encounter Summary ---
Author Organization [facility] Address [phone] [place] [address] Care Team Providers Care Credit Associate Name Role Phone Shant Bradford DO Primary Care Provider + Reason for Visit * Consultation (Routine) - Closed Specialty Diagnoses / Procedures Referred By Contac t Referred To Contact Orthopedic Surgery / Orthopedics Diagnoses Bilateral knee pain Bilateral knees. pt bringing XR and MRI on CD Procedures NEW ORTHO II Shant Bradford DO [address] [place] [address] Delvis Kuhn MD [address] [place] [address] Email: [email or web address] Referral ID Status Reason Start Date Expiration Date Visits Re quested Visits Authorized [id number] Closed 07/24/2020 07/23/2021 6 6 Encounter Details Date Type Department Care Team (Late Contact Info) Description 02/10/2021 2:00 PM EDT Telemedicine [facility] Orthopedics at [address] [address] Delvis Kuhn MD [address] [place] [address] [email or web address] Articular cartilage disorder of knee, unspecified laterality (Primary Dx); Instability of knee joint, unspecified laterality Social History Tobacco Use Types Packs/Day Years Used Date Smoking Tobacco: Never Smokeless Tobacco: Never Sex and Gender Information Value Date Recorded Sex Assigned at Male 07/16/2020 11:01 AM EST Gender Identity Male 07/16/2020 11:01 AM EST Sexual Orientation Straight 07/16/2020 11 :01 AM EST documented as of this encounter Progress Notes * Delvis Kuhn MD - 02/10/2021 2:00 PM EDT Images from the original note were not included. Delvis Kuhn M.D. [facility] Chief, Sports Medicine [address] [facility] Director, [place] [address] F: [phone] Fidelina Joe PA-C David Morrow 02/10/21 1990 Chief Complaint: bilaterally knee pain INTERVAL HISTORY: David Morrow presents for a virtual video visit for the following medical conditions. This virtual visit is being used during the - crisis in place of an in-person visitand will be billed in a similar fashion. Kunal is connecting today after he has had both MRis and his LLA film. Kunal is currently in a position where he cannot go down hills, he ambulates ok on flat surfaces butuses two ACL braces. He has pain and swelling on a daily basis. He is personally not ready to do any surgical interventions until about 4-6 months from now due to a sick family members that he needs to be available for. His MRI's show a disturbing picture: LEft knee Mri: Anteriorly subluxed tibia, severe chondral wear medial tibia with subchondrla bone bruising and subchondral cysts, lateral tibial condyle with chondral loss and subchodnrla jessica, lateral femur with chondral edema, Medial meniscus compeltely absen and medial deep MCL compromised, ACL is missing Right knee MRI: This is almost a mirror image of the left knee. The emdial sided wear is a little less pronounce dand the ACL appears partially patent and he has no anterior subluxation of the tibia. He has bilaterla valgus deformity 4degrees on the right and 6 degrees on the left I had a long discussion with him about options. I would like to discuss this with our international cartilage group to see if anyone has any suggestions. My current thought is that he is basically in need of a TKA but at age 31 he is too young. I will get back to him after the discussion in the cartilage group SOCIAL HISTORY: Social History Socioeconomic History ??? Marital status: Single Spouse name: Not on file ??? Number of children: Not on file ??? Years of education: Not on file ??? Highest education level: Not on file Occupational History ??? Not on file Tobacco Use ??? Smoking status: Never Smoker ??? Smokeless tobacco: Never Used Substance and Sexual Activity ??? Alcohol use: Not on file ??? Drug use: Not on file ??? Sexual activity: Not on file Other Topics Concern ??? Not on file Social History Narrative ??? Not on file Social Determinants of Health Social determinant risk not applicable to this patient. ROS: All negative PHYSICAL EXAM: Patient is a male; alert and oriented, in no acute distress. Well developed, appropriate affect. ??? Minutes: 15 minutes was spent on the virtual video call which was necessary to formulate the impression and plan ??? Provider is performing virtual visit from [place] and patient is a resident of [address] [place] [address] Delvis Kuhn MD ATTENDING This note was dictated using [employer] software. While it was briefly proofread prior to completion, some grammatical, spelling, and word choice errors due to dictation may still occur. I discussed the benefits and risks of [facility]'s Virtual Visit program today with the patient, and explained that can follow up with me in person or by virtual visit and the patient understands this and would like to proceed knowing the following about the visits, including: -staying in touch me is important, and that virtual care is a supplement to, and not a replacement of, in-person care -we will protect the privacy and security of the patient's protected health information (PHI), but that as with any electronic transmission, the privacy and security of my PHI cannot be guaranteed -the patient should conduct the virtual visit in a private and secure place, so that others cannot see or hear the PHI discussed -the patient is responsible for calling me with any clinical questions or concerns in between virtual visits -for medical emergencies, the patient will call 911 immediately -the patient and I each have the right to discontinue the virtual visit program at any time -the patient may be asked to pay a fee or co-pay for in-person and virtual visits documented in this encounter Plan of Treatment Not on file documented as of this encounter Visit Diagnoses Diagnosis Articular cartilage disorder of knee, unspecified laterality- Primary Instability of knee joint, unspecified laterality documented in this encounter Care Teams Credit Associate Relationship Specialty Start Date End Date Shant Bradford DO [address] [place] [address] PCP - General 07/16/20 documented as of this encounter Additional Source Comments The information contained in this document represents components of the legal health record. It is not the complete legal health record.[facility]
--- OUTSIDE RECORDS SUMMARY | 2023-11-23 18:40 | XMS_ITS | Encounter Summary ---
Author Organization [facility] Address [phone] [place] [address] Care Team Providers Care Technical Sales Representatives Name Role Phone Shant Bradford DO Primary Care Provider + Reason for Visit * Consultation (Routine) - Closed Specialty Diagnoses / Procedures Referred By Charla t Referred To Contact Orthopedic Surgery / Orthopedics Diagnoses f/up after CL discussion international cartilage group to see if anyone has any suggestions. Procedures VIRTUAL ESTABLISHED Shant Bradford DO [address] [place] [address] Delvis Kuhn MD [address] [place] [address] Email: [email or web address] Referral ID Status Reason Start Date Expiration Date Visits Re quested Visits Authorized [id number] Closed 08/25/2021 08/25/2022 6 6 Encounter Details Date Type Department Care Team (Latest Contact Info) Description 12/18/2021 8:00 AM EDT Telemedicine - audio only [facility] Orthopedics at [address] [address] Mary Nava, PA-C [address] [place] [address] [email or web address] Post-traumatic osteoarthritis of both knees (Primary Dx) Social History Tobacco Use Types Packs/Day Years Used Date Smoking Tobacco: Never Smokeless Tobacco: Never Sex and Gender Information Value Date Recorded Sex Assigned at Male 07/16/2020 11:01 AM EST Gender Identity Male 07/16/2020 11:01 AM EST Sexual Orientation Straight 07/16/2020 11 :01 AM EST documented as of this encounter Progress Notes * Mary Nava PA-C - 12/18/2021 8:00 AM EDT Images from the original note were not included. Adriana Ragsdale MD, ASHLEY Director of Research, Arthroplasty Services [facility] David Morrow DATE OF : 1990 DATE OF SERVICE: 12/18/21 PCP: ?Shant Bradford, DO [address] [facility] [address] Referring Physician: Shant Bradford, DO [address] [place] [address] This is a Telephone VIRTUAL VISIT: Patient is verbally consented for this virtual visit. DIAGNOSIS: 1. Post-traumatic osteoarthritis of both knees ? HPI: This patient presents from home today for a visit to discuss her upcoming surgery. Patient originally scheduled for March 11 which she will we no longer have that date for surgery. I talked to patient about saving him a day for April 15 for the left knee replacement Scott. Patient agree with the change of plan. Patient has some question regarding preop rehab as well as surgery and leg length difference bilateral knee issues with the postop rehab after the left knee replacement. we talked about things that patient can do and cannot do after surgery and regarding to motion as well as sports and activities. ?IMAGING: X-rays not done today ? Plan: Patient understand the detail of some of the question regarding the pre and postop recovery. I signed patient to enforce for preop for bilateral knee. all questions were answered and the patient will follow-up Postoperatively. ? We spent total of 35 minutes for the visit. This patient was seen by Mary Nava PA-C, no MD present today. This note was dictated using [employer] software. While it was briefly proofread prior to completion, some grammatical, spelling, and word choice errors due to dictation may still occur. No questionnaires available. documented in this encounter Plan of Treatment Not on file documented as of this encounter Visit Diagnoses Diagnosis Post-traumatic osteoarthritis of both knees- Primary documented in this encounter Care Teams Technical Sales Representatives Relationship Specialty Start Date End Date Shant Bradford DO [address] [place] [address] PCP - General 07/16/20 documented as of this encounter Additional Source Comments The information contained in this document represents components of the legal health record. It is not the complete legal health record.[facility]
--- OUTSIDE RECORDS SUMMARY | 2023-11-23 18:40 | XMS_ITS | Encounter Summary ---
Author Organization [facility] Address [phone] [facility] [place] [address] Care Team Providers Care Lumber Puller Name Role Phone Shant Bradford DO Primary Care Provider + Reason for Referral * MRI/CAT Scan - Closed Specialty Diagnoses / Procedures Referred By Contac t Referred To Contact Radiology Diagnoses Chronic pain of left knee Procedures CT Knee (Left) CHG CT SCAN,LOWER EXTREMITY,W/O CONTRAST Adriana Ragsdale MD [address] [place] [address] Email: [email or web address] [place] [address] Referral ID Status Reason Start Date Expiration Date Visits Re quested Visits Authorized [id number] Closed 03/25/2022 05/25/2022 2 2 Encounter Details Date Type Department Care Team ([facility] Contact Info) Description 03/05/2022 Orders Only [facility] Department of Orthopaedics [address] [place] [address] Adriana Ragsdale MD [address] [place] [id number] [email or web address] Chronic pain of left knee (Primary [...] documented as of this encounter Results * CT KNEE WITHOUT [...] knee documented in this encounter Care Teams Lumber Puller Relationship Specialty Start Date End Date Shant Bradford DO [address] [place] [address] PCP - General 07/16/20 documented as of this encounter Additional Source Comments The information contained in this document represents components of the legal health record. It is not the complete legal health record.[facility]
--- OUTSIDE RECORDS SUMMARY | 2023-11-23 18:40 | XMS_ITS | Encounter Summary ---
Author Organization [facility] Address [phone] [facility] [place] [address] Care Team Providers Care Public Service Director Name Role Phone Shant Bradford DO Primary Care Provider + Encounter Details Date Type Department Care Team ([facility] Contact Info) Description 03/05/2022 Procedure [facility] Radiology [address] [place] [address] Social History Tobacco Use Types Packs/Day Years [...] on filedocumented in this encounter Care Teams Public Service Director Relationship Specialty Start Date End Date Shant Bradford DO [address] [place] [address] PCP - General 07/16/20 documented as of this encounter Additional Source Comments The information contained in this document represents components of the legal health record. It is not the complete legal health record.[facility]
--- OUTSIDE RECORDS SUMMARY | 2023-11-23 18:40 | XMS_ITS | Encounter Summary ---
Author Organization [facility] Address [phone] [facility] [address] Care Team Providers Care Parts Interpreter Name Role Phone Shant Bradford DO Primary Care Provider + Reason for Visit * Consultation (Routine) - Closed Specialty Diagnoses / Procedures Referred By Charla t Referred To Contact Orthopedic Surgery / Orthopedics Diagnoses f/up after CL discussion international cartilage group to see if anyone has any suggestions. Procedures VIRTUAL ESTABLISHED Shant Bradford DO [address] [place] [address] Delvis Kuhn MD [address] [place] [address] Email: [email or web address] Referral ID Status Reason Start Date Expiration Date Visits Re quested Visits Authorized [id number] Closed 08/25/2021 08/25/2022 6 6 Encounter Details Date Type Department Care Team (Latest Contact Info) Description 08/25/2021 1:45 PM EDT Telemedicine [facility] Orthopedics at [address] [address] Delvis Kuhn MD [address] [place] [address] [email or web address] Primary localized osteoarthrosis of lower leg, unspecified laterality (Primary Dx) Social History Tobacco Use Types Packs/Day Years Used Date Smoking Tobacco: Never Smokeless Tobacco: Never Sex and Gender Information Value Date Recorded Sex Assigned at Male 07/16/2020 11:01 AM EST Gender Identity Male 07/16/2020 11:01 AM EST Sexual Orientation Straight 07/16/2020 11 :01 AM EST documented as of this encounter Progress Notes * Delvis Kuhn MD - 08/25/2021 1:45 PM EDT Images from the original note were not included. Delvis Kuhn M.D. [facility] Chief, Sports Medicine [address] [place] [address] Director, [facility] [place] [address] F: [phone] Fidelina Joe PA-C David Morrow 09/10/21 1990 Chief Complaint: bilaterally knee pain INTERVAL HISTORY: David Morrow presents for a virtual video visit for the following medical conditions. This virtual visit is being used during the - crisis in place of an in-person visitand will be billed in a similar fashion. Kunal has bilateral knee severe PTOA and despite best intentions on the part of regenerative medicine, I do not believe that a regenerative approach can resolve his issues. I think that he needs bilateral knee TKA' s I had a long discussion with him about this and he understands. SOCIAL HISTORY: Social History Socioeconomic History ??? [...] Not on file Social Determinants of Health ROS: All negative PHYSICAL EXAM: Patient is a male; alert and oriented, in no acute distress. Well developed, appropriate affect. ??? Minutes: 15 minutes was spent on the virtual video call which was necessary to formulate the impression and plan ??? Provider is performing virtual visit from [place] and patient is a resident of [address] [place] [address] Delvis Kuhn MD ATTENDING This note was dictated using [employer] software. While it was briefly proofread prior to completion, some grammatical, spelling, and word choice errors due to dictation may still occur. I discussed the benefits and risks of [facility]'s Virtual Visit program today with the patient, [...] as of this encounter Visit Diagnoses Diagnosis Primary localized osteoarthrosis of lower leg, unspecified laterality- Primary documented in this encounter Care Teams Parts Interpreter Relationship Specialty Start Date End Date Shant Bradford DO [address] [place] [address] PCP - General 07/16/20 documented as of this encounter Additional Source Comments The information contained in this document represents components of the legal health record. It is not the complete legal health record.[facility]
--- OUTSIDE RECORDS SUMMARY | 2023-11-23 18:40 | XMS_ITS | Encounter Summary ---
Author Organization [facility] Address [phone] [place] [address] Care Team Providers Care Drywall Hanger Framer Name Role Phone Shant Bradford DO Primary Care Provider + Reason for Visit * Auth/Cert Specialty Diagnoses / Procedures Referred By Raduac t Referred To Contact Diagnoses Primary osteoarthritis of left knee Left Total Knee Replacement Scott Lateral Release Procedures WI TOTAL KNEE ARTHROPLASTY ROBOTIC ARTHROPLASTY TOTAL KNEE WITH LATERL RELEASE Referral ID Status Reason Start Date Expiration Date Visits Re quested Visits Authorized [id number] 1 1 Encounter Details Date Type Department Care Team (Late Contact Info) Description 05/05/2022 1:31 PM EST Anesthesia Event [facility] Periop 6th floor [address] [place] [address] Kennedy Fay MD [address] [place] [address] Department of Anesthesiology-[address] [address] [email or web address] Anesthesia Record Procedure Summary Procedure Name Responsible Anesthesiologist Anesthesia Start Time Anesthesia Stop Time ROBOTIC ARTHROPLASTY TOTAL KNEE WITH LATERL RELEASE (Left) Kennedy Fay MD 05/05/22 1331 05/05/22 1710 Events Date Time Event Comment 05/05/2022 1316 1331 An Start 1341 In Room 1342 An Start Data 1353 An Induction 1355 An Induction complet 1415 Procedure Start 1415 Incision 1435 Quick Note Pericapsular in jection by Surgeon 1702 Procedure End 1706 Out of Room 1707 an stop data 1710 An Stop Meds Name Total midazolam (PF) 1 mg/mL injection 4 mg propofol (DIPRIVAN) INFUSION 10 mg/mL 2, 122.38 mg propofol (DIPRIVAN) BOLUS 10 mg/mL 50 mg dexamethasone (4 mg/mL) 10 mg ceFAZolin (ANCEF) IVPB 2 g in D5W 50 mL (Premix) 2 g tranexamic acid (CYKLOKAPRON) IVPB in NS 1000 mg/100 mL (Premix) 2,000 mg lidocaine (XYLOCAINE) syringe 2% 100 mg/ 5 mL (PF) 40 mg ketamine (KETALAR) IV syringe in NS 10 m g/mL 40 mg ropivacaine 0.5% (PF) 3 mL dexmedeTOMIDine 4 mcg/mL 8 mcg lactated Ringers infusion 900 mL * Agents Name CO2 insp N2O exp O2 exp N2O O2 Flow (aux) N2O insp Air O2 Flow (fresh gas) * Blood No blood administrations on file. Lines, Drains, and Airways Type Details Placement Removal Incision/Surgical Site 05/05/22; Left; Knee 04/10 11/28 0000 by Irma Valadez RN Peripheral IV Placement Date: 04/10 11/28; Placement Time: 1250; Size: 20 G; Orientation: Right; Location: Hand; Site Prep: Chlorhexidine ; Local Anesthetic: None; Attempts: 1; Patient Tolerance: Tolerated well; Removal Date: 05/06/22; Removal Time: 912; Removal Reason: End of therapy 05/05/22 1251 by Gorge Rutherford RN 05/06/22 0913 by Santiago Mckenna RN documented in this encounter Social History Tobacco [...] AM EST documented as of this encounter Procedure Notes * Juana Dubon CRNA - 05/05/2022 2:17 PM ESTAssociated Order(s): Spinal Spinal Placement Procedure Note: Performed by: fellow/resident/WOOD TILE INSTALLATION HELPER Anesthesiologist: Kennedy Fay MD Fellow/Resident/WOOD TILE INSTALLATION HELPER: Juana Dubon CRNA [place] Protocol performed: consent obtained, patient identified with 2 identifiers, correct procedure verified, correct site and laterality confirmed, verified equipment, coagulation status reviewed and implant history reviewed. Procedure details: Patient position: sitting Prep: chloraprep Approach: midline Location: L4-5 Needle: Needle type: Gurinder Needle gauge: 25 Needle length: standard CSF was aspirated Outcome: Blood aspirated? no Paresthesia: no documented in this encounter OR Notes * Anesthesia Postprocedure Evaluation - Iva Phillip CRNA - 05/05/2022 5:40 PM EST Anesthesia Post Operative Note Anesthesia Type: spinal Patient evaluated in: PACU Consciousness: awake Airway/ Respiratory Status: Airway adjuncts: no airway adjuncts. Respiratory Status: no airway complications. Supplemental O2: face mask Nausea/ Vomiting: Nausea and vomiting control satisfactory Hydration status: adequate Analgesia/ Pain: Pain control is: adequate Vital Signs: Post-procedure vital signs reviewed Epidural/ Spinal/ Regional Block: Regional anesthesia type: spinal block Sensory exam: diminished as expected Motor exam: diminished as expected Block complications: no block complications Other: Patient experienced no anesthesia complications. Patient satisfied with anesthesia care. PACU Discharge Disposition: Planned inpatient Entered by: Iva Phillip CRNA Vital Signs: Vitals Value Taken Time Pulse 80 05/05/22 1740 BP 117/63 05/05/22 1730 SpO2 100 % 05/05/22 1740 Resp 22 05/05/22 1740 Temp 36.2 ??C (97.2 ??F) 05/05/22 1709 Vitals shown include unvalidated device data. No vitals data found for the desired time range. * Anesthesia Preprocedure Evaluation - Juana Dubon CRNA - 04/28/2022 10:42 AM EST Images from the original note were not included. Patient: David Morrow Procedure: ROBOTIC ARTHROPLASTY TOTAL KNEE WITH LATERL RELEASE (Left) Surgeon(s): Adriana Ragsdale MD Planned date of procedure: 05/05/2022 General: Patient snapshot reviewed. 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, no hospitlizations No date: Depressive disorder No date: Gastroesophageal reflux disease Comment: controlled with omeprazole - Past Surgical History: No date: ANTERIOR CRUCIATE LIGAMENT REPAIR; Left No date: COLONOSCOPY No date: KNEE ARTHROSCOPY; Bilateral Comment: multiple on each knee No date: MENISCECTOMY; Left No date: UPPER GASTROINTESTINAL ENDOSCOPY - Review of patient's family history indicates: - Social History: Social History Tobacco Use Smoking status: Never Smokeless tobacco: Never Alcohol use: Not Currently Alcohol/week: 1.0 - 2.0 standard drink Types: 1 - 2 Cans of beer per week Comment: 4-6 a month Drug use: Yes Frequency: 7.0 times per week Types: Marijuana Comment: smoking at night for sleep - Exercise Tolerance: METS scale is >=4. Exercise tolerance: Able to climb 2 flights of stairs without stopping. Additional Anesthesia History Information: Hx of extremely high requirements/ineffective sedation as per patient. Occasionally combative on emergence Additional ROS/Med History Daily frequent marijuana, most recently last night midnight Ht 176.5 cm (5' 9.5) Wt 90.7 kg (200 lb) BMI 29.11 kg/m?? Body mass index is 29.11 kg/m??. unknown Medication List Accurate as of April 28, 2022 10:42 AM. If you have any questions, ask your nurse or doctor. CONTINUE taking these medications cetirizine 10 MG tablet Commonly known as: ZyrTEC Notes to patient: Take morning of surgery with small sip of water. cyclobenzaprine 5 MG tablet Commonly known as: FLEXERIL Notes to patient: Take morning of surgery with small sip of water. omeprazole 10 MG capsule Commonly known as: PriLOSEC Notes to patient: Take morning of surgery with small sip of water. sertraline 50 MG tablet Commonly known as: ZOLOFT Notes to patient: Take morning of surgery with small sip of water. Past Medical History: Diagnosis Date ??? Anxiety ??? 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 Depressive disorder ??? Gastroesophageal reflux disease controlled with omeprazole Past Surgical History: Procedure Laterality Date ??? ANTERIOR CRUCIATE LIGAMENT REPAIR Left ??? COLONOSCOPY ??? KNEE ARTHROSCOPY Bilateral multiple on each knee ??? MENISCECTOMY Left ??? UPPER GASTROINTESTINAL ENDOSCOPY Social History Socioeconomic History ??? Marital status: Single Spouse name: Not on file ??? Number of children: Not on file ??? Years of education: Not on file ??? Highest education level: Not on file Occupational History ??? Not on file Tobacco Use ??? Smoking status: Never ??? Smokeless tobacco: Never Substance and Sexual Activity ??? Alcohol use: Not Currently Alcohol/week: 1.0 - 2.0 standard drink Types: 1 - 2 Cans of beer per week Comment: 4-6 a month ??? Drug use: Yes Frequency: 7.0 times per week Types: Marijuana Comment: smoking at night for sleep ??? Sexual activity: Not on file Other Topics Concern ??? Not on file Social History Narrative ??? Not on file Social Determinants of Health Family History Problem Relation Age of Onset ??? Anesthesia problems Neg Hx ??? Malig Hyperthermia Neg Hx ??? Pseudochol deficiency Neg Hx Physical Exam Airway: Mallampati score: II. Neck ROM is full. Mouth opening: normal. Dental: No notable dental hx. Cardiovascular: The cardiovascular exam is normal. Pulmonary: The pulmonary exam is normal. Neurological: The neurological exam is normal. Other Physical Exam Findings: Comment: Anxious Vital Signs (imported from record): Ht 175.3 cm (5' 9) Wt 90.7 kg (200 lb) BMI 29.53 kg/m?? - Lab Results (imported from record): CBC: Lab Results Component Value Date WBC 8.35 04/10/2022 RBC 5.09 04/10/2022 HGB 15.6 04/10/2022 HCT 46.0 04/10/2022 PLT 237 04/10/2022 MCV 90.4 04/10/2022 MCH 30.6 04/10/2022 MCHC 33.9 04/10/2022 RDW 11.3 (L) 04/10/2022 MVP 10.7 04/10/2022 NRBCA 0.00 04/10/2022 - BMP: Lab Results Component Value Date NA 136 04/10/2022 K 4.5 04/10/2022 CL 102 04/10/2022 CO2 24 04/10/2022 BUN 15 04/10/2022 CRE 0.82 04/10/2022 GLU 89 04/10/2022 CA 10.1 04/10/2022 GFR 120 04/10/2022 ANION 10 04/10/2022 - LFTs: Lab Results Component Value Date ALB 4.7 04/10/2022 TBILI 0.5 04/10/2022 SGOT 28 04/10/2022 SGPT 23 04/10/2022 TP 7.6 04/10/2022 GLOB 2.9 04/10/2022 - Type and Screen: No results found for: ABO, RHTYPE, ABSCRN- COAGS: No results found for: PT, INR, PTT, FIB, ACT- Relevant Problems GI/HEPATIC (+) Gastroesophageal reflux disease Anesthesia Assessment and Plan ASA physical status: 2 Primary anesthetic: spinal Airway: The plan for the airway is: natural. Monitoring/Lines: The plan for monitoring and lines is: standard monitor. Post-op destination/disposition: PACU Informed Consent: Anesthetic plan and risks discussed with: patient. Final anesthesia plan to be determined on the day of surgery by the primary anesthesia team documented in this encounter Plan of Treatment Not on file documented as of this encounter Procedures Procedure Name Priority Date/Time Associated Diagnosis Comments ANES SPINAL Routine 05/05/2022 2:17 PM EST documented in this encounter Results * Spinal (05/05/2022 2:17 PM EST) Narrative Juana Dubon CRNA - 05/05/2022 2:17 PM EST Juana Dubon CRNA ? 05/05/2022 ??2:17 PM Spinal Placement Procedure Note: Performed by: fellow/resident/WOOD TILE INSTALLATION HELPER Anesthesiologist: Kennedy Fay MD Fellow/Resident/WOOD TILE INSTALLATION HELPER: Juana Dubon CRNA Somers Protocol performed: consent obtained, patient identified with 2 identifiers, correct procedure verified, correct site and laterality confirmed, verified equipment, coagulation status reviewed and implant history reviewed. Procedure details: Patient position: sitting Prep: chloraprep Approach: midline Location: L4-5 Needle: Needle type: Gurinder Needle gauge: 25 Needle length: standard CSF was aspirated Outcome: Blood aspirated? no Paresthesia: no Kennedy Fay MD [place] ANESTHESIA documented in this encounter Visit Diagnoses Not on filedocumented in this encounter Administered Medications Inactive Administered Medications - up to 3 most recent administrations Medication Order MAR Action Action Date Dose Rate Site ceFAZolin (ANCEF) 2 gram/50 mL in dextrose IVPB premix Intravenous, Administer over 30 Minutes, As needed, Starting on 05/05/22 at 1357, Anesthesia Intra-op Given 05/05/2022 1:57 PM EST 2 g dexAMETHasone (DECADRON) injection Intravenous, As needed, Starting on Wed05/05/22 at 1402, Anesthesia Intra-op Given 05/05/2022 2:02 PM EST 10 mg dexmedeTOMIDine (PRECEDEX) infusion premix Intravenous, As needed, Starting on Wed05/05/22 at 1649, Anesthesia Intra-op Given 05/05/2022 4:49 PM EST 8 mcg ketamine (KETALAR) 10 mg/mL in NS IV syringe Intravenous, As needed, Starting on 05/05/22 at 1353, Anesthesia Intra-op Given 05/05/2022 3:23 PM EST 20 mg Given 05/05/2022 1:53 PM EST 20 mg lactated Ringers infusion 20 mL/hr, Intravenous, Continuous, Starting on 05/05/22 at 1315, Pre-op (day of) Restarted 05/05/2022 5:03 PM EST New Bag 05/05/2022 12:49 PM EST 20 mL/hr 20 mL/hr lidocaine (PF) (XYLOCAINE) 2% syringe Intravenous, As needed, Starting on 05/05/22 at 1353, Anesthesia Intra-op Given 05/05/2022 1:53 PM EST 40 mg midazolam (PF) (VERSED) injection Soln Intravenous, As needed, Starting on 05/05/22 at 1339, Anesthesia Intra-op Given 05/05/2022 1:45 PM EST 2 mg Given 05/05/2022 1:39 PM EST 2 mg propofol (DIPRIVAN) infusion Intravenous, Continuous PRN, Starting on Wed05/05/22 at 1353, Anesthesia Intra-op Rate/Dose Change 05/05/2022 4:49 PM EST 100 mcg/kg/min 54.42 mL/hr New Bag 05/05/2022 1:53 PM EST 125 mcg/kg/min 68.025 mL /hr propofol (DIPRIVAN) injection Intravenous, As needed, Starting on Wed05/05/22 at 1353, Anesthesia Intra-op Given 05/05/2022 1:53 PM EST 50 mg ropivacaine (PF) (NAROPIN) 0.5% injection Spinal, As needed, Starting on Wed05/05/22 at 1349, Anesthesia Intra-op Given 05/05/2022 1:49 PM EST 3 mL tranexamic acid (CYCLOKAPRON) 1,000 mg/100 mL (10 mg/mL) in NS IVPB premix PgBk Intravenous, Administer over 10 Minutes, As needed, Starting on Wed05/05/22 at 1402, Anesthesia Intra-op Given 05/05/2022 4:28 PM EST 1,000 mg Given 05/05/2022 2:02 PM EST 1,000 mg documented in this encounter Care Teams Drywall Hanger Framer Relationship Specialty Start Date End Date Shant Bradford DO [address] [place] [address] PCP - General 07/16/20 documented as of this encounter Additional Source Comments The information contained in this document represents components of the legal health record. It is not the complete legal health record.[facility]
--- OUTSIDE RECORDS SUMMARY | 2023-11-23 18:40 | XMS_ITS | Encounter Summary ---
Author Organization [facility] Address [phone] [place] [address] Care Team Providers Care Electrical Discharge Machine Operator Name Role Phone Shant Bradford DO Primary Care Provider + Reason for Referral * Consultation (Routine) - Closed Specialty Diagnoses / Procedures Referred By Contac t Referred To Contact Orthopedics Diagnoses Primary localized osteoarthrosis of lower leg, unspecified laterality Fidelina Pino PA-C [address] [place] [address] Department of Orthopedic Surgery [place], [place] Email: [email or web address] Adriana Ragsdale MD [address] [place] [address] Email: [email or web address] Referral ID Status Reason Start Date Expiration Date Visits Re quested Visits Authorized [id number] Closed 11/03/2021 11/03/2022 6 6 Encounter Details Date Type Department Care Team (Late st Contact Info) Description 09/29/2021 Orders Only [facility] Orthopedics at [address] [address] Fidelina Pino PA-C [address] [place] [address] Department [place] [address] [email or web address] Primary localized osteoarthrosis of lower leg, unspecified [...] Diagnoses Orde r Schedule Ambulatory referral to [facility] Orthopedics Outpatient Referral Routine Primary localized osteoarthrosis of lower leg, unspecified laterality Ordered: 09/29/2021 documented as of this encounter Visit Diagnoses Diagnosis Primary localized osteoarthrosis of lower leg, unspecified laterality- Primary documented in this encounter Care Teams Electrical Discharge Machine Operator Relationship Specialty Start Date End Date Shant Bradford DO [address] [place] [address] PCP - General 07/16/20 documented as of this encounter Additional Source Comments The information contained in this document represents components of the legal health record. It is not the complete legal health record.[facility]
--- OUTSIDE RECORDS SUMMARY | 2023-11-23 18:40 | XMS_ITS | Encounter Summary ---
Author Organization [facility] Address [phone] [facility] [place] [address] Care Team Providers Care Logistics Assistant Name Role Phone Shant Bradford DO Primary Care Provider + Encounter Details Date Type Department Care Team (Late st Contact Info) Description 11/19/2021 Orders Only [facility] Department of Orthopaedics [address] [place] [address] Mary Nava, PAAlexaC [address] [place] [address] [email or web address] Post-traumatic osteoarthritis of both knees (Primary Dx) [...] documented as of this encounter Results * Comprehensive metabolic panel (04/10/2022 12:40 PM EST) SODIUM 136 136 - 145 mmol/L [facility] POTASSIUM 4.5 3.4 - 5.0 mmol/L [facility] Comment:HEMOLYSIS_INDEX_OF_3 5,INTERPRET_WITH_CAUTION CHLORIDE 102 98 - 107 mmol/L [facility] CO2 24 22 - 31 mmol/L [facility] BUN 15 6 - 23 mg/dL [facility] CREATININE 0.82 0.50 - 1.20 mg/dL [facility] GLUCOSE 89 70 - 115 mg/dL [facility] ALBUMIN 4.7 3.5 - 5.2 g/dL [facility] TOTAL PROTEIN 7.6 6.0 - 8.0 g/dL [facility] CALCIUM 10.1 8.6 - 10.7 mg/dL [facility] ALKALINE PHOSPHATASE 72 40 - 130 U/L [facility] TOTAL BILIRUBIN 0.5 0.0 - 1.0 mg/dL [facility] AST 28 10 - 50 U/L [facility] ALT 23 10 - 50 U/L [facility] GLOBULIN 2.9 2.2 - 4.2 g/dL [facility] EGFR 120 >60 mL/min/1.7 3m2 [facility] Comment:Estimated glomerular filtration rate calculated using the CKD-EPI refit equation. ANION GAP 10 3 - 15 mmol/L [facility] Blood 04/10/2022 12:4 0 PM EST 04/10/2022 1:02 PM EST Mary Nava PA-C LAB BLOOD ORDERABLES [id number] [place] [address] * (ABNORMAL) CBC (04/10/2022 12:40 PM EST) WBC 8.35 4.00 - 10.90 K/uL [facility] RBC 5.09 4.50 - 6.40 M/uL [facility] HGB 15.6 13.5 - 18.0 g/dL [facility] HCT 46.0 40.0 - 54.0 % [facility] PLT 237 150 - 450 K/uL [facility] MCV 90.4 80.0 - 100.0 fL [facility] MCH 30.6 27.0 - 32.0 pg [facility] MCHC 33.9 32.0 - 36.0 g/dL [facility] RDW 11.3(L) 11.5 - 14.5 % [facility] MPV 10.7 8.4 - 12.0 fl [facility] NRBC 0.00 0.00 /100 WBCs [facility] ABSOLUTE NRBC 0.00 0.00 K/uL [facility] Blood 04/10/2022 12:4 0 PM EST 04/10/2022 1:02 PM EST Mary Nava PA-C LAB BLOOD ORDERABLES Performing Organization Address City/[facility] [place] [address] * 25-OH vitamin D (04/10/2022 12:40 PM EST) 25 OH VIT D (TOTAL) 22 20 - 80 ng/mL [facility] Blood 04/10/2022 12:4 0 PM EST 04/10/2022 1:02 PM EST Mary Nava PA-C LAB BLOOD ORDERABLES Performing Organization Address [facility] [place] [address] documented in this encounter Visit Diagnoses Diagnosis Post-traumatic osteoarthritis of both knees- Primary documented in this encounter Care Teams Logistics Assistant Relationship Specialty Start Date End Date Shant Bradford DO [address] [place] [address] PCP - General 07/16/20 documented as of this encounter Additional Source Comments The information contained in this document represents components of the legal health record. It is not the complete legal health record.[facility]
--- OUTSIDE RECORDS SUMMARY | 2023-11-23 18:40 | XMS_ITS | Encounter Summary ---
Author Organization [facility] Address [phone] [place] [address] Care Team Providers Care Hand Bobbin Cleaner Name Role Phone SanchezShant Abner Primary Care Provider + Encounter Details Date Type Department Care Team (Latest Contact Info) Description 04/10/2022 1:00 PM EST Office Visit [place] [id number] [place] [address] Adriana Ragsdale MD [address] [place] [phone] [email or web address] Preop testing (Primary Dx); Post-traumatic osteoarthritis of both knees Anesthesia Record Procedure Summary Procedure Name Responsible [...] an stop data 1710 An Stop Meds * Agents No agents on file. * Blood No blood administrations on file. Lines, Drains, and Airways Type Details Placement Removal Incision/Surgical Site 05/05/22; Left; Knee 04/10 11/28 0000 by Irma Valadez RN Peripheral IV Placement Date: 04/10 11/28; Placement Time: 1251; Size: 20 G; Orientation: Right; Location: Hand; [...] Procedure Name Priority Date/Time Associated Diagnosis Comments COMPREHENSIVE METABOLIC PANEL Routine 04/10/2022 12:40 PM EST Post-traumatic osteoarthritis of both knees 25-OH VITAMIN D Routine 04/10/2022 12:40 PM EST Post-traumatic osteoarthritis of both knees CBC Routine 04/10/2022 12:40 PM EST Post-traumatic osteoarthritis of both knees MRSA/MSSA PRE-OP PCR Routine 04/10/2022 12:30 PM EST Preop testing documented in this encounter Results * 25-OH vitamin D (04/10/2022 12:40 PM EST) 25 OH VIT D (TOTAL) 22 20 - 80 ng/mL [facility] Blood 04/10/2022 12:4 0 PM EST 04/10/2022 1:02 PM EST Mary Nava PA-C LAB BLOOD ORDERABLES [facility] [address] [place] [address] * (ABNORMAL) CBC (04/10/2022 12:40 PM EST) WBC 8.35 4.00 - 10.90 K/uL [facility] RBC 5.09 4.50 - 6.40 M/uL [facility] HGB 15.6 13.5 - 18.0 g/dL [facility] HCT 46.0 40.0 - 54.0 % [facility] PLT 237 150 - 450 K/uL [facility] MCV 90.4 80.0 - 100.0 fL [facility] MCH 30.6 27.0 - 32.0 pg [facility] MCHC 33.9 32.0 - 36.0 g/dL [facility] RDW 11.3(L) 11.5 - 14.5 % [facility] MPV 10.7 8.4 - 12.0 fl [facility] NRBC 0.00 0.00 /100 WBCs [facility] ABSOLUTE NRBC 0.00 0.00 K/uL [facility] Blood 04/10/2022 12:4 0 PM EST 04/10/2022 1:02 PM EST Mary Nava PA-C LAB BLOOD ORDERABLES [facility] [address] [place] [address] * Comprehensive metabolic panel (04/10/2022 12:40 PM EST) SODIUM 136 136 - 145 mmol/L [facility] POTASSIUM 4.5 3.4 - 5.0 mmol/L [facility] Comment:HEMOLYSIS_INDEX_OF_3 5,INTERPRET_WITH_CAUTION CHLORIDE 102 98 - 107 mmol/L [facility] CO2 24 22 - 31 mmol/L [facility] BUN 15 6 - 23 mg/dL [facility] CREATININE 0.82 0.50 - 1.20 mg/dL [facility] GLUCOSE 89 70 - 115 mg/dL [facility] ALBUMIN 4.7 3.5 - 5.2 g/dL [facility] TOTAL PROTEIN 7.6 6.0 - 8.0 g/dL [facility] CALCIUM 10.1 8.6 - 10.7 mg/dL [facility] ALKALINE PHOSPHATASE 72 40 - 130 U/L [facility] TOTAL BILIRUBIN 0.5 0.0 - 1.0 mg/dL [facility] AST 28 10 - 50 U/L [facility] ALT 23 10 - 50 U/L [facility] GLOBULIN 2.9 2.2 - 4.2 g/dL [facility] EGFR 120 >60 mL/min/1.7 3m2 [facility] Comment:Estimated glomerular filtration rate calculated using the CKD-EPI refit equation. ANION GAP 10 3 - 15 mmol/L [facility] Blood 04/10/2022 12:4 0 PM EST 04/10/2022 1:02 PM EST Mary Nava PA-C LAB BLOOD ORDERABLES [address] [address] * MRSA/MSSA pre-op PCR (04/10/2022 12:30 PM EST) MRSA PCR SCREEN MRSA NEGATIVE MRSA NEGATIVE [facility] Staph Aureus PCR Screen SA NEGATIVE SA NEGATIVE [facility] Other (Nasal) 04/10/2022 12: 30 PM EST 04/10/2022 1:01 PM EST Ivelisse Byers Ayla LIME KILN AND RECAUSTICIZING OPERATOR NON CULTURE MICROBI OLOGY [facility] [address] [place] [address] documented in this encounter Visit Diagnoses Diagnosis Preop testing- Primary Unspecified pre-operative examination Post-traumatic osteoarthritis of both knees documented in this encounter Care Teams Hand Bobbin Cleaner Relationship Specialty Start Date End Date Shant Bradford DO [address] [facility] [address] PCP - General 07/16/20 documented as of this encounter Additional Source Comments The information contained in this document represents components of the legal health record. It is not the complete legal health record.[facility]
--- OUTSIDE RECORDS SUMMARY | 2023-11-23 18:40 | XMS_ITS | Encounter Summary ---
Author Organization [facility] Address [phone] [facility] [place] [address] Care Team Providers Care Clay Artisan Name Role Phone Shant Bradford DO Primary Care Provider + Encounter Details Date Type Department Care Team ([facility] Contact Info) Description 12/26/2020 Ancillary Orders [facility] [address] [place] [id number] Delvis Kuhn MD [address] [place] [id number] [email or web address] Social History Tobacco Use Types Packs/Day [...] documented as of this encounter Results * MRI Lower Extremity Outside (No Interpretation) (10/17/2020 12:00 AM EDT) Narrative BAMBI - 12/26/2020 8:41 AM EDT This study is for PACS storage only and not for interpretation. Delvis Kuhn MD IMG OUTSIDE IMAG ING W/OUT INTERPRETATION [facility] documented in this encounter Visit Diagnoses Not on filedocumented in this encounter Care Teams Clay Artisan Relationship Specialty Start Date End Date Shant Bradford DO [address] [place] [address] PCP - General 07/16/20 documented as of this encounter Additional Source Comments The information contained in this document represents components of the legal health record. It is not the complete legal health record.[facility]
--- OUTSIDE RECORDS SUMMARY | 2023-11-23 18:40 | XMS_ITS | Encounter Summary ---
Author Organization [facility] Address [phone] [facility] [place] [address] Care Team Providers Care Crewman Main Battle Tank Name Role Phone Shant Bradford DO Primary Care Provider + Reason for Visit * Reason Onset Date Comments Advice on Treatment Plan 12/18/2020 Encounter Details Date Type Department Care Team ([facility] Contact Info) Description 12/18/2020 Telephone [facility] Orthoped[facility] [address] [address] Kilo Goldman LPN [address] [place] [address] [email or web address] Advice on Treatment Plan Social History Tobacco Use Types Packs/Day Years Used Date Smoking Tobacco: Never Smokeless Tobacco: Never Sex and Gender Information Value Date Recorded Sex Assigned at Male 07/16/2020 11:01 AM EST Gender Identity Male 07/16/2020 11:01 AM EST Sexual Orientation Straight 07/16/2020 11 :01 AM EST documented as of this encounter Progress Notes * Kilo Goldman LPN - 12/18/2020 8:45 AM EDT Patient left a msg on [facility] requesting a call back from Dr. Hein's office regarding receving his imaging on his left and right knee. He would like a call back to [phone]. Kilo Goldman LPN documented in this encounter Plan of Treatment Not on file documented as of this encounter Visit Diagnoses Not on filedocumented in this encounter Care Teams Crewman Main Battle Tank Relationship Specialty Start Date End Date Shant Bradford DO [address] [place] [address] PCP - General 07/16/20 documented as of this encounter Additional Source Comments The information contained in this document represents components of the legal health record. It is not the complete legal health record.[facility]
--- OUTSIDE RECORDS SUMMARY | 2023-11-23 18:40 | XMS_ITS | Encounter Summary ---
Author Organization [facility] Address [phone] [facility] [place] [address] Care Team Providers Care Resident Care Aide Name Role Phone Shant Bradford DO Primary Care Provider + Encounter Details Date Type Department Care Team (Latest Contact Info) Description 04/10/2022 12:35 PM EST - 04/10/2022 11:59 PM EST Hospital Encounter [facility] Pathology Outpatient Lab [address] [place] [address] Adriana Ragsdale MD [address] [place] [phone] [email or web address] Disposition: Home or Self Care Social [...] on filedocumented in this encounter Care Teams Resident Care Aide Relationship Specialty Start Date End Date Shant Bradford DO [address] [place] [address] PCP - General 07/16/20 documented as of this encounter Additional Source Comments The information contained in this document represents components of the legal health record. It is not the complete legal health record.[facility]
--- OUTSIDE RECORDS SUMMARY | 2023-11-23 18:40 | XMS_ITS | Encounter Summary ---
Author Organization [facility] Address [phone] [facility] [place] [address] Care Team Providers Care Supplier Development Manager Name Role Phone Shant Bradford DO Primary Care Provider + Reason for Visit * Reason Comments Initial Visit B/l knee pain * Consultation (Routine) - Closed Specialty Diagnoses / Procedures Referred By Contac t Referred To Contact Orthopedics Diagnoses Primary localized osteoarthrosis of lower leg, unspecified laterality Fidelina Pino PA-C [address] [place] [address] Department [place] [address] Email: [email or web address] Adriana Ragsdale MD [address] [place] [phone] Email: [email or web address] Referral ID Status Reason Start Date Expiration Date Visits Re quested Visits Authorized [id number] Closed 11/03/2021 11/03/2022 6 6 Encounter Details Date Type Department Care Team (Latest Contact Info) Description 11/17/2021 12:30 PM EDT Office Visit [facility] Department of Orthopaedics [address] [place] [address] Adriana Ragsdale MD [address] [place] [phone] [email or web address] Post-traumatic osteoarthritis of both knees (Primary Dx); Chronic pain of both knees Social History Tobacco Use Types Packs/Day Years [...] - Inhaled Oxygen Concentration - - Weight 90.3 kg (199 lb 1.6 oz) 11/17/2021 12:11 PM EDT Height 175.3 cm (5' 9) 11/17/2021 12:11 PM EDT Body Mass Index 29.4 11/17/2021 12:11 PM EDT documented in this encounter Progress Notes * Adriana Ragsdale MD - 11/17/2021 12:30 PM EDT Images from the original note were not included. Adriana Ragsdale MD, ASHLEY Director of Research, Arthroplasty Services [facility] PCP: ?Shant Bradford DO [address] [place] [id number] Referring Physician: Shant Bradford, [address] [place] [address] David Morrow DATE OF : 1990 DATE OF SERVICE: 11/18/21 CC: bilateral knee pain and instability - left worse than right ?VISIT DIA. Post-traumatic osteoarthritis of both knees 2. Chronic pain of both knees ?INTERVAL HISTORY: David Morrow is a 31 y.o. male new patient who presents to the office todayfor evaluation of bilateral knee pain and instability - left worse than right. The patient has experienced symptoms for approximately 12 years. There is a history of trauma. The patient underwent 4 left knee ACL tears and 2 right knee ACL tears. This started in 2000. He has had 3 L knee ACL reconstructions - hamstring, BTB and cadaver. On the right side, he has had 2 reconstructions - cadaver andBTB. He is unstable in both knees, left worse than right. He has difficulty going down declines anddown hills. He has difficulty in the anterior knee when going up stairs. He feels better when resting and straightening his leg. He tried bracing and it was uncomfortable and didn't help. He hasn't had injections. He feels better with rest and activity modification. [facility] believes that TKA is the next step. He has no fevers or chills. 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 PAST SURGICAL HISTORY: No past surgical history on file. CURRENT MEDICATIONS: Current Outpatient Medications Ordered in Epic Medication Sig ??? cetirizine (ZYRTEC) 10 MG tablet Take 75 mg by mouth daily. ??? cyclobenzaprine (FLEXERIL) 5 MG tablet Take 5 mg by mouth 3 (three) times a day as needed for muscle spasms. ??? sertraline (ZOLOFT) 50 MG tablet Take 50 mg by mouth daily. ??? omeprazole (PRILOSEC) 10 MG capsule Take 10 mg by mouth daily. ALLERGIES TO MEDICATIONS: Allergies as of 11/17/2021 - Reviewed 11/17/2021 Allergen Reaction Noted ??? Codeine 07/24/2020 ??? Shellfish containing products 07/24/2020 FAMILY HISTORY: No family history on file. SOCIAL HISTORY: Social History Socioeconomic History ??? Marital status: Single Spouse name: None ??? Number of children: None ??? Years of education: None ??? Highest education level: None Tobacco Use ??? Smoking status: Never Smoker ??? Smokeless tobacco: Never Used General ROS: negative PHYSICAL EXAMINATION: Vitals: 11/17/21 1211 Weight: 90.3 kg (199 lb 1.6 oz) Height: 175.3 cm (5' 9) Body mass index is 29.4 kg/m??. Patient is a male; alert and oriented, in no acute distress. Well developed, appropriate affect. Gait: moderate antalgic Examination of the left knee demonstrates: Skin is intact, warm and dry. Effusion: small Joint line tenderness: both medial and lateral Crepitation: significant ROM: 0-120 Alignment: valgus Ligaments: unstable opens to varus and valgus stress Quad strength: 4+/5 No obvious peripheral edema noted. Distal neurovascular exam demonstrates normal perfusion, intact sensation to light touch and full strength. Examination of the right knee demonstrates: Skin is intact, warm and dry. Effusion: none Joint line tenderness: both medial and lateral Crepitation: significant ROM: 0-120 Alignment: valgus Ligaments: unstable opens to varus and valgus stress- but less than the left side Quad strength: 5/5 No obvious peripheral edema noted. Distal neurovascular exam demonstrates normal perfusion, intact sensation to light touch and full strength. ?IMAGING: X-rays of the bilateral knees were reviewed. The x-rays demonstrate ??degenerative joint disease, cartilage fibrillation, maltracking patella. MRI of the left knee showed full thickness cartilage loss KL4, with meniscal tears ?? IMPRESSION: 1. Post-traumatic osteoarthritis of both knees 2. Chronic pain of both knees PLAN: ?David Morrow is a 31 y.o. male with Post-traumatic osteoarthritis of both knees [M17.2]. The patient has failed conservative management and is a candidate for left total knee replacement Scott with lateral release on 03/25/2022 at [facility]. The risks, benefits, and alternatives to surgery were discussed with the patient. The risks could include but were not limited to bleeding, blood clots, infection, damage to the nerve/artery/vessels, limb length discrepancy, fracture, dislocation, implant wear, implant failure, and even . There might be some leg length discrepancy to achieve stability. The patient also understood that Glucose levels will be checked post surgery and treated with Insulin as needed to minimize the chance of infection if their surgery is booked at [facility] even if there is no prior diagnosis of diabetes. The patient was told that they would need to take oral antibiotic prophylaxis for 2 years after surgery. The patient will be discharged with outpatient physical therapy, and will most likely be discharged to home. Planned procedure: Left total knee replacement Scott with lateral release Implants needed: PS and TS available. Notes: PPR, Vitamin D and PEPPER studies, needs imaging and labs Specific risks: The patient is young and will likely undergo a revision in his lifetime. If all checked then Patient Class should be PPR on admission: [x] ASA < 2 [x] Home Social Support [x] Unilateral Surgery [x] Primary Surgery [x] No comorbidities which would preclude extended hospital stay [x] No chronic anticoagulation [x] No pre-operative chronic opioid use [x] No active CAD or arrhythmia [x] No severe sleep apnea All questions were answered. The patient will follow-up postoperatively. This note was dictated using [employer] software. While it was briefly proofread prior to completion, some grammatical, spelling, and word choice errors due to dictation may still occur. Current view: Showing all answers Show Only Relevant Answers Proms Msk All Joints Selector New Question 11/16/2021 11:16 AM EDT - Filed by Patient What is the reason for your visit? Please also select any joints/areas for which you are scheduled or have recently had surgery. Knee The following questions provide your doctor [...] for calculation purposes only) (range: 0 - 50) 37 PROMs PROMIS Physical Function SF10a (range: 0 - 62) 40.1 (Mild) In general, would you say your health is: Fair In general, would you say your quality of life is: Fair In general, how would you rate [...] Form Score (Mental) (range: 21 - 68) 38.8 (Fair) Please indicate the degree of difficulty you have experienced in the LAST WEEK due to your knee problem. Rising from bed None Putting on socks/stockings None Rising from sitting None Bending to floor None Twisting/pivoting on your injured knee Extreme Kneeling Severe Squatting Moderate PROMs KOOS-PS Raw Score (range: 0 - 28) 9 PROMs Knee Outcome Score (KOOS-PS) (range: 0 - 100) 68.2 (Mild) In the past 7 days, what [...] can care for you after your operation? No PROMs Risk Assessment and Prediction Tool (RAPT) Score (range: 1 - 12) 9 (Additional Intervention to Discharge Directly Home (e.g. Rehabilitation in the Home)) ARE YOU AWARE OF YOUR JOINT... ??? in bed at night ? Almost never ??? when you are sitting on a chair for more than one hour ? Never ??? when you are walking for more than 15 minutes ? Seldom ??? when you are taking a shower or bath ? Seldom ??? when you are traveling in a car ? Seldom ??? when you are climbing stairs ? Sometimes ??? when you are walking on uneven ground ? Mostly ??? when you are standing up from a low-sitting position ? Mostly ??? when you are standing for long periods of time ? Sometimes ??? when you are doing housework or gardening ? Sometimes ??? when you are taking a walk or hiking ? Mostly ??? when you are doing your favorite sport ? Mostly (interim score for calculation purposes only) (range: 0 - 12) 12 (interim score for calculation purposes only) (range: 0 - 48) 32 PROMs Forgotten Joint Score (range: 0 - 100) 33.33 (Higher is better) documented in this encounter Plan of Treatment Not on file documented as of this encounter Visit Diagnoses Diagnosis Post-traumatic osteoarthritis of both knees- Primary Chronic pain of both knees documented in this encounter Care Teams Supplier Development Manager Relationship Specialty Start Date End Date Shant Bradford DO [address] [place] [address] PCP - General 07/16/20 documented as of this encounter Additional Source Comments The information contained in this document represents components of the legal health record. It is not the complete legal health record.[facility]
--- OUTSIDE RECORDS SUMMARY | 2023-11-23 18:40 | XMS_ITS | Encounter Summary ---
Author Organization [facility] Address [phone] [facility] [place] [address] Care Team Providers Care Interface Developer Name Role Phone Shant Bradford DO Primary Care Provider + Encounter Details Date Type Department Care Team ([facility] Contact Info) Description 10/18/2020 Orders Only [facility] - ([facility]) Primary Care [address] [address] ProviderVicky MD [address] [place] [address] Social History Tobacco Use Types Packs/Day Years [...] Procedure Name Priority Date/Time Associated Diagnosis Comments OUTSIDE IMAGING Routine 10/18/2020 documented in this encounter Results * Outside Imaging (10/18/2020) Historical Provider IMG XR CHEST documented in this encounter Visit Diagnoses Not on filedocumented in this encounter Care Teams Interface Developer Relationship Specialty Start Date End Date Shant Bradford DO [address] [place] [address] PCP - General 07/16/20 documented as of this encounter Additional Source Comments The information contained in this document represents components of the legal health record. It is not the complete legal health record.[facility]
--- OUTSIDE RECORDS SUMMARY | 2023-11-23 18:40 | XMS_ITS | Encounter Summary ---
Author Organization [facility] Address [phone] [facility] [place] [address] Care Team Providers Care Lube Attendant Name Role Phone Shant Bradford DO Primary Care Provider + Encounter Details Date Type Department Care Team (Late st Contact Info) Description 10/14/2020 Telephone [facility] Orthopedics [facility] [address] [place] [address] Delvis Kuhn MD [address] [place] [address] [email or web address] Social History Tobacco Use Types Packs/Day Years Used Date Smoking Tobacco: Never Smokeless Tobacco: Never Sex and Gender Information Value Date Recorded Sex Assigned at Male 07/16/2020 11:01 AM EST Gender Identity Male 07/16/2020 11:01 AM EST Sexual Orientation Straight 07/16/2020 11 :01 AM EST documented as of this encounter Progress Notes * Ashley Shah - 10/14/2020 8:32 AM EDT Phone calls re pt's MRI PA Called [facility] - not under them, called [facility] said they???re not responsible either. Called [facility] - , spoke to Mela and gave info- ICD M23.92, CPT 47690 - connected toa nurse reviewer - Auth # [id number] - 08/20 to 10/18 - but location was O so [facility], an alternative, was approved. Spoke to patient to give him the information but claims [facility] should be in-network so called [facility] again and spoke to Bassam who gave me the Auth # [id number] under BS for his R knee MRI ([id number]), stating he can go anywhere in [place] and it will be approved. documented in this encounter Plan of Treatment Not on file documented as of this encounter Visit Diagnoses Not on filedocumented in this encounter Care Teams Lube Attendant Relationship Specialty Start Date End Date Shant Bradford DO [address] [place] [address] PCP - General 07/16/20 documented as of this encounter Additional Source Comments The information contained in this document represents components of the legal health record. It is not the complete legal health record.[facility]
--- OUTSIDE RECORDS SUMMARY | 2023-11-23 18:40 | XMS_ITS | Encounter Summary ---
Author Organization [facility] Address [phone] [place] [id number] Care Team Providers Care Flatwork Tier Name Role Phone SanchezShant Abner Primary Care Provider + Encounter Details Date Type Department Care Team (Latest Contact Info) Description 04/28/2022 10:00 AM EST Pre-Admission Testing [id number] [place] [address] Adriana Ragsdale MD [address] [place] [id number] [email or web address] Anxiety; Gastroesophageal reflux disease; Asthma; Depressive disorder Anesthesia Record Procedure Summary Procedure Name Responsible [...] 05/05/22 1251 by Gorge Rutherford RN 05/06/22 09 by Santiago Mckenna RN documented in this [...] - - Weight 90.7 kg (200 lb) 04/28/2022 10:05 AM EST Height 176.5 cm (5' 9.5) 04/28/2022 10:05 AM ES T Body Mass Index 29.11 04/28/2022 10:05 AM EST documented in this encounter Progress Notes * Shasha Mcmillan CNP - 04/28/2022 10:00 AM EST Images from the original note were not included. Pre-Procedure Evaluation CAMP ATTENDANT CAMP ATTENDANT preoperative assessment conducted via phone interview. Subjective: Patient is a 32 y.o. male for telehealth preoperative evaluation for planned ROBOTIC ARTHROPLASTY TOTAL KNEE WITH LATERL RELEASE - Left on 05/05/[address] Ragsdale. Past Medical History: Diagnosis Date ??? Anxiety ??? 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 Depressive disorder ??? Gastroesophageal reflux disease controlled with omeprazole Past Surgical History: Procedure Laterality Date ??? ANTERIOR CRUCIATE LIGAMENT REPAIR Left ??? COLONOSCOPY ??? KNEE ARTHROSCOPY Bilateral multiple on each knee ??? MENISCECTOMY Left ??? UPPER GASTROINTESTINAL ENDOSCOPY Allergies Allergen Reactions ??? Shellfish Containing Products Anaphylaxis ??? Codeine Nausea and/or Vomiting Allergy in childhood, received in adulthood with mild nausea ??? [place] GI Upset, Hives and Itching Outpatient Encounter Medications as of 04/28/2022 Medication Sig Dispense Refill Last Dispense ??? cetirizine (ZYRTEC) 10 MG tablet Take 10 mg by mouth daily. Unknown (patient-reported) ??? omeprazole (PRILOSEC) 10 MG capsule Take 10 mg by mouth daily. Unknown (patient-reported) ??? sertraline (ZOLOFT) 50 MG tablet Take 75 mg by mouth daily. 1.5 tablets Unknown (patient-reported) ??? cyclobenzaprine (FLEXERIL) 5 MG tablet Take 5 mg by mouth 3 (three) times a day as needed for muscle spasms. (Patient not taking: Reported on 04/28/2022) Unknown (patient-reported) No facility-administered encounter medications on file as of 04/28/2022. Medication List Accurate as of April 28, [...] of surgery with small sip of water. Social History Tobacco Use ??? Smoking status: Never ??? Smokeless tobacco: Never Substance Use Topics ??? Alcohol use: Not Currently Alcohol/week: 1.0 - 2.0 standard drink Types: 1 - 2 Cans of beer per week Comment: 4-6 a month Social History Substance and Sexual Activity Drug Use Yes ??? Frequency: 7.0 times per week ??? Types: Marijuana Comment: smoking at night for sleep Family History Problem Relation Age of Onset ??? Anesthesia problems Neg Hx ??? Malig Hyperthermia Neg Hx ??? Pseudochol deficiency Neg Hx Audit C Total Audit-C Score: 2 Review of Systems Constitutional: Negative for chills, fatigue, fever or unexpected weight change. Psychological: Negative for depression or anxiety. Respiratory: Negative for cough, wheezing, or shortness of breath. Cardiovascular: Negative for chest pain, palpitations, dizziness/lightheadedness, or syncope. Gastrointestinal: Negative for abdominal pain, constipation, diarrhea, nausea or vomiting, change in bowel habits, or black or bloody stools. Genitourinary: Negative for difficulty urinating, dysuria, frequency, urgency, or gross hematuria. Musculoskeletal: Negative for back pain or neck pain. Positive for chronic left knee pain. Skin: Negative for rashes or open sores. Neurological: Negative for dizziness or headaches. Hematological: Does not bruise/bleed easily. Per patient, received second dose of covid vaccine, asymptomatic, no known history of covid infection in the last 90 days or any exposures in the past 10 days. Exercise tolerance: Patient reports he walks dog at least 1 mile day, bicycle, stretching exercises Patient denies chest pain, shortness of breath with climbing 2 flights of stairs. Objective: Physical exam was not completed as this was a phone screen. Predictors of intubation difficulty: Morbid obesity? no Neck range of motion: normal per patient Dentition: No chipped, loose, or missing teeth. PREVIOUS TESTING REVIEWED: Lab Results Component Value Date WBC 8.35 04/10/2022 RBC 5.09 04/10/2022 HGB 15.6 04/10/2022 HCT 46.0 04/10/2022 PLT 237 04/10/2022 MCV 90.4 04/10/2022 MCH 30.6 04/10/2022 MCHC 33.9 04/10/2022 RDW 11.3 (L) 04/10/2022 MVP 10.7 04/10/2022 NRBCA 0.00 04/10/2022 Lab Results Component Value Date NA 136 04/10/2022 K 4.5 04/10/2022 CL 102 04/10/2022 CO2 24 04/10/2022 BUN 15 04/10/2022 CRE 0.82 04/10/2022 GLU 89 04/10/2022 CA 10.1 04/10/2022 GFR 120 04/10/2022 ANION 10 04/10/2022 Lab Results Component Value Date VITDT 22 04/10/2022 MRSA/MSSA pre-op PCR Order: [id number] Collected 04/10/2022 12:30 ?? Status: Final result ?? Visible to patient: Yes (not seen) ?? Next appt: 05/18/2022 at 03:15 PM in Orthopedics (Adriana Ragsdale MD) ?? Dx: Preop testing ?? Specimen Information: Nasal; Other 0 Result Notes Component Ref Range & Units 04/10/22 1230 MRSA PCR SCREEN MRSA NEGATIVE MRSA NEGATIVE Staph Aureus PCR Screen SA NEGATIVE SA NEGATIVE Specimen Collected: 04/10/22 12:30 Last Resulted: 04/10/22 17:08 Assessment & Plan: Patient is a 32 y.o. male presents prior to procedure as above. Patient has a past medical history of Anxiety, Asthma, Depressive disorder, and Gastroesophageal reflux disease. Patient has DASI >4 METs exercise tolerance. Pending anesthesia review and approval on day of surgery. 1. Preoperative workup as follows: None 2. Change in medication regimen before surgery: Per AVS. AVS and medication instructions sent to patient gateway and CAMP ATTENDANT reviewed all instructions with patient and patient verbalizes understanding. 3. Invasive hemodynamic monitoring perioperatively: At the discretion of the anesthesiologist. 4. Other measures: none 5. Factors that may place patient at increased risk for yolanda-operative complications:None Evaluation completed via telehealth method. Shasha Mcmillan CNP documented in this encounter Plan of Treatment Not on file documented as of this encounter Visit Diagnoses Diagnosis Anxiety Anxiety state, unspecified Gastroesophageal reflux disease Esophageal reflux Asthma Unspecified asthma Depressive disorder Depressive disorder, not elsewhere classified documented in this encounter Care Teams Flatwork Tier Relationship Specialty Start Date End Date Shant Bradford DO [address] [place] [address] PCP - General 07/16/20 documented as of this encounter Additional Source Comments The information contained in this document represents components of the legal health record. It is not the complete legal health record.[facility]
--- OUTSIDE RECORDS SUMMARY | 2023-11-23 18:41 | XMS_ITS | Encounter Summary ---
Author Organization [facility] Address [phone] [facility] [place] [address] Care Team Providers Care Lieutenant Firefighter Name Role Phone Shant Bradford DO Primary Care Provider + Encounter Details Date Type Department Care Team (Latest Contact Info) Description 07/24/2020 1:54 PM EDT - 07/24/2020 11:59 PM EDT Hospital Encounter [address] [address] Delvis Kuhn MD [address] [place] [address] [email or web address] Discharge Disposition: Home or Self Care [...] Sig Dispensed Refills Start Date End Date cetirizine (ZYRTEC) 10 MG tablet Take 10 [...] Comments XR KNEE 4 OR MORE VIEWS (BILATERAL) Routine 07/24/2020 2:05 PM EDT Articular cartilage disorder of knee, unspecified laterality Instability of knee joint, unspecified laterality documented in this encounter Results * XR KNEE 4 OR MORE VIEWS (BILATERAL) (07/24/2020 2:05 PM EDT) Anatomical Region Laterality Modality Knee Bilateral, Knee Right, Knee Left Radiographic Imaging 07/24/2020 4:32 PM EDT Impressions 07/24/2020 4:34 PM EDT 1. ??Status post bilateral ACL reconstruction. 2. ??Osteoarthritic changes of the bilateral knees, mild to moderate in the medial tibiofemoral joint spaces. Narrative 07/24/2020 4:34 PM EDT Reason for exam (per EHR order): * Knee instability TECHNIQUE: 5 radiographs of both knees. COMPARISON: None. FINDINGS: Left Knee: Status post ACL reconstruction. Mild to moderate medial tibiofemoral cartilage space narrowing, associated with marginal osteophyte production. Trace effusion. Right Knee: Status post ACL reconstruction. Mild to moderate medial tibiofemoral cartilage space narrowing, associated with marginal osteophyte production. No effusion. Procedure Note Dany Dave MD - 07/24/2020 Reason for exam (per EHR order): * Knee instability TECHNIQUE: 5 radiographs of both knees. COMPARISON: None. FINDINGS: Left Knee: Status post ACL reconstruction. Mild to moderate medialtibiofemoral cartilage space narrowing, associated with marginalosteophyte production. Trace effusion. Right Knee: Status post ACL reconstruction. Mild to moderate medialtibiofemoral cartilage space narrowing, associated with marginalosteophyte production. No effusion. IMPRESSION: 1. Status post bilateral ACL reconstruction. 2. Osteoarthritic changes of the bilateral knees, mild to moderate in themedial tibiofemoral joint spaces. Delvis Kuhn MD IMG XR LOWER EXT REMITY documented in this encounter Visit Diagnoses Diagnosis Articular cartilage disorder of knee, unspecified laterality Instability of knee joint, unspecified laterality documented in this encounter Care Teams Lieutenant Firefighter Relationship Specialty Start Date End Date Shant Bradford DO [address] [phone] PCP - General 07/16/20 documented as of this encounter Additional Source Comments The information contained in this document represents components of the legal health record. It is not the complete legal health record.[facility]
--- OUTSIDE RECORDS SUMMARY | 2023-11-23 18:41 | XMS_ITS | Encounter Summary ---
Author Organization [facility] Address [phone] [facility] [place] [address] Care Team Providers Care Gridcap Machine Operator Name Role Phone Shant Bradford DO Primary Care Provider + Encounter Details Date Type Department Care Team (Late st Contact Info) Description 07/19/2020 Ancillary Orders [facility] [address] [place] [id number] Unknown, Unknown, Social History Tobacco Use Types Packs/Day Years [...] * MRI Lower Extremity Outside (No Interpretation) (09/11/2019 12:00 AM EDT) Narrative BAMBI - 07/19/2020 3:30 PM EST This study is for PACS storage only and not for interpretation. Unknown Unknown MD ROMO OUTSIDE IMAGING W/OUT INTERPRETATION PERCIPIO_[facility] documented in this encounter Visit Diagnoses Not on filedocumented in this encounter Care Teams Gridcap Machine Operator Relationship Specialty Start Date End Date Shant Bradford DO [address] [place] [id number] PCP - General 07/16/20 documented as of this encounter Additional Source Comments The information contained in this document represents components of the legal health record. It is not the complete legal health record.[facility]
--- OUTSIDE RECORDS SUMMARY | 2023-11-23 18:41 | XMS_ITS | Encounter Summary ---
Author Organization [facility] Address [phone] [address] [place] [address] Care Team Providers Care Fruit Or Nut Crops Farm Manager Name Role Phone Unavailable Primary Care Provider Unavailabl e Encounter Details Date Type Department Care Team (Late st Contact Info) Description 09/11/2019 Ancillary Procedure [facility] [address] [place] [address] Unknown, Unknown, MD Social History Tobacco Use Types Packs/Day Years [...] MRI LOWER EXTREMITY OUTSIDE (NO INTERPRETATION) Routine 09/11/2019 12:00 AM EDT documented in this encounter Results * MRI Lower Extremity Outside (No Interpretation) (09/11/2019 12:00 AM EDT) Narrative MARCELLJOHNATHANBWH - 07/19/2020 3:30 PM EST This study is for PACS storage only and not for interpretation. Unknown Unknown MD ROMO OUTSIDE IMAGING W/OUT INTERPRETATION PERCIPIO_[facility] documented in this encounter Visit Diagnoses Not on filedocumented in this encounter Additional Source Comments The information contained in this document represents components of the legal health record. It is not the complete legal health record.[facility]
--- OUTSIDE RECORDS SUMMARY | 2023-11-23 18:41 | XMS_ITS | Encounter Summary ---
Author Organization [facility] Address [phone] [place] [address] Care Team Providers Care Adjunct Art History Instructor Name Role Phone Unavailable Primary Care Provider Unavailabl e Encounter Details Date Type Department Care Team (Late st Contact Info) Description 08/02/2019 Ancillary Procedure [facility] [address] [place] [address] Unknown, Unknown, MD Social History Tobacco Use [...] Name Priority Date/Time Associated Diagnosis Comments XR LOWER EXTREMITY OUTSIDE (NO INTERPRETATION) Routine 08/02/2019 12:00 AM EDT documented in this encounter Results * XR Lower Extremity Outside (No Interpretation) (08/02/2019 12:00 AM EDT) Narrative KVNGH - 07/19/2020 3:30 PM EST This study is for PACS storage only and not for interpretation. Unknown Unknown MD ROMO OUTSIDE IMAGING W/OUT INTERPRETATION PERCIPIO_[facility] documented in this encounter Visit Diagnoses Not on filedocumented in this encounter Additional Source Comments The information contained in this document represents components of the legal health record. It is not the complete legal health record.[facility]
--- OUTSIDE RECORDS SUMMARY | 2023-11-23 18:41 | XMS_ITS | Encounter Summary ---
Author Organization [facility] Address [phone] [facility] [place] [address] Care Team Providers Care Sweater Designer Name Role Phone Shant Bradford DO Primary Care Provider + Reason for Visit * Reason Comments New Evaluation Knee Pain bilateral * Consultation (Routine) - Closed Specialty Diagnoses / Procedures Referred By Contac t Referred To Contact Orthopedic Surgery / Orthopedics Diagnoses Bilateral knee pain Bilateral knees. pt bringing XR and MRI on CD Procedures NEW ORTHO II Shant Bradford DO [address] [place] [address] Delvis Kuhn MD [address] [place] [address] Email: [email or web address] Referral ID Status Reason Start Date Expiration Date Visits Re quested Visits Authorized [id number] Closed 07/24/2020 07/23/2021 6 6 Encounter Details Date Type Department Care Team (Late Contact Info) Description 07/24/2020 1:00 PM EDT Office Visit [facility] - Orthoped[facility] [address] [place] [address] Delvis Kuhn MD [address] [place] [address] [email or web address] Articular cartilage disorder of knee, unspecified laterality [...] - Inhaled Oxygen Concentration - - Weight 94.8 kg (209 lb) 07/24/2020 1:06 PM EDT Height 175.3 cm (5' 9) 07/24/2020 1:06 PM EDT Body Mass Index 30.86 07/24/2020 1:06 PM EDT documented in this encounter Progress Notes * Delvis Kuhn MD - 07/24/2020 1:00 PM EDT Images from the original note were not included. Delvis Kuhn M.D. [facility] Chief, Sports Medicine [address] [place] [address] Director, [facility] [place] [address] F: [phone] Fidelina Joe PA-C David Morrow ?DATE OF : 1990 DATE OF SERVICE: 07/24/20 PCP: ?Shant Bradford [address] [address] Referring Physician: Shant Bradford DO [address] [place] [id number] CC: Bilateral knee pain ?VISIT DIAG: Articular cartilage disorder of knee, unspecified laterality [M23.90] ?INTERVAL HISTORY: David Mororw is a 30 y.o. male new patient who presents to the office todayfor evaluation of bilateral knee pain. He is referred by Dr See. He has a history of 4 previous ACL reconstruction on the left knee (most recent 2004), and 2 previous ACL reconstructions on the right knee (most recent 2010). He states the most recent were performed by Dr See. He is sent today for consultation. He describes significant instability episodes and is unable to walk down an incline at all. He describes global pain. He is being worked up for Ehlos-Danlos Syndrome. ? ? ?PHYSICAL EXAMINATION: Vitals: 07/24/20 1306 Weight: 94.8 kg (209 lb) Height: 175.3 cm (5' 9) Body mass index is 30.86 kg/m??. Patient is a male; alert and oriented, in no acute distress. Well developed, Body mass index is 30.86 kg/m??., appropriate affect. bilateral Knee Swelling: Mild Effusion: Negative Tenderness: None Range of Motion: Extension: Normal Flexion: 120 J Sign Negative McMurrays: Negative Anterior Lachmann: Positive 3+ Anterior Drawer: 3+ Posterior Drawer: Negative Varus Stress Test: 1+ Valgus Stress Test: 1+ Pivot Shift: Positive Patellar Apprehension: No ?IMAGING: X-Ray: ??July 2019 - subluxed patella, evidence of previous ACL reconstruction, large effusion MRI 09/2019: lateral compartment cartilage wear, medial compartment cartilage wear, ACL tear ?? IMPRESSION: 1. Articular cartilage disorder of knee, unspecified laterality PLAN: ?David Morrow is a 30 y.o. male with Articular cartilage disorder of knee, unspecified laterality [M23.90] ?? Mri of the left knee ?? Bone length and bilateral xrays today ?? follow up with [facility] after MRI is performed Fidelina Joe PA-C This is a shared visit with Dr Kuhn. This is a shared visit with my PA, Fidelina Joe. I saw and examined the patient.I have reviewed the H&P and the exam findings as well as the imaging. I have formulated the treatment plan based upon this information. In brief I have stated my thoughts and plan: ?? H&P: reviewed and agreed ?? Imaging: as above ?? Physical exam: as above. ?? Diagnosis: bilaterla knees complexinstability potentially underlying ligament laxity (not EDS) ?? Plan:we will obtain an Mri of the left knee and assemble all the imaging. I will then connect with him virtually to develop the treatment plan going forward I personally spent 30 minutes in combination of [id number]-fm-juyy and non vfot-ww-hham in conjunction with Fidelina Joe PA-C including but not limited to: preparing the patient's chart, obtaining a history and performing physical exam, counseling the patient on their diagnosis, ordering tests/miryam ging, interpreting imaging results, and documenting clinical information into the record. Delvis Kuhn MD ATTENDING Additional patient information for review: Family History: No family history on file. Surgical History: No past surgical history on file. Medical History: No past medical history on file. Allergies: Allergies Allergen Reactions ??? Codeine ??? Shellfish Containing Products Current Medication: No facility-administered encounter medications on file as of 07/24/2020. This note was dictated using [employer] software. While it was briefly proofread prior to completion, some grammatical, spelling, and word choice errors due to dictation may still occur. documented in this encounter Plan of Treatment Not on file documented as of this encounter Results * XR Bone Length Study (07/24/2020 2:09 PM EDT) Anatomical Region Laterality Modality Leg Left, Leg Right, Thigh Left, Thigh Right Radiographic Imaging 07/24/2020 4:34 PM EDT Impressions 07/24/2020 4:38 PM EDT 1. ??Leg lengths, as described. 2. ??Status post bilateral anterior cruciate ligament repair. No hardware complication. 3. ??Mild to moderate bilateral knee osteoarthritis. Narrative 07/24/2020 4:38 PM EDT Reason for exam (per EHR order): Pain Duration: Acute Additional clinical information obtained from the EHR: History of bilateral knee osteoarthritis. Preoperative planning prior to custom knee arthroplasty. TECHNIQUE: Multiple frontal radiographs and a composite image of the lower extremities were obtained, with a radiopaque ruler in place to evaluate leg length. COMPARISON: Same day dedicated knee radiographs. FINDINGS: Left Leg: Measuring from the top of the femoral head to the tibial plafond, the left lower extremity measures 85.5 cm, and the mechanical axis of the left lower extremity passes through the lateral compartment. Right Leg: The right lower extremity measures 88.1 cm, and the mechanical axis of the right lower extremity passes through the lateral compartment. Frontal evaluation of the hips: No acute fracture or dislocation. Preserved cartilage space. Frontal evaluation of the ankles : No acute fracture or dislocation. Corticated ossicles adjacent to bilateral malleoli, likely sequela of prior injury. Ankle mortise congruent. Talar domes are intact. Left Knee: Status post bilateral anterior cruciate ligament reconstruction with 2 Endobutton. No hardware complication. Alignment is intact, without acute fracture or dislocation. Mild to moderate medial tibiofemoral cartilage space narrowing, associated with marginal osteophyte formation. Right Knee: Status post bilateral anterior cruciate ligament reconstruction with 1 Endobutton. No hardware complication. Alignment is intact, without acute fracture or dislocation. Mild to moderate medial tibiofemoral cartilage space narrowing, associated with marginal osteophyte formation. Procedure Note Anyi Briones MD - 07/24/2020 Reason for exam (per EHR order): Pain Duration: Acute Additional clinical information obtained from the EHR: History ofbilateral knee osteoarthritis. Preoperative planning prior to custom kneearthroplasty. TECHNIQUE: Multiple frontal radiographs and a composite image of the lowerextremities were obtained, with a radiopaque ruler in place to evaluateleg length. COMPARISON: Same day dedicated knee radiographs. FINDINGS: Left Leg: Measuring from the top of the femoral head to the tibialplafond, the left lower extremity measures 85.5 cm, and the mechanicalaxis of the left lower extremity passes through the lateral compartment. Right Leg: The right lower extremity measures 88.1 cm, and the mechanicalaxis of the right lower extremity passes through the lateral compartment. Frontal evaluation of the hips: No acute fracture or dislocation.Preserved cartilage space. Frontal evaluation of the ankles : No acute fracture or dislocation.Corticated ossicles adjacent to bilateral malleoli, likely sequela ofprior injury. Ankle mortise congruent. Talar domes are intact. Left Knee: Status post bilateral anterior cruciate ligament reconstructionwith 2 Endobutton. No hardware complication. Alignment is intact, withoutacute fracture or dislocation. Mild to moderate medial tibiofemoralcartilage space narrowing, associated with marginal osteophyteformation. Right Knee: Status post bilateral anterior cruciate ligamentreconstruction with 1 Endobutton. No hardware complication. Alignment isintact, without acute fracture or dislocation. Mild to moderate medialtibiofemoral cartilage space narrowing, associated with marginalosteophyte formation. IMPRESSION: 1. Leg lengths, as described. 2. Status post bilateral anterior cruciate ligament repair. No hardwarecomplication. 3. Mild to moderate bilateral knee osteoarthritis. Delvis Kuhn MD IMG XR SKELETAL SURVEY * XR KNEE 4 OR MORE VIEWS [...] Primary Instability of knee joint, unspecified laterality Articular cartilage disorder of knee, unspecified laterality Instability of knee joint, unspecified laterality Articular cartilage disorder of knee, unspecified laterality Instability of knee joint, unspecified laterality documented in this encounter Care Teams Sweater Designer Relationship Specialty Start Date End Date JimmyShant briseno Abner [address] [place] [address] PCP - General 07/16/20 documented as of this encounter Additional Source Comments The information contained in this document represents components of the legal health record. It is not the complete legal health record.[facility]
--- OUTSIDE RECORDS SUMMARY | 2023-11-23 18:41 | XMS_ITS | Encounter Summary ---
Author Organization [facility] Address [phone] [facility] [place] [address] Care Team Providers Care Information Technology Associate Name Role Phone Shant Bradford DO Primary Care Provider + Encounter Details Date Type Department Care Team ([facility] Contact Info) Description 08/05/2020 Telephone [facility] [address] [place] [address] Delvis Kuhn MD [address] [place] [address] [email or web address] Social History Tobacco Use Types Packs/Day Years Used Date Smoking Tobacco: Never Smokeless Tobacco: Never Sex and Gender Information Value Date Recorded Sex Assigned at Male 07/16/2020 11:01 AM EST Gender Identity Male 07/16/2020 11:01 AM EST Sexual Orientation Straight 07/16/2020 11 :01 AM EST documented as of this encounter Progress Notes * Ina Thomas - 08/05/2020 11:05 AM EDT Patient of Dr. Hein calling to let the office know that he has cancelled his MRI appointment in [facility] and has scheduled a MRI in [place] sent will have the result sent in. documented in this encounter Plan of Treatment Not on file documented as of this encounter Visit Diagnoses Not on filedocumented in this encounter Care Teams Information Technology Associate Relationship Specialty Start Date End Date Shant Bradford DO [address] [place] [address] PCP - General 07/16/20 documented as of this encounter Additional Source Comments The information contained in this document represents components of the legal health record. It is not the complete legal health record.[facility]
--- OUTSIDE RECORDS SUMMARY | 2023-11-23 18:41 | XMS_ITS | Encounter Summary ---
Author Organization [facility] Address [phone] [facility] [place] [address] Care Team Providers Care Peoplesoft Programmer Name Role Phone Shant Bradford DO Primary Care Provider + Encounter Details Date Type Department Care Team (Latest Contact Info) Description 07/24/2020 1:54 PM EDT - 07/24/2020 11:59 PM EDT Hospital Encounter [address] [address] Delvis Kuhn MD [address] [place] [phone] [email or web address] Discharge Disposition: Home or Self Care [...] Diagnosis Comments XR BONE LENGTH STUDY Routine 07/24/2020 2:09 PM EDT Articular cartilage disorder of knee, [...] Delvis Kuhn MD IMG XR SKELETAL SURVEY documented in this encounter Visit Diagnoses Diagnosis Articular cartilage disorder of knee, unspecified laterality Instability of knee joint, unspecified laterality documented in this encounter Care Teams Peoplesoft Programmer Relationship Specialty Start Date End Date Shant Bradford DO [address] [place] [address] PCP - General 07/16/20 documented as of this encounter Additional Source Comments The information contained in this document represents components of the legal health record. It is not the complete legal health record.[facility]
--- OUTSIDE RECORDS SUMMARY | 2023-11-23 18:41 | XMS_ITS | Encounter Summary ---
Author Organization [facility] Address [phone] [facility] [place] [address] Care Team Providers Care Die Cutter Name Role Phone Shant Bradford DO Primary Care Provider + Encounter Details Date Type Department Care Team (Late st Contact Info) Description 07/19/2020 Ancillary Orders [facility] [address] [place] [id number] Unknown, Unknown, Social History Tobacco Use Types [...] as of this encounter Results * XR Lower Extremity Outside (No Interpretation) (08/02/2019 12:00 AM EDT) Narrative BAMBI - 07/19/2020 3:30 PM EST This study is for PACS storage only and not for interpretation. Unknown Unknown [facility] OUTSIDE IMAGING W/OUT INTERPRETATION [facility] documented in this encounter Visit Diagnoses Not on filedocumented in this encounter Care Teams Die Cutter Relationship Specialty Start Date End Date Shant Bradford DO [address] [place] [address] PCP - General 07/16/20 documented as of this encounter Additional Source Comments The information contained in this document represents components of the legal health record. It is not the complete legal health record.[facility]
[2023-11-24 09:43] LABS: Lyme Ab w Rflx to Lyme Confirm Negative (Negative)
[2023-11-24 09:48] LABS: Syphilis Serology (RPR) Negative (Negative)
[2023-11-24 10:07] LABS: HIV-1/2 Ag & Ab Screen Negative (Negative)
[2023-11-24 10:13] LABS: Hepatitis C Ab w Rflx HCV PCR Negative (Negative)
[2023-11-25 13:03] LABS: Chlamydia Result Negative (Negative); GC Result Negative (Negative)
== END 2023-11-23 18:36 | disposition home or self-care (01) ==
LOC: LBN 18:35
PROVIDERS: PCP Family Medicine; Visit Provider Nurse Practitioner Family
DX: Z11.3 Encounter for screening for infections with a predominantly sexual mode of transmission (principal); M25.469 Effusion, unspecified knee; Z20.2 Contact with and (suspected) exposure to infections with a predominantly sexual mode of transmission
CPT/HCPCS: 86803; 87389; 87491; 87591; 86592; 86618

== ENCOUNTER 2024-02-03 12:50 | Outpatient (CLI) | payer BC, SELFPAY ==
--- OUTSIDE RECORDS SUMMARY | 2024-02-03 12:54 | XMS_ITS | Encounter Summary ---
Author Organization [facility] Address [address] [place] [address] Care Team Providers Care Nursing Clinical Director Name Role Phone Unavailable Primary Care Provider Unavailabl e Encounter Details Date Type Department Care Team (Late st Contact Info) Description 11/24/2023 Lab Requisition [facility] Pathology & Laboratory Medicine - [facility] [address] [place], [place] [address] Outr Resulting Lab, Provider Social History Tobacco [...] Comments CHLAMYDIA/N. GONORRHOEAE AMPLIFIED NUCLEIC ACID Routine 11/23/2023 10:13 EDT documented in this encounter Results * CHLAMYDIA/N. GONORRHOEAE AMPLIFIED NUCLEIC ACID (11/23/2023 10:13 EDT) Neisseria gonorrhoeae Result Negative Negative 11/25/2023 12:56 EDT [facility] Chlamydia trachomatis Result Negative Negative 11/25/2023 12:56 EDT [facility] Urine URINE / Unknown 11/23/2023 1 0:13 EDT 11/24/2023 17:40 EDT Provider Outr Resulting Lab MICROBIOLOGY - GENERAL ORDERABLES [facility] [address] [place] [address] documented in this encounter Visit Diagnoses Not on filedocumented in this encounter
--- OUTSIDE RECORDS SUMMARY | 2024-02-03 12:54 | XMS_ITS | Encounter Summary ---
Author Organization [facility] Address [address] [place] [address] Care Team Providers Care Shaper Hand Name Role Phone Unavailable Primary Care Provider Unavailabl e Encounter Details Date Type Department Care Team (Late st Contact Info) Description 11/23/2023 Lab Requisition [facility] Pathology & Laboratory Medicine - [facility] [address] [place] [address] Outr Resulting Lab, Provider Social History Tobacco [...] Procedure Name Priority Date/Time Associated Diagnosis Comments SYPHILIS SEROLOGY Routine 11/23/2023 10: 13 EDT LYME AB Routine 11/23/2023 10:13 EDT HEPATITIS C AB W REFLEX TO HCV RNA BY PCR Routine 11/23/2023 10:13 EDT documented in this encounter Results * SYPHILIS SEROLOGY (11/23/2023 10:13 EDT) Syphilis Serology Negative Negative 11/24/2023 9:43 EDT [facility] Blood VENOUS BLOOD / Unknown 11/23/2023 10:13 EDT 11/23/2023 22:08 EDT Provider Outr Resulting Lab IMMUNOLOGY A ND SEROLOGY ORDERABLES [facility] [address] [place] [address] * HEPATITIS C AB W REFLEX TO HCV RNA BY PCR (11/23/2023 10:13 EDT) Hep C Antibody Negative Negative 11/24/2023 10:08 EDT [facility] Blood VENOUS BLOOD / Unknown 11/23/2023 10:13 EDT 11/23/2023 22:08 EDT Provider Outr Resulting Lab CHEMISTRY & BLOOD GAS ORDERABLES [facility] [address] [place], [place] [id number] * LYME AB (11/23/2023 10:13 EDT) Lyme Ab Negative Negative 11/24/2023 9:37 EDT [facility] Blood VENOUS BLOOD / Unknown 11/23/2023 10:13 EDT 11/23/2023 22:08 EDT Provider Outr Resulting Lab IMMUNOLOGY A ND SEROLOGY ORDERABLES [facility] [address] [place], [place] [id number] documented in this encounter Visit Diagnoses Not on filedocumented in this encounter
--- OUTSIDE RECORDS SUMMARY | 2024-02-03 12:54 | XMS_ITS | Referral Summary ---
Author Organization [facility] Address [address] [place] [address] Care Team Providers Care Clothes Separator Name Role Phone Unavailable Primary Care Provider Unavailabl e Encounters Date Type Department Care Team Description 11/24/2023 Lab Requisition [facility] Pathology & Laboratory [address] [address] Outr Resulting Lab, Provider 11/23/2023 Lab Requisition [facility] Pathology & Laboratory [facility] [address] [place] [address] Outr Resulting Lab, Provider 11/23/2023 Lab Requisition [facility] Pathology & Laboratory [facility] [address] [place] [address] Outr Resulting Lab, Provider from Last 3 [...] SYPHILIS SEROLOGY Routine 11/23/2023 10: 13 EDT HEPATITIS C AB W REFLEX TO HCV RNA BY PCR Routine 11/23/2023 10:13 EDT LYME AB Routine 11/23/2023 10:13 EDT HIV 1/2 ANTIGEN AND ANTIBODY, 4TH GENERATION Routine 11/23/2023 10:13 EDT CHLAMYDIA/N. GONORRHOEAE AMPLIFIED NUCLEIC ACID Routine 11/23/2023 10:13 EDT from Last 3 Months Results * SYPHILIS SEROLOGY (11/23/2023 10:13 EDT) Syphilis Serology Negative Negative 11/24/2023 9:43 EDT [facility] Blood VENOUS BLOOD / Unknown 11/23/2023 10:13 EDT 11/23/2023 22:08 EDT Provider Outr Resulting Lab IMMUNOLOGY A ND SEROLOGY ORDERABLES [facility] [address] [place] [address] * LYME AB (11/23/2023 10:13 EDT) Lyme Ab Negative Negative 11/24/2023 9:37 EDT [facility] Blood VENOUS BLOOD / Unknown 11/23/2023 10:13 EDT 11/23/2023 22:08 EDT Provider Outr Resulting Lab IMMUNOLOGY A ND SEROLOGY ORDERABLES Performing Organization Address City/[facility]/ZIP Co de Phone Number [facility] [address] [place] [address] * CHLAMYDIA/N. GONORRHOEAE AMPLIFIED NUCLEIC ACID (11/23/2023 10:13 EDT) Neisseria gonorrhoeae Result Negative Negative 11/25/2023 12:56 EDT [facility] Chlamydia trachomatis Result Negative Negative 11/25/2023 12:56 EDT [facility] Urine URINE / Unknown 11/23/2023 1 0:13 EDT 11/24/2023 17:40 EDT Provider Outr Resulting Lab MICROBIOLOGY - GENERAL ORDERABLES Performing Organization Address [facility]/ZIP Co de Phone Number [facility] [address] [place] [address] * HEPATITIS C AB W REFLEX TO HCV RNA BY PCR (11/23/2023 10:13 EDT) Hep C Antibody Negative Negative 11/24/2023 10:08 EDT [facility] Blood VENOUS BLOOD / Unknown 11/23/2023 10:13 EDT 11/23/2023 22:08 EDT Provider Outr Resulting Lab CHEMISTRY & BLOOD GAS ORDERABLES Performing Organization Address [facility]/ZIP Co de Phone Number [facility] [address] [place], [place] [phone] * HIV 1/2 ANTIGEN AND ANTIBODY, 4TH GENERATION (11/23/2023 10:13 EDT) HIV 1 and 2 Antibody/p24 Antigen, 4th Generation Negative Negative 11/24/2023 10:01 EDT [facility] Comment:If acute HIV-1 infec tion is suspected in a high risk patient, submit plasma specimen for HIV-1 RNA quantitation test. Blood VENOUS BLOOD / Unknown 11/23/2023 10:13 EDT 11/23/2023 21:56 EDT Narrative [facility] - 11/24/2023 10:01 EDT Fourth Generation assay performed on the [employer] XPT. Provider Outr Resulting Lab IMMUNOLOGY A ND SEROLOGY ORDERABLES Performing Organization Address City/[facility]/ZIP Co de Phone Number [facility] [address] [place] [address] from Last 3 Months
--- OUTSIDE RECORDS SUMMARY | 2024-02-03 12:54 | XMS_ITS | Summary of Care ---
Author Organization [facility] Address [address] [place] [address] Care Team Providers Care Food Writer Name Role Phone PANKAJ YOUSSEF MD Primary Care Physician Encounter CHB_CSN [id number] Date(s): 07/08/20 - 07/08/20 [facility] [address] [place] [address] [facility] Discharge Disposition: Discharge Attending Physician: SHEILA BROOKS MD Referring Physician: [facility] Allergies, Adverse Reactions, Alerts Substance Reaction Severity Status codeine Nausea Active
--- OUTSIDE RECORDS SUMMARY | 2024-02-03 12:54 | XMS_ITS | Encounter Summary ---
Author Organization [facility] Address [address] [place] [address] Care Team Providers Care Two Way Radio Technician Name Role Phone Unavailable Primary Care Provider Unavailabl e Encounter Details Date Type Department Care Team (Late st Contact Info) Description 11/05/2020 Lab Requisition [facility] Pathology & Laboratory Medicine - [facility] [address] [place] [address] Outr Resulting Lab, Provider Social History Tobacco [...]
--- OUTSIDE RECORDS SUMMARY | 2024-02-03 12:54 | XMS_ITS | Encounter Summary ---
Author Organization [facility] Address [address] [place] [address] Care Team Providers Care Shiatsu Therapist Name Role Phone Unavailable Primary Care Provider Unavailabl e Encounter Details Date Type Department Care Team (Late st Contact Info) Description 11/06/2020 Lab Requisition [facility] Pathology & Laboratory Medicine - [facility] [address] [place] [address] Outr Resulting Lab, Provider Social History Tobacco [...] gonorrhoeae Result Negative Negative 11/07/2020 15:44 EDT [facility] Chlamydia trachomatis Result Negative Negative 11/07/2020 15:44 EDT [facility] Urine URINE / Unknown 11/05/2020 1 3:15 EDT 11/07/2020 7:20 EDT Provider Outr Resulting Lab MICROBIOLOGY - GENERAL ORDERABLES [facility] [address] [place] [address] documented in this encounter Visit Diagnoses Not on filedocumented in this encounter
--- OUTSIDE RECORDS SUMMARY | 2024-02-03 12:54 | XMS_ITS | Encounter Summary ---
Author Organization [facility] Address [address] [place] [address] Care Team Providers Care Service Desk Manager Name Role Phone Unavailable Primary Care Provider Unavailabl e Encounter Details Date Type Department Care Team (Late st Contact Info) Description 11/23/2023 Lab Requisition [facility] Pathology & Laboratory Medicine - [facility] [address], [place] [id number] Outr Resulting Lab, Provider Social History Tobacco [...] ANTIBODY, 4TH GENERATION Routine 11/23/2023 10:13 EDT documented in this encounter Results * HIV 1/2 ANTIGEN AND ANTIBODY, 4TH GENERATION (11/23/2023 10:13 EDT) HIV 1 and 2 Antibody/p24 Antigen, 4th Generation Negative Negative 11/24/2023 10:01 EDT [facility] Comment:If acute HIV-1 infec tion is suspected in a high risk patient, submit plasma specimen for HIV-1 RNA quantitation test. Blood VENOUS BLOOD / Unknown 11/23/2023 10:13 EDT 11/23/2023 21:56 EDT Narrative [facility] - 11/24/2023 10:01 EDT Fourth Generation assay performed on the Siemens Centaur XPT. Provider Outr Resulting Lab IMMUNOLOGY A ND SEROLOGY ORDERABLES [facility] [address] [place] [address] documented in this encounter Visit Diagnoses Not on filedocumented in this encounter
--- OUTSIDE RECORDS SUMMARY | 2024-02-03 12:54 | XMS_ITS | Clinical Summary ---
Author Organization [facility] Address [address] [place] [address] Care Team Providers Care Epidemiology Intern Name Role Phone Unavailable Primary Care Provider Unavailabl e Encounters Date Type Department Care Team Description 11/24/2023 Lab Requisition [facility] Pathology & Laboratory [address] [address] Outr Resulting Lab, Provider 11/23/2023 Lab Requisition [facility] Pathology & Laboratory [address] [address] Outr Resulting Lab, Provider 11/23/2023 Lab Requisition [facility] Pathology & Laboratory [address] [address] Outr Resulting Lab, Provider from Last 3 [...] (1 of 3 - 19+ 3-dose series) 2009 COVID-19 Vaccine (2022- season) 2023 Hepatitis C Screen Completed 11/23/2023, 05/26/2023 Procedures Procedure Name Priority Date/Time Associated [...] Syphilis Serology Negative Negative 11/24/2023 9:43 EDT [facility] Blood VENOUS BLOOD / Unknown 11/23/2023 10:13 EDT 11/23/2023 22:08 EDT Provider Outr Resulting Lab IMMUNOLOGY A ND SEROLOGY ORDERABLES Performing Organization Address City/[facility]/ZIP Co de Phone Number [facility] [address] [place] [address] * LYME AB (11/23/2023 10:13 EDT) Lyme Ab Negative Negative 11/24/2023 9:37 EDT [facility] Blood VENOUS BLOOD / Unknown 11/23/2023 10:13 EDT 11/23/2023 22:08 EDT Provider Outr Resulting Lab IMMUNOLOGY A ND SEROLOGY ORDERABLES Performing Organization Address [facility]/ZIP Co de Phone Number [facility] [address] [place] [address] * CHLAMYDIA/N. GONORRHOEAE AMPLIFIED NUCLEIC ACID (11/23/2023 10:13 EDT) Neisseria gonorrhoeae Result Negative Negative 11/25/2023 12:56 EDT [facility] Chlamydia trachomatis Result Negative Negative 11/25/2023 12:56 EDT [facility] Urine URINE / Unknown 11/23/2023 1 0:13 EDT 11/24/2023 17:40 EDT Provider Outr Resulting Lab MICROBIOLOGY - GENERAL ORDERABLES Performing Organization Address City/[facility]/ZIP Co de Phone Number [facility] [address] [place], [place] [phone] * HEPATITIS C AB W REFLEX TO HCV RNA BY PCR (11/23/2023 10:13 EDT) Hep C Antibody Negative Negative 11/24/2023 10:08 EDT [facility] Blood VENOUS BLOOD / Unknown 11/23/2023 10:13 EDT 11/23/2023 22:08 EDT Provider Outr Resulting Lab CHEMISTRY & BLOOD GAS ORDERABLES Performing Organization Address [facility] Co de Phone Number [facility] [address] [place], [place] [phone] * HIV 1/2 ANTIGEN AND ANTIBODY, 4TH GENERATION (11/23/2023 10:13 EDT) HIV 1 and 2 Antibody/p24 Antigen, 4th Generation Negative Negative 11/24/2023 10:01 EDT [facility] Comment:If acute HIV-1 infec tion is suspected in a high risk patient, submit plasma specimen for HIV-1 RNA quantitation test. Blood VENOUS BLOOD / Unknown 11/23/2023 10:13 EDT 11/23/2023 21:56 EDT Narrative [facility] - 11/24/2023 10:01 EDT Fourth Generation assay performed on the Siemens Echoing Greenaur XPT. Provider Outr Resulting Lab IMMUNOLOGY A ND SEROLOGY ORDERABLES Performing Organization Address [facility]/ZIP Co de Phone Number [facility] [address] [place] [address] from Last 3 Months
--- OUTSIDE RECORDS SUMMARY | 2024-02-03 12:54 | XMS_ITS | Encounter Summary ---
Author Organization [facility] Address [address] [place] [address] Care Team Providers Care Refrigerator Mover Name Role Phone Unavailable Primary Care Provider Unavailabl e Encounter Details Date Type Department Care Team (Late st Contact Info) Description 05/26/2023 Lab Requisition [facility] Pathology & Laboratory Medicine - [facility] [address] [place], [place] [address] Outr Resulting Lab, Provider Social History Tobacco [...] 4th Generation Negative Negative 05/26/2023 21:00 EST [facility] Comment:If acute HIV-1 infec tion is suspected in a high risk patient, submit plasma specimen for HIV-1 RNA quantitation test. Blood VENOUS BLOOD / Unknown 05/26/2023 8:18 EST 05/26/2023 16:48 EST Narrative [facility] - 05/26/2023 21:00 EST Fourth Generation assay performed on the Siemens Centaur XPT. Provider Outr Resulting Lab IMMUNOLOGY A ND SEROLOGY ORDERABLES [facility] [address] [place] [address] documented in this encounter Visit Diagnoses Not on filedocumented in this encounter
--- OUTSIDE RECORDS SUMMARY | 2024-02-03 12:54 | XMS_ITS | Encounter Summary ---
Author Organization [facility] Address [address] [place] [address] Care Team Providers Care Assistant Director Of Residence Life Name Role Phone Unavailable Primary Care Provider Unavailabl e Encounter Details Date Type Department Care Team (Late st Contact Info) Description 10/09/2019 Lab Requisition [facility] Pathology & Laboratory Medicine - [facility] [address] [place] [address] Outr Resulting Lab, Provider Social History Tobacco [...] rt-PCR Result NEGATIVE Negative 10/10/2019 12:10 EDT [facility] Comment: 2019-novel Coronavirus (2019-nCoV) [...] in accordance with CLIA regulations, [employer] (CAP) guidelines (Jul 27, 2019), and FDA guidance (Jul 08, 2019). This test is only for use under the Food and Drug Administration's Emergency Use Authorization. Swab ENTIRE NASOPHARYNX / Unknown 10/09/2019 11:32 EDT 10/09/2019 15:43 EDT Provider Outr Resulting Lab MICROBIOLOGY - GENERAL ORDERABLES [facility], [place] * COVID-19 TESTING (10/09/2019 11:32 EDT) [facility] COVID-19 rt-PCR Result NEGATIVE Negative 10/10/2019 14:51 EDT [facility] Comment: 2019-novel Coronavirus (2019-nCoV) not detected [...] in accordance with CLIA regulations, [employer] (CAP) guidelines (Jul 27, 2019), and FDA guidance (Jul 08, 2019). This test is only for use under the Food and Drug Administration's Emergency Use Authorization. Performing Lab [facility] 10/10/2019 14:51 EDT [facility] Swab ENTIRE NASOPHARYNX / Unknown 10/09/2019 11:32 EDT 10/09/2019 15:43 EDT Provider Outr Resulting Lab MICROBIOLOGY - GENERAL ORDERABLES [facility] [address] [place] [address] [facility] [place], [place] documented in this encounter Visit Diagnoses Not on filedocumented in this encounter
--- OUTSIDE RECORDS SUMMARY | 2024-02-03 12:54 | XMS_ITS | Continuity of Care Document ---
Author Organization [place] - [facility] Hyper Urban Level User [facility] [employer] [facility], [facility] Address [address] [facility] [place] [address] [place] [address] Assessment No assessment recorded. Plan of Treatment Reminders Order Date Submit Date Provider Last Modified By Organization Details Last Modified Time Details Appointments None recorded. Lab HIV (1+2) Ab screen, serum 2023 024 [facility]), [address] [place] [address] [place], [address], 4 11:53:53 RPR (rapid plasma reagin), serum 2023 024 [facility] [address] [place] [address] [place], [address], 4 11:54:21 hepatitis C virus Ab, serum 2023 024 [facility] [address] [place] [address] [place], [address], 4 11:54:14 venipunctur e 2023 024 [email or web address] Not available 4 10:45:33 lyme antibody screen, EIA/wilma, serum 2023 024 [facility] [address] [place] [address] [place], [address], 4 11:54:01 CT + NG RNA, urine 2023 024 [facility]), [address] [place] [address] [place], [address], 14:09:38 Referral None recorded. Procedures None recorded. Surgeries None recorded. Imaging None recorded. Medication Orders naproxen 500 mg tablet 2023 024 [facility] [address] [place], [address], 10:57:52 doxycycline hyclate 100 mg capsule 2023 024 [facility], [address] [place], [address], 10:57:49 Patient TargetsNo targets recorded. Patient Instructions Encounter Date Encounter Id Patient Instructions Last Modified By Organization Details Last Modified Time 11/23/2023 [id number] Today, due to known exposure, we will [...] full 28 days for possible Lyme arthritis. [email or web address] Not available 11/23/2023 10:35:04 Reason for Referral None Reported. Medical Equipment None Reported. Allergies Allergen ID Allergen Name Allergen Category Reaction Reaction Severity Criticality Documentation Date Start Date Code Code System Note Provider Name and Address Organization Details Recorded Time 04021 codeine medicatio n nausea mild low 11/23/2023 2672 RxNorm GÓMEZ PRICE MA [facility], [place] - [facility]. 09:50:54 Medications Name Sig Start Date Stop [...] and Address Organization Details Last Updated DateTime 177.8 cm 28.7 kg/m2 31933.4 7 g 17 /min 98.8 [degF] 95 % 95 % 89 /min 147 mm[Hg] 79 mm[Hg] GÓMEZ PRICE MA [facility] 09:53:40 Social History Question Answer Notes LastModified by Organizat ion Details LastModified Time Tobacco Smoking Status Never Smoker NATACHA WYNN [facility] 11/23/2023 09:51:32 What Was The Date Of Your Most Recent Tobacco Screening? 11/23/2023 [email or web address] Information not available 11/23/2023 Has Tobacco Cessation Counseling Been Provided? No Information not available 11/23/2023 Do You Or Have You Ever Used Any Other Forms Of Tobacco Or Nicotine? No [email or web address] Information not available 11/23/2023 Sex: Unknown Functional Status None recorded. Mental Status None recorded. Family History Nothing Reported. Medical History No medical history recorded. Immunizations Vaccine Type Date Status Provider Name and Address Organization Details Recorded Time COVID-19, mRNA, LNP-S, bivalent, PF, 50 mcg/0.5 mL or 25mcg/0.25 mL dose 09/08/2020 completed NATACHA WYNN [facility] 11/23/2023 09:23:36 COVID-19, mRNA, LNP-S, bivalent, PF, 50 mcg/0.5 mL or 25mcg/0.25 mL dose 10/02/2020 completed NATACHA WYNN [facility] 11/23/2023 09:23:42 COVID-19, mRNA, LNP-S, bivalent, PF, 50 mcg/0.5 mL or 25mcg/0.25 mL dose 04/25/2021 completed NATACHA WYNN, [facility] 11/23/2023 09:23:47 Tdap 07/04/2019 completed NATACHA WYNN, [facility] 11/23/2023 09:24:01 Past Encounters Encounter ID Performer Location Encounter Start Date Encounter Closed Date Diagnosis/Indication Diagnosis SNOMED-CT Code Diagnosis ICD10 Code [id number] DEBI SILVERIO [address] [place] [address] 11/23/2023 09:10:58 11/23/2023 10:52:49 Exposure to chlamydia 9451746960 104 Z20.2 Venereal d isease screening 249178191 Z11.3 Swelling o f knee joint 843882689 M25.469 Health Concerns Section Related Observation LastModified by Organization Detai ls LastModified Time None Recorded Concern Status LastModified by Organization Details LastModified Time None Recorded Payers Encounter Date Sequence Insurance Name Policy Number Policy Gutierrez Covered Member ID Gutierrez Member ID Guarantor Name 11/23/2023 1 [place] [employer] [place] David Morrow [id number] David Morrow Notes Date Note Type Note [...] mild risk for tick exposure. DEBI SILVERIO [address], [place], [address], [facility]. 11/23/2023 10:58:00
--- OUTSIDE RECORDS SUMMARY | 2024-02-03 12:54 | XMS_ITS | Data Portability ---
Author Organization [place] - [facility], [facility] [place] [address] Assessment No assessment recorded. Plan of Treatment Reminders Order Date Submit Date Provider Last Modified By Organization Details Last Modified Time Details Appointments None recorded. Lab HIV (1+2) Ab screen, serum 2023 024 [facility] ([facility]), [address] [place] [address] [place], [address], 4 11:53:53 RPR (rapid plasma reagin), serum 2023 024 [facility]), [address] [place] [address] [place], [address], 4 11:54:21 hepatitis C virus Ab, serum 2023 024 [facility] [address] [place] [address] [place], [address], 4 11:54:14 venipunctur e 2023 024 [email or web address] Not available 4 10:45:33 lyme antibody screen, EIA/wilma, serum 2023 024 [facility] [address] [place] [address] [place], [address], 4 11:54:01 CT + NG RNA, urine 2023 024 [facility]), [address] [place] [address], [place], [address], 14:09:38 Referral None recorded. Procedures None recorded. Surgeries None recorded. Imaging None recorded. Medication Orders naproxen 500 mg tablet 2023 024 [facility], [address] [place], [address], 4 10:57:52 doxycycline hyclate 100 mg capsule 2023 024 [facility], [address] [facility], [place], [address], 4 10:57:49 Patient TargetsNo targets recorded. Patient Instructions Encounter Date Encounter Id Patient Instructions Last Modified By Organization Details Last Modified Time 11/23/2023 [id number] Today, due to known exposure, we will [...] full 28 days for possible Lyme arthritis. [email or web address] Not available 11/23/2023 10:35:04 Reason for Referral None Reported. Results Created Date Observation Date Name Description Value Unit Range Abnormal Flag Note LastModifiedBy Organization Detail LastModifiedTime 11/23/19 24 11/24/2023 HIV-1 /2 AG AB SCREE N HIV-1/2 Ag Ab screen Negati ve negati ve If acute HIV-1 infec tion is suspe cted in a high risk patie nt, submi t plasm a speci men for HIV-1 RNA quant itati on test. Fourt h Gener ation assay perfo rmed on the [employer] XPT. Test perfo rmed or refer red by [facility] [address] [place] [address] Not Available [facility] ([facility]) [address] [place] [address] [place], [address], 11/24/2023 11:36:18 11/23/19 24 11/24/2023 LYME AB W RFLX TO LYME CONFI RM lyme Ab W rflx to lyme confirm Negati ve negati ve Test perfo rmed or refer red by [facility] [address] [place] [address] Not Available [facility] ([facility]) [address] [place] [address] [place], [address], 11/24/2023 11:36:19 11/23/19 24 11/24/2023 HEPAT ITIS C AB W RFLX HCV PCR hepatitis C Ab W rflx HCV PCR Negati ve negati ve Test perfo rmed or refer red by [facility] [address] [place] [address] Not Available [facility] ([facility]) [address] [place] [address] [place], [address], 11/24/2023 11:36:20 11/23/19 24 11/24/2023 SYPHI LIS SEROL OGY (RPR) syphilis serology (RPR) Negati ve negati ve Test perfo rmed or refer red by [facility] [address] [place] [address] Not Available [facility] ([facility]) [address] [place] [address] [place], [address], 11/24/2023 11:36:20 11/23/19 24 11/24/2023 LYME AB W RFLX TO LYME CONFI RM lyme Ab W rflx to lyme confirm Negati ve negati ve Test perfo rmed or refer red by [facility] [address], [place] [address] Not Available [facility] ([facility]) [address] [place] [address] [place], [address], 11/24/2023 11:36:22 11/23/19 24 11/24/2023 HEPAT ITIS C AB W RFLX HCV PCR hepatitis C Ab W rflx HCV PCR Negati ve negati ve Test perfo rmed or refer red by [facility] [address], [facility] [place] [address] Not Available [facility] ([facility]) [address] [place] [address] [place], [address], 11/24/2023 11:36:22 11/23/19 24 11/24/2023 SYPHI LIS SEROL OGY (RPR) syphilis serology (RPR) Negati ve negati ve Test perfo rmed or refer red by [facility] [address], [place] [address] Not Available [facility] ([facility]) [address] [place] [address] [place], [address], 11/24/2023 11:36:22 11/23/19 24 11/24/2023 LYME AB W RFLX TO LYME CONFI RM lyme Ab W rflx to lyme confirm Negati ve negati ve Test perfo rmed or refer red by [facility] [address], [facility] [place] [address] Not Available [facility] ([facility]) [address] [place] [address] [place], [address], 11/24/2023 11:36:24 11/23/19 24 11/24/2023 HEPAT ITIS C AB W RFLX HCV PCR hepatitis C Ab W rflx HCV PCR Negati ve negati ve Test perfo rmed or refer red by [facility] [address], [place] [address] Not Available [facility] ([facility]) [address] [place] [address] [place], [address], 11/24/2023 11:36:24 11/23/19 24 11/24/2023 SYPHI LIS SEROL OGY (RPR) syphilis serology (RPR) Negati ve negati ve Test perfo rmed or refer red by [facility] [address], [place] [address] Not Available [facility] ([facility]) [address] [place] [address] [place], [address], 11/24/2023 11:36:24 11/23/19 24 11/25/2023 CHLAM YDIA/ GC AMPLI FIED RNA chlamydia result Negati ve negati ve Sourc e:uri ne Test perfo rmed or refer red by [facility] [address], [place] [address] Not Available [facility] ([facility]) [address] [place] [address] [place], [address], 11/25/2023 13:43:15 11/23/19 24 11/25/2023 CHLAM YDIA/ GC AMPLI FIED RNA GC result Negati ve negati ve Not Available [facility] ([facility]) [address] [place] [address] [place], [address], 11/25/2023 13:43:15 Result Notes None recorded. Medical Equipment None Reported. Allergies Allergen ID Allergen Name Allergen Category Reaction Reaction Severity Criticality Documentation Date Start Date Code Code System Note Provider Name and Address Organization Details Recorded Time 58045 codeine medicatio n nausea mild low 11/23/2023 9530 RxNorm GÓMEZ PRICE MA [facility], [place] - [facility]. 09:50:54 Medications [...] Last Updated DateTime 177.8 cm 28.7 kg/m2 98206.4 7 g 17 /min 98.8 [degF] 95 % 95 % 89 /min 147 mm[Hg] 79 mm[Hg] GÓMEZ PRICE MA [facility] 09:53:40 Social History Question Answer Notes LastModified by Organizat ion Details LastModified Time Tobacco Smoking Status Never Smoker NATACHA WYNN [facility] 11/23/2023 09:51:32 What Was The Date Of Your Most Recent Tobacco Screening? 11/23/2023 [email or web address] Information not available 11/23/2023 Has Tobacco Cessation Counseling Been Provided? No [email or web address] Information not available 11/23/2023 Do You Or Have You Ever Used Any Other Forms Of Tobacco Or Nicotine? No [email or web address] Information not available 11/23/2023 Sex: Unknown Functional Status None recorded. Mental Status None recorded. Family History Nothing Reported. Medical History No medical history recorded. Immunizations Vaccine Type Date Status Provider Name and Address Organization Details Recorded Time COVID-19, mRNA, LNP-S, bivalent, PF, 50 mcg/0.5 mL or 25mcg/0.25 mL dose 09/08/2020 completed NATACHA WYNN [facility] 11/23/2023 09:23:36 COVID-19, mRNA, LNP-S, bivalent, PF, 50 mcg/0.5 mL or 25mcg/0.25 mL dose 10/02/2020 completed NATACHA WYNN [facility] 11/23/2023 09:23:42 COVID-19, mRNA, LNP-S, bivalent, PF, 50 mcg/0.5 mL or 25mcg/0.25 mL dose 04/25/2021 completed NATACHA WYNN, [facility] 11/23/2023 09:23:47 Tdap 07/04/2019 completed NATACHA WYNN, [facility] 11/23/2023 09:24:01 Past Encounters Encounter ID Performer Location Encounter Start Date Encounter Closed Date Diagnosis/Indication Diagnosis SNOMED-CT Code Diagnosis ICD10 Code [id number] DEBI SILVERIO [address] [place] [address] 11/23/2023 09:10:58 11/23/2023 10:52:49 Exposure to chlamydia 0246037116 104 Z20.2 Venereal d isease screening 260858848 Z11.3 Swelling o f knee joint 366286637 M25.469 Health Concerns Section Related Observation LastModified by Organization Detai ls LastModified Time None Recorded Concern Status LastModified by Organization Details LastModified Time None Recorded Advance Directives Directive None Recorded Payers Encounter Date Sequence Insurance Name Policy Number Policy Gutierrez Covered Member ID Gutierrez Member ID Guarantor Name 11/23/2023 1 [place] [employer] [place] David Morrow [id number] David Morrow Notes Date Note Type Note [...] tick exposure. DEBI SILVERIO [address], [place], [address], [facility]. 11/23/2023 10:58:00
--- OUTSIDE RECORDS SUMMARY | 2024-02-03 12:54 | XMS_ITS | Encounter Summary ---
Author Organization [facility] Address [address] [place] [address] Care Team Providers Care Drywall Finisher Foreman Name Role Phone Unavailable Primary Care Provider Unavailabl e Encounter Details Date Type Department Care Team (Late st Contact Info) Description 05/26/2023 Lab Requisition [facility] Pathology & Laboratory Medicine - [facility] [address] [place] [address] Outr Resulting Lab, Provider Social History Tobacco [...] C Antibody Negative Negative 05/26/2023 19:26 EST [facility] LABORATORY SERVICES Blood VENOUS BLOOD / Unknown 05/26/2023 8:18 EST 05/26/2023 16:48 EST Provider Outr Resulting Lab CHEMISTRY & BLOOD GAS ORDERABLES [facility]OR[facility]ORY SERVICES [address] [place] [address] documented in this encounter Visit Diagnoses Not on filedocumented in this encounter
--- OUTSIDE RECORDS SUMMARY | 2024-02-03 12:55 | XMS_ITS | Encounter Summary ---
Author Organization [facility] Address [phone] [facility] [place] [address] Care Team Providers Care Restaurant Operations Manager Name Role Phone Shant Bradford DO Primary Care Provider + Reason for Visit * Consultation (Routine) - Authorized Specialty Diagnoses / Procedures Referred By Contact Referred To Contact Orthopedic Surgery / Orthopedics Diagnoses Left knee f/u with x-ray Procedures ESTABLISHED PATIENT Shant Bradford DO [address] [place] [address] [facility] Orthopedics [facility] [address] [place] [address] Referral ID Status Reason Start Date Expiration Date V isits Requested Visits Authorized [id number] Authorized 03/31/2023 03/31/2024 99 99 Encounter Details Date Type Department Care Team (Latest Contact Info) Description 03/31/2023 3:00 PM EST Office Visit [facility] - Orthopedics - [place] [address] [place] [address] Adriana Ragsdale MD [address] [place] [address] [email or web address] Status post total left knee replacement (Primary [...] MD, ASHLEY Director of Research, Arthroplasty Services Rust David Talboter ?DATE OF : @ DATE OF SERVICE: [...] Orthopaedic attending This note was dictated using [employer] software. While it was briefly proofread prior [...] and may be visible in your [facility] [place] portal. Get started Proms Promis Physical Function [...] knee documented in this encounter Care Teams Restaurant Operations Manager Relationship Specialty Start Date End Date Shant Bradford Abner [address] [place] [address] PCP - General 07/16/20 documented as of this encounter Additional Source Comments The information contained in this document represents components of the legal health record. It is not the complete legal health record.[facility]
--- OUTSIDE RECORDS SUMMARY | 2024-02-03 12:55 | XMS_ITS | Encounter Summary ---
Author Organization [facility] Address [phone] [facility] [place] [address] Care Team Providers Care General Lot Attendant Name Role Phone Shant Bradford DO Primary Care Provider + Encounter Details Date Type Department Care Team (Latest Contact Info) Description 06/15/2022 3:11 PM EST - 06/15/2022 11:59 PM EST Hospital Encounter [facility] MS Diagnostic X-ray Imaging, [place] [address] [place] [address] Mary Nava, PAAlexaC [address] [place] [address] [email or web address] Discharge Disposition: Home or Self Care Social [...] 1-2 VIEWS (LEFT) ; XR BONE LENGTH [id number] FINDINGS: Left lower extremity measures 87.4 cm. [...] replacement documented in this encounter Care Teams General Lot Attendant Relationship Specialty Start Date End Date Shant Bradford DO [address] [place] [address] PCP - General 07/16/20 documented as of this encounter Additional Source Comments The information contained in this document represents components of the legal health record. It is not the complete legal health record.[facility]
--- OUTSIDE RECORDS SUMMARY | 2024-02-03 12:55 | XMS_ITS | Encounter Summary ---
Author Organization [facility] Address [phone] [facility] [place] [address] Care Team Providers Care Waitstaff Name Role Phone Shant Bradford DO Primary Care Provider + Encounter Details Date Type Department Care Team (Late st Contact Info) Description 03/25/2023 Orders Only [facility] Department of Orthopaedics [address] [place] [address] Adriana Ragsdale MD [address] [place] [address] [email or web address] Chronic pain of left knee (Primary Dx) [...] clinician's provided indication for this examination in [facility]: Pain COMPARISON: XR KNEE 1-2 VIEWS (LEFT) [...] clinician's provided indication for this examination in [facility]:Pain COMPARISON: XR KNEE 1-2 VIEWS (LEFT) ; [...] complication. Adriana Ragsdale MD IMG XR LOWER EX TREMITY documented in this encounter Visit Diagnoses Diagnosis Chronic pain of left knee- Primary Chronic pain of left knee documented in this encounter Care Teams Waitstaff Relationship Specialty Start Date End Date Shant Bradford DO [address] [place] [address] PCP - General 07/16/20 documented as of this encounter Additional Source Comments The information contained in this document represents components of the legal health record. It is not the complete legal health record.[facility]
--- OUTSIDE RECORDS SUMMARY | 2024-02-03 12:55 | XMS_ITS | Encounter Summary ---
Author Organization [facility] Address [phone] [facility] [place] [address] Care Team Providers Care Weighter Name Role Phone Shant Bradford DO Primary Care Provider + Encounter Details Date Type Department Care Team (Latest Contact Info) Description 03/31/2023 2:24 PM EST - 03/31/2023 11:59 PM EST Hospital Encounter [address] [address] Adriana Ragsdale MD [address] [place] [address] [email or web address] Discharge Disposition: Home or Self Care Social [...] knee documented in this encounter Care Teams Weighter Relationship Specialty Start Date End Date Shant Bradford DO [address] [place] [address] PCP - General 07/16/20 documented as of this encounter Additional Source Comments The information contained in this document represents components of the legal health record. It is not the complete legal health record.[facility]
--- OUTSIDE RECORDS SUMMARY | 2024-02-03 12:56 | XMS_ITS | Encounter Summary ---
Author Organization [facility] Address [phone] [place] [address] Care Team Providers Care Senior Bookkeeper Name Role Phone Shant Bradford DO Primary Care Provider + Encounter Details Date Type Department Care Team (Late st Contact Info) Description 05/12/2022 Documentation [facility] Orthopedics - [place] [address] [address] Mary Nava PA-C [address] [place], [place] [id number] [email or web address] Social History Tobacco Use Types Packs/Day Years [...] update us with pictures of the wound Critz for follow-up for the wound care. Mary Nava PA-C Orthopaedic Department [facility] [address] [place] [address], [place] [address] Office: [phone] documented in this encounter Plan of Treatment Not on file documented as of this encounter Visit Diagnoses Not on filedocumented in this encounter Care Teams Senior Bookkeeper Relationship Specialty Start Date End Date Shant Bradford DO [address] [place] [address] PCP - General 07/16/20 documented as of this encounter Additional Source Comments The information contained in this document represents components of the legal health record. It is not the complete legal health record.[facility]
--- OUTSIDE RECORDS SUMMARY | 2024-02-03 12:56 | XMS_ITS | Encounter Summary ---
Author Organization [facility] Address [phone] [facility] [place] [address] Care Team Providers Care Music Arranger Name Role Phone Shant Bradford DO Primary Care Provider + Reason for Referral * Physical Therapy (Within 1 month) - Closed Specialty Diagnoses / Procedures Referred By Charla t Referred To Contact Diagnoses Status post total left knee replacement Mary Nava PA-C [address] [place] [address] Email: [email or web address] Referral ID Status Reason Start Date Expiration Date Visits Re quested Visits Authorized [id number] Closed 05/06/2022 05/06/2023 1 1 Encounter Details Date Type Department Care Team (Late Contact Info) Description 05/06/2022 Orders Only [facility] Department [facility]edics [address] [place] [address] Mary Nava PA-C [address] [place] [address] [email or web address] Status post total left knee replacement [...] Primary documented in this encounter Care Teams Music Arranger Relationship Specialty Start Date End Date Shant Bradford DO [address] [place] [address] PCP - General 07/16/20 documented as of this encounter Additional Source Comments The information contained in this document represents components of the legal health record. It is not the complete legal health record.[facility]
--- OUTSIDE RECORDS SUMMARY | 2024-02-03 12:56 | XMS_ITS | Encounter Summary ---
Author Organization [facility] Address [phone] [facility] [place] [address] Care Team Providers Care Nremt Name Role Phone Shant Bradford DO Primary Care Provider + Encounter Details Date Type Department Care Team ([facility] Contact Info) Description 05/08/2022 Telephone [facility] [address] [place] [address] Zackary Garcia MD [address] [place] [address] [email or web address] Social History Tobacco Use Types Packs/Day Years [...] note were not included. David Odalys // [phone] Called by patient s/p TKA on 05/05/22 [...] plan. Zackary Garcia MD Orthopaedic Resident, PGY1 [facility] Orthopaedic Residency Program P: [phone] For further follow up regarding inpatients, please page [phone] [facility], [phone] at [facility], or the resident/fellow rounding on the patient daily. documented in this encounter Plan of Treatment Not on file documented as of this encounter Visit Diagnoses Not on filedocumented in this encounter Care Teams Nremt Relationship Specialty Start Date End Date Shant Bradford DO [address] [place] [address] PCP - General 07/16/20 documented as of this encounter Additional Source Comments The information contained in this document represents components of the legal health record. It is not the complete legal health record.[facility]
--- OUTSIDE RECORDS SUMMARY | 2024-02-03 12:56 | XMS_ITS | Encounter Summary ---
Author Organization [facility] Address [phone] [facility] [place] [address] Care Team Providers Care Surgical Consultant Name Role Phone Shant Bradford DO Primary Care Provider + Reason for Visit * Reason Comments Post-op L knee dos 05/05 dls 12/18 by Mary Encounter Details Date Type Department Care Team ([facility] Contact Info) Description 05/18/2022 3:15 PM EST Office Visit [facility] Department of Orthopaedics [address] [place] [address] Adriana Ragsdale MD [address] [place] [address] [email or web address] Status post total left knee replacement (Primary [...] MD, ASHLEY Director of Research, Arthroplasty Services [facility] David Morrow ?DATE OF : @ [...] during the day. Patient will switch to [place] outpatient physical therapy from [place] very soon. Patient would like to work [...] Orthopaedic attending This note was dictated using [employer] software. While it was briefly proofread prior [...] Primary documented in this encounter Care Teams Surgical Consultant Relationship Specialty Start Date End Date Shant Bradford DO [address] [place] [address] PCP - General 07/16/20 documented as of this encounter Additional Source Comments The information contained in this document represents components of the legal health record. It is not the complete legal health record.[facility]
--- OUTSIDE RECORDS SUMMARY | 2024-02-03 12:57 | XMS_ITS | Encounter Summary ---
Author Organization [facility] Address [phone] [facility] [place] [address] Care Team Providers Care Materials Planning Analyst Name Role Phone Shant Bradford DO Primary Care Provider + Reason for Visit * Reason Onset Date Comments Advice on Treatment Plan 12/18/2020 Encounter Details Date Type Department Care Team ([facility] Contact Info) Description 12/18/2020 Telephone [facility] Orthopedics [address] [address] Kilo Goldman LPN [email or web address] Advice on Treatment Plan Social History Tobacco [...] AM EDT Patient left a msg on [facility] requesting a call back from Dr. Hein's office regarding receving his imaging on his left and right knee. He would like a call back to [phone]. Kilo Goldman LPN documented in this encounter Plan of Treatment Not on file documented as of this encounter Visit Diagnoses Not on filedocumented in this encounter Care Teams Materials Planning Analyst Relationship Specialty Start Date End Date Shant Bradford AbnerDO [address] [place] [address] PCP - General 07/16/20 documented as of this encounter Additional Source Comments The information contained in this document represents components of the legal health record. It is not the complete legal health record.[facility]
--- OUTSIDE RECORDS SUMMARY | 2024-02-03 12:57 | XMS_ITS | Encounter Summary ---
Author Organization [facility] Address [phone] [place] [address] Care Team Providers Care Rental Car Deliverer Name Role Phone Shant Bradford DO Primary Care Provider + Encounter Details Date Type Department Care Team (Latest Contact Info) Description 04/28/2022 10:00 AM EST Pre-Admission Testing [facility] [address] [place] [address] Adriana Ragsdale MD [address] [place] [address] [email or web address] Anxiety; Gastroesophageal reflux disease; Asthma; Depressive disorder [...] in this encounter Progress Notes * Shasha Mcmillan, CLRAK - 04/28/2022 10:00 AM EST Images from the original note were not included. Pre-Procedure Evaluation HONING MACHINE TRY OUT SETTER HONING MACHINE TRY OUT SETTER preoperative assessment conducted via phone interview. Subjective: [...] VITDT 22 04/10/2022 MRSA/MSSA pre-op PCR Order: [id number] Collected 04/10/2022 12:30 ?? Status: Final result [...] medication instructions sent to patient gateway and HONING MACHINE TRY OUT SETTER reviewed all instructions with patient and patient [...] classified documented in this encounter Care Teams Rental Car Deliverer Relationship Specialty Start Date End Date Shant Bradford DO [address] [place] [address] PCP - General 07/16/20 documented as of this encounter Additional Source Comments The information contained in this document represents components of the legal health record. It is not the complete legal health record.[facility]
--- OUTSIDE RECORDS SUMMARY | 2024-02-03 12:57 | XMS_ITS | Encounter Summary ---
Author Organization [facility] Address [phone] [facility] [place] [address] Care Team Providers Care Upward Bound Director Name Role Phone Shant Bradford DO Primary Care Provider + Encounter Details Date Type Department Care Team ([facility] st Contact Info) Description 10/18/2020 Orders Only [facility] - ([facility]) Primary Care [address] [address] ProviderVicky MD [address] [place] [address] Social History Tobacco Use Types Packs/Day [...] on filedocumented in this encounter Care Teams Upward Bound Director Relationship Specialty Start Date End Date Shant Bradford DO [address] [place] [address] PCP - General 07/16/20 documented as of this encounter Additional Source Comments The information contained in this document represents components of the legal health record. It is not the complete legal health record.[facility]
--- OUTSIDE RECORDS SUMMARY | 2024-02-03 12:57 | XMS_ITS | Encounter Summary ---
Author Organization [facility] Address [phone] [facility] [place] [address] Care Team Providers Care Data Analytics Architect Name Role Phone Shant Bradford DO Primary Care Provider + Encounter Details Date Type Department Care Team (Late st Contact Info) Description 05/05/2022 Procedure Pass BWF Periop 6th floor [address] [place] [address] Social History Tobacco Use Types Packs/Day Years [...] on filedocumented in this encounter Care Teams Data Analytics Architect Relationship Specialty Start Date End Date Shant Bradford DO [address] [place] [address] PCP - General 07/16/20 documented as of this encounter Additional Source Comments The information contained in this document represents components of the legal health record. It is not the complete legal health record.[facility]
--- OUTSIDE RECORDS SUMMARY | 2024-02-03 12:57 | XMS_ITS | Encounter Summary ---
Author Organization [facility] Address [phone] [facility] [place] [address] Care Team Providers Care Bottle Blowing Machine Tender Name Role Phone Shant Bradford DO Primary Care Provider + Encounter Details Date Type Department Care Team ([facility] [address] Contact Info) Description 08/05/2020 Telephone [facility] [address] [place] [address] Delvis Kuhn MD [address] [place] [address] [email or web address] Social History Tobacco Use Types Packs/Day [...] has cancelled his MRI appointment in [facility] and has scheduled a MRI in [place] sent will have the result sent in. documented in this encounter Plan of Treatment Not on file documented as of this encounter Visit Diagnoses Not on filedocumented in this encounter Care Teams Bottle Blowing Machine Tender Relationship Specialty Start Date End Date Shant Bradford DO [address] [place] [address] PCP - General 07/16/20 documented as of this encounter Additional Source Comments The information contained in this document represents components of the legal health record. It is not the complete legal health record.[facility]
--- OUTSIDE RECORDS SUMMARY | 2024-02-03 12:57 | XMS_ITS | Encounter Summary ---
Author Organization [facility] Address [phone] [facility] [place] [address] Care Team Providers Care Distillery Supervisor Name Role Phone Shant Bradford DO Primary Care Provider + Encounter Details Date Type Department Care Team (Late st Contact Info) Description 11/19/2021 Orders Only [facility] Department of Orthopaedics [address] [place] [address] Mary Nava, PAAlexaC [address] [place] [address] [email or web address] Post-traumatic osteoarthritis of both knees (Primary Dx) [...] EST) SODIUM 136 136 - 145 mmol/L [facility] POTASSIUM 4.5 3.4 - 5.0 mmol/L [facility] Comment:HEMOLYSIS_INDEX_OF_3 5,INTERPRET_WITH_CAUTION CHLORIDE 102 98 - 107 mmol/L [facility] CO2 24 22 - 31 mmol/L [facility] BUN 15 6 - 23 mg/dL [facility] CREATININE 0.82 0.50 - 1.20 mg/dL [facility] GLUCOSE 89 70 - 115 mg/dL [facility] ALBUMIN 4.7 3.5 - 5.2 g/dL [facility] TOTAL PROTEIN 7.6 6.0 - 8.0 g/dL [facility] CALCIUM 10.1 8.6 - 10.7 mg/dL [facility] ALKALINE PHOSPHATASE 72 40 - 130 U/L [facility] TOTAL BILIRUBIN 0.5 0.0 - 1.0 mg/dL [facility] AST 28 10 - 50 U/L [facility] ALT 23 10 - 50 U/L [facility] GLOBULIN 2.9 2.2 - 4.2 g/dL [facility] EGFR 120 >60 mL/min/1.7 3m2 [facility] Comment:Estimated glomerular filtration rate calculated using the CKD-EPI refit equation. ANION GAP 10 3 - 15 mmol/L [facility] Blood 04/10/2022 12:4 0 PM EST 04/10/2022 1:02 PM EST Mary Nava PA-C LAB BLOOD ORDERABLES [id number] [place] [address] * (ABNORMAL) CBC (04/10/2022 12:40 PM EST) WBC 8.35 4.00 - 10.90 K/uL [facility] RBC 5.09 4.50 - 6.40 M/uL [facility] HGB 15.6 13.5 - 18.0 g/dL [facility] HCT 46.0 40.0 - 54.0 % [facility] PLT 237 150 - 450 K/uL [facility] MCV 90.4 80.0 - 100.0 fL [facility] MCH 30.6 27.0 - 32.0 pg [facility] MCHC 33.9 32.0 - 36.0 g/dL [facility] RDW 11.3(L) 11.5 - 14.5 % [facility] MPV 10.7 8.4 - 12.0 fl [facility] NRBC 0.00 0.00 /100 WBCs [facility] ABSOLUTE NRBC 0.00 0.00 K/uL [facility] Blood 04/10/2022 12:4 0 PM EST 04/10/2022 1:02 PM EST Mary Nava PA-C LAB BLOOD ORDERABLES Performing Organization Address City[facility] [place] [address] * 25-OH vitamin D (04/10/2022 12:40 PM EST) 25 OH VIT D (TOTAL) 22 20 - 80 ng/mL [facility] Blood 04/10/2022 12:4 0 PM EST 04/10/2022 1:02 PM EST Mary Nava PA-C LAB BLOOD ORDERABLES Performing Organization Address [facility] [place] [address] documented in this encounter Visit Diagnoses Diagnosis Post-traumatic osteoarthritis of both knees- Primary documented in this encounter Care Teams Distillery Supervisor Relationship Specialty Start Date End Date Shant Bradford DO [address] [place] [address] PCP - General 07/16/20 documented as of this encounter Additional Source Comments The information contained in this document represents components of the legal health record. It is not the complete legal health record.[facility]
--- OUTSIDE RECORDS SUMMARY | 2024-02-03 12:57 | XMS_ITS | Encounter Summary ---
Author Organization [facility] Address [phone] [facility] [employer] [place] [address] Care Team Providers Care Lumber Stacker Driver Name Role Phone Shant Bradford DO Primary Care Provider + Reason for Visit * Consultation (Routine) - Closed Specialty Diagnoses / Procedures Referred By Charla t Referred To Contact Orthopedic Surgery / Orthopedics Diagnoses f/up after CL discussion international cartilage group to see if anyone has any suggestions. Procedures VIRTUAL ESTABLISHED Shant Bradford DO [address] [place] [address] Delvis Kuhn MD [address] [place] [address] Email: [email or web address] Referral ID Status Reason Start Date Expiration Date Visits Re quested Visits Authorized [id number] Closed 08/25/2021 08/25/2022 6 6 Encounter Details Date Type Department Care Team (Latest Contact Info) Description 08/25/2021 1:45 PM EDT Telemedicine [facility] Orthopedics at [address] [address] Delvis Kuhn MD [address] [place] [address] [email or web address] ON LICENSE OF [facility] Primary localized osteoarthrosis of lower leg, unspecified [...] note were not included. Delvis Kuhn M.D. [facility] Chief, Sports Medicine [address] [place] [address] Director, [facility] [place] [address] F: [phone] Fidelina Joe PA-C David Morrow 09/10/21 1990 [...] ??? Provider is performing virtual visit from [place] and patient is a resident of [address] [place] [address] Delvis Kuhn MD ATTENDING This note was dictated using [employer] software. While it was briefly proofread prior to completion, some grammatical, spelling, and word choice errors due to dictation may still occur. I discussed the benefits and risks of [facility]'s Virtual Visit program today with the [...] Primary documented in this encounter Care Teams Lumber Stacker Driver Relationship Specialty Start Date End Date Shant Bradford DO [address] [place] [address] PCP - General 07/16/20 documented as of this encounter Additional Source Comments The information contained in this document represents components of the legal health record. It is not the complete legal health record.[facility]
--- OUTSIDE RECORDS SUMMARY | 2024-02-03 12:57 | XMS_ITS | Encounter Summary ---
Author Organization [facility] Address [phone] [facility] [place] [address] Care Team Providers Care Laundry Worker Name Role Phone Shant Bradford DO Primary Care Provider + Reason for Visit * Reason Comments Initial Visit B/l knee pain * Consultation (Routine) - Closed Specialty Diagnoses / Procedures Referred By Contac t Referred To Contact Orthopedics Diagnoses Primary localized osteoarthrosis of lower leg, unspecified laterality Fidelina Pino, PASheri [address] [place] [address] Department [place] [address] Email: [email or web address] Adriana Ragsdale MD [address] [place] [address] Referral ID Status Reason Start Date Expiration Date Visits Re quested Visits Authorized [id number] Closed 11/03/2021 11/03/2022 6 6 Encounter Details Date Type Department Care Team (Latest Contact Info) Description 11/17/2021 12:30 PM EDT Office Visit [facility] Department of Orthopaedics [address] [place] [address] Adriana Ragsdale MD [address] [place] [address] [email or web address] Post-traumatic osteoarthritis of both knees (Primary Dx); [...] MD, ASHLEY Director of Research, Arthroplasty Services [facility] PCP: ?Shant Bradford, [address] [facility] [address] Referring Physician: Shant Bradford, [address] [place] [address] David Morrow DATE OF : 1990 DATE [...] rest and activity modification. [facility] believes that TKA is the next step. He has no fevers or chills. 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 The risks, benefits, and alternatives to surgery [...] infection if their surgery is booked at [facility] even if there is no prior diagnosis [...] follow-up postoperatively. This note was dictated using [employer] software. While it was briefly proofread prior [...] knees documented in this encounter Care Teams Laundry Worker Relationship Specialty Start Date End Date Shant Bradford DO [address] [place] [address] PCP - General 07/16/20 documented as of this encounter Additional Source Comments The information contained in this document represents components of the legal health record. It is not the complete legal health record.[facility]
--- OUTSIDE RECORDS SUMMARY | 2024-02-03 12:57 | XMS_ITS | Encounter Summary ---
Author Organization [facility] Address [phone] [place] [address] Care Team Providers Care Atomic Spectroscopist Name Role Phone Shant Bradford DO Primary Care Provider + Reason for Visit * Consultation (Routine) - Closed Specialty Diagnoses / Procedures Referred By Contac t Referred To Contact Orthopedic Surgery / Orthopedics Diagnoses Bilateral knee pain Bilateral knees. pt bringing XR and MRI on CD Procedures NEW ORTHO II Shant Bradford DO [address] [place] [address] Delvis Kuhn MD [address] [place] [address] Email: [email or web address] Referral ID Status Reason Start Date Expiration Date Visits Re quested Visits Authorized [id number] Closed 07/24/2020 07/23/2021 6 6 Encounter Details Date Type Department Care Team (Late Contact Info) Description 02/10/2021 2:00 PM EDT Telemedicine [facility] Orthopedics at [address] [address] Delvis Kuhn MD [address] [place] [address] [email or web address] Articular cartilage disorder of knee, unspecified [...] note were not included. Delvis Kuhn M.D. [facility] Chief, Sports Medicine [address] [facility] Director, [place] [address] F: [phone] Fidelina Joe PA-C David Morrow 02/10/21 1990 [...] ??? Provider is performing virtual visit from [place] and patient is a resident of [address] [place] [address] Delvis Kuhn MD ATTENDING This note was dictated using [employer] software. While it was briefly proofread prior to completion, some grammatical, spelling, and word choice errors due to dictation may still occur. I discussed the benefits and risks of [facility]'s Virtual Visit program today with [...] laterality documented in this encounter Care Teams Atomic Spectroscopist Relationship Specialty Start Date End Date Shant Bradford DO [address] [place] [address] PCP - General 07/16/20 documented as of this encounter Additional Source Comments The information contained in this document represents components of the legal health record. It is not the complete legal health record.[facility]
--- OUTSIDE RECORDS SUMMARY | 2024-02-03 12:57 | XMS_ITS | Encounter Summary ---
Author Organization [facility] Address [phone] [place] [address] Care Team Providers Care Dice Spotter Name Role Phone Shant Bradford DO Primary Care Provider + Reason for Visit * Consultation (Routine) - Closed Specialty Diagnoses / Procedures Referred By Charla t Referred To Contact Orthopedic Surgery / Orthopedics Diagnoses f/up after CL discussion [employer] to see if anyone has any suggestions. Procedures VIRTUAL ESTABLISHED Shant Bradford DO [address] [place] [address] Delvis Kuhn MD [address] [place] [address] Email: [email or web address] Referral ID Status Reason Start Date Expiration Date Visits Re quested Visits Authorized [id number] Closed 08/25/2021 08/25/2022 6 6 Encounter Details Date Type Department Care Team (Latest Contact Info) Description 12/18/2021 8:00 AM EDT Telemedicine - audio only [facility] Orthopedics at [address] [address] Mary Nava, PA-C [address] [place] [address] [email or web address] Post-traumatic osteoarthritis of both knees [...] MD, ASHLEY Director of Research, Arthroplasty Services [facility] David Morrow DATE OF : 1990 DATE OF SERVICE: 12/18/21 PCP: ?Shant Bradford, DO [address] [facility] [address] Referring Physician: Shant Bradford, DO [address] [place] [address] This is a Telephone VIRTUAL VISIT: Patient [...] present today. This note was dictated using [employer] software. While it was briefly proofread prior to completion, some grammatical, spelling, and word choice errors due to dictation may still occur. No questionnaires available. documented in this encounter Plan of Treatment Not on file documented as of this encounter Visit Diagnoses Diagnosis Post-traumatic osteoarthritis of both knees- Primary documented in this encounter Care Teams Dice Spotter Relationship Specialty Start Date End Date Shant Bradford DO [address] [place] [address] PCP - General 07/16/20 documented as of this encounter Additional Source Comments The information contained in this document represents components of the legal health record. It is not the complete legal health record.[facility]
--- OUTSIDE RECORDS SUMMARY | 2024-02-03 12:57 | XMS_ITS | Encounter Summary ---
Author Organization [facility] Address [phone] [facility] [place] [address] Care Team Providers Care Synthetic Staple Extruder Name Role Phone Shant Bradford DO Primary Care Provider + Encounter Details Date Type Department Care Team ([facility] Contact Info) Description 09/26/[address] [address] Delvis Kuhn MD [address] [place] [address] [email or web address] Social History Tobacco Use Types Packs/Day Years Used Date Smoking Tobacco: Never Smokeless Tobacco: Never Sex and Gender Information Value Date Recorded Sex Assigned at Male 07/16/2020 11:01 AM EST Gender Identity Male 07/16/2020 11:01 AM EST Sexual Orientation Straight 07/16/2020 11 :01 AM EST documented as of this encounter Progress Notes * Yarely Bran - 09/26/2020 10:48 AM EDT [facility] called, asking for PA for MRI Dr. Hein ordered for pt. Please call with auth # or advise otherwise. , for Juany/Balwinder documented in this encounter Plan of Treatment Not on file documented as of this encounter Visit Diagnoses Not on filedocumented in this encounter Care Teams Synthetic Staple Extruder Relationship Specialty Start Date End Date Shant Bradford DO [address] [place] [address] PCP - General 07/16/20 documented as of this encounter Additional Source Comments The information contained in this document represents components of the legal health record. It is not the complete legal health record.[facility]
--- OUTSIDE RECORDS SUMMARY | 2024-02-03 12:57 | XMS_ITS | Encounter Summary ---
Author Organization [facility] Address [phone] [place] [address] Care Team Providers Care Aquatics Specialist Name Role Phone Shant Bradford DO Primary Care Provider + Encounter Details Date Type Department Care Team (Late st Contact Info) Description 07/19/2020 Ancillary Orders [facility] Women[facility] Radiology [address] [place] [phone] Unknown, Unknown, Social History Tobacco Use Types [...] on filedocumented in this encounter Care Teams Aquatics Specialist Relationship Specialty Start Date End Date Shant Bradford DO [address] [place] [address] PCP - General 07/16/20 documented as of this encounter Additional Source Comments The information contained in this document represents components of the legal health record. It is not the complete legal health record.[facility]
--- OUTSIDE RECORDS SUMMARY | 2024-02-03 12:57 | XMS_ITS | Encounter Summary ---
Author Organization [facility] Address [phone] Replaced by [facility] [place] [address] Care Team Providers Care Records Technician Name Role Phone Shant Bradford DO Primary Care Provider + Encounter Details Date Type Department Care Team ([facility] st Contact Info) Description 04/29/2022 Orders Only [facility] Orthopedics - [place] [address] [address] Adriana Ragsdale MD [address] [place] [address] [email or web address] Social History Tobacco Use Types Packs/Day Years [...] on filedocumented in this encounter Care Teams Records Technician Relationship Specialty Start Date End Date Shant Bradford DO [address] [facility] [address] PCP - General 07/16/20 documented as of this encounter Additional Source Comments The information contained in this document represents components of the legal health record. It is not the complete legal health record.[facility]
--- OUTSIDE RECORDS SUMMARY | 2024-02-03 12:57 | XMS_ITS | Encounter Summary ---
Author Organization [facility] Address [phone] [facility] [employer] [address] Care Team Providers Care Gear Tooth Lapping Machine Operator Name Role Phone Shant Bradford DO Primary Care Provider + Encounter Details Date Type Department Care Team (Latest Contact Info) Description 07/24/2020 1:54 PM EDT - 07/24/2020 11:59 PM EDT Hospital Encounter [address] [address] Delvis Kuhn MD [address] [place] [phone] [email or web address] Discharge Disposition: Home or [...] laterality documented in this encounter Care Teams Gear Tooth Lapping Machine Operator Relationship Specialty Start Date End Date Shant Bradford DO [address] [place] [address] PCP - General 07/16/20 documented as of this encounter Additional Source Comments The information contained in this document represents components of the legal health record. It is not the complete legal health record.[facility]
--- OUTSIDE RECORDS SUMMARY | 2024-02-03 12:57 | XMS_ITS | Encounter Summary ---
Author Organization [facility] Address [phone] [facility] [place] [address] Care Team Providers Care Resistor Tester Name Role Phone Shant Bradford DO Primary Care Provider + Encounter Details Date Type Department Care Team (Latest Contact Info) Description 07/24/2020 1:54 PM EDT - 07/24/2020 11:59 PM EDT Hospital Encounter [address] [address] Delvis Kuhn MD [address] [place] [address] [email or web address] Discharge Disposition: Home or [...] laterality documented in this encounter Care Teams Resistor Tester Relationship Specialty Start Date End Date Shant Bradford DO [address] [place] [id number] PCP - General 07/16/20 documented as of this encounter Additional Source Comments The information contained in this document represents components of the legal health record. It is not the complete legal health record.[facility]
--- OUTSIDE RECORDS SUMMARY | 2024-02-03 12:57 | XMS_ITS | Encounter Summary ---
Author Organization [facility] Address [phone] [facility] [place] [address] Care Team Providers Care Honey Processor Name Role Phone Shant Bradford DO Primary Care Provider + Encounter Details Date Type Department Care Team (Latest Contact Info) Description 04/10/2022 1:00 PM EST Office Visit [facility] [address] [place] [address] Adriana Ragsdale MD [address] [place] [address] [email or web address] Preop testing (Primary Dx); Post-traumatic osteoarthritis of [...] D (TOTAL) 22 20 - 80 ng/mL [facility] Blood 04/10/2022 12:4 0 PM EST 04/10/2022 1:02 PM EST Mary Nava PA-C LAB BLOOD ORDERABLES [facility] [address] [place] [address] * (ABNORMAL) CBC (04/10/2022 12:40 PM EST) WBC 8.35 4.00 - 10.90 K/uL [facility] RBC 5.09 4.50 - 6.40 M/uL [facility] HGB 15.6 13.5 - 18.0 g/dL [facility] HCT 46.0 40.0 - 54.0 % [facility] PLT 237 150 - 450 K/uL [facility] MCV 90.4 80.0 - 100.0 fL [facility] MCH 30.6 27.0 - 32.0 pg [facility] MCHC 33.9 32.0 - 36.0 g/dL [facility] RDW 11.3(L) 11.5 - 14.5 % [facility] MPV 10.7 8.4 - 12.0 fl [facility] NRBC 0.00 0.00 /100 WBCs [facility] ABSOLUTE NRBC 0.00 0.00 K/uL [facility] Blood 04/10/2022 12:4 0 PM EST 04/10/2022 1:02 PM EST Mary Nava PA-C LAB BLOOD ORDERABLES Performing Organization Address City/State/[facility] Co de Phone Number [facility] [address] [place] [address] * Comprehensive metabolic panel (04/10/2022 12:40 PM EST) SODIUM 136 136 - 145 mmol/L [facility] POTASSIUM 4.5 3.4 - 5.0 mmol/L [facility] Comment:HEMOLYSIS_INDEX_OF_3 5,INTERPRET_WITH_CAUTION CHLORIDE 102 98 - 107 mmol/L [facility] CO2 24 22 - 31 mmol/L [facility] BUN 15 6 - 23 mg/dL [facility] CREATININE 0.82 0.50 - 1.20 mg/dL [facility] GLUCOSE 89 70 - 115 mg/dL [facility] ALBUMIN 4.7 3.5 - 5.2 g/dL [facility] TOTAL PROTEIN 7.6 6.0 - 8.0 g/dL [facility] CALCIUM 10.1 8.6 - 10.7 mg/dL [facility] ALKALINE PHOSPHATASE 72 40 - 130 U/L [facility] TOTAL BILIRUBIN 0.5 0.0 - 1.0 mg/dL [facility] AST 28 10 - 50 U/L [facility] ALT 23 10 - 50 U/L [facility] GLOBULIN 2.9 2.2 - 4.2 g/dL [facility] EGFR 120 >60 mL/min/1.7 3m2 [facility] Comment:Estimated glomerular filtration rate calculated using the CKD-EPI refit equation. ANION GAP 10 3 - 15 mmol/L [facility] Blood 04/10/2022 12:4 0 PM EST 04/10/2022 1:02 PM EST Mary Nava PA-C LAB BLOOD ORDERABLES [facility] [address] [place] [address] * MRSA/MSSA pre-op PCR (04/10/2022 12:30 PM EST) MRSA PCR SCREEN MRSA NEGATIVE MRSA NEGATIVE [facility] Staph Aureus PCR Screen SA NEGATIVE SA NEGATIVE [facility] Other (Nasal) 04/10/2022 12: 30 PM EST 04/10/2022 1:01 PM EST Ivelisse Aguila ELECTRICIAN MACHINE SHOP NON CULTURE MICROBI OLOGY [facility] [address] [place] [address] documented in this encounter Visit Diagnoses Diagnosis Preop testing- Primary Unspecified pre-operative examination Post-traumatic osteoarthritis of both knees documented in this encounter Care Teams Honey Processor Relationship Specialty Start Date End Date Shant Bradford DO [address] [place] [address] PCP - General 07/16/20 documented as of this encounter Additional Source Comments The information contained in this document represents components of the legal health record. It is not the complete legal health record.[facility]
--- OUTSIDE RECORDS SUMMARY | 2024-02-03 12:57 | XMS_ITS | Encounter Summary ---
Author Organization [facility] Address [phone] [place] [address] [place] [address] Care Team Providers Care Spark Plug Tester Name Role Phone Shant Bradford DO Primary Care Provider + Encounter Details Date Type Department Care Team ([facility] Contact Info) Description 03/05/2022 Procedure Pass [facility] Radiology [address] [place] [address] Social History Tobacco Use Types Packs/Day Years [...] on filedocumented in this encounter Care Teams Spark Plug Tester Relationship Specialty Start Date End Date Shant Bradford DO [address] [place] [address] PCP - General 07/16/20 documented as of this encounter Additional Source Comments The information contained in this document represents components of the legal health record. It is not the complete legal health record.[facility]
--- OUTSIDE RECORDS SUMMARY | 2024-02-03 12:57 | XMS_ITS | Encounter Summary ---
Author Organization [facility] Address [phone] [place] [address] Care Team Providers Care Manager Long Term Care Name Role Phone Shant Bradford DO Primary Care Provider + Reason for Visit * Auth/Cert Specialty Diagnoses / Procedures Referred By Contac t Referred To Contact Diagnoses Primary osteoarthritis of left knee Left Total Knee Replacement Lelo Lateral Release Procedures IA TOTAL KNEE ARTHROPLASTY ROBOTIC ARTHROPLASTY TOTAL KNEE WITH LATERL RELEASE Referral ID Status Reason Start Date Expiration Date Visits Re quested Visits Authorized [id number] 1 1 Encounter Details Date Type Department Care Team (Late st Contact Info) Description 05/05/2022 1:45 PM EST - 05/05/2022 4:35 PM EST Surgery BWF Periop 6th floor [address] [place] [address] Adriana Ragsdale MD [address] [place] [address] [email or web address] ROBOTIC ARTHROPLASTY TOTAL KNEE WITH LATERL RELEASE [...] Surgery 1 Adriana Ragsdale MD Primary Orthopedic Hank rosalba 1 Special Needs : Miesha Triathlon knee [...] y.o. male ( = 1990) Home Address: [address] [place] [address], [facility] [address] [facility] [address] (home) Preferred Language: Tunisian Written Language: Tunisian Needs Hearing Care Practitioner: No Type of Advance Care Directive(s): None [...] Rose CRNA - Kenny Sheikh MD - FellowChenAdriana MD - Primary Procedures this admission None Non (OR) Procedures: Pending Results None Hospital Course David Morrow is a 32 y.o. male who has a history of left knee osteoarthritis, which has failedconservative medical management, therefore was admitted to the [facility] and underwent an elective left total knee replacement on 05/05/2022 with Adriana Ragsdale MD. David Morrow is a 32 y.o. male underwent the above procedure by Adriana Ragsdale MD at [facility] on 05/05/2022. The patient tolerated the procedure [...] Medications [id number] [place], [place] - [address] [facility] [address] ?? acetaminophen 325 mg tablet ?? aspirin 81 MG EC tablet ?? dexAMETHasone 2 MG tablet ?? docusate sodium 100 MG capsule ?? naproxen 500 MG tablet ?? omeprazole 20 MG capsule ?? ondansetron 4 MG tablet ?? oxyCODONE 5 MG immediate release tablet ?? senna 8.6 mg tablet Hospital Care Team Service: Orthopedics Inpatient Attending: Adriana Ragsdale MD Attending [facility] phone: [facility] Primary Care Physician: Shant Bradford DO [phone] Transitional Plan Scheduled appointments: Scheduled Appointments (maximum listed = 10) Provider Department Dept Phone Center Visit Type 05/18/2022 3:15 PM Adriana Ragsdale MD [facility] Department of Orthopaedics [phone] [facility] POST OP VISIT 06/15/2022 2:00 PM Adriana Ragsdale MD [facility] Department of Orthopaedics [phone] [facility] Signed Discharge Orders (From admission, onward) Ordered 05/06/22752 Activity as tolerated 05/06/22752 Other, please specify Comments: See specific patient instructions. 05/06/22752 Discharge diet Question: Diet type Answer: Regular 05/06/22752 For any questions call Treatment Team: Surgeon: Adriana Ragsdale MD [phone] Comments: For any questions call Treatment Team: Surgeon: Adriana Ragsdale MD [phone] 05/06/22752 Wound care Comments: Remove dressing 7 [...] instructions and important events and results David Morrow You underwent a left total [...] please contact your surgeon's office 's office [phone]. - Any unused opioid medications (e.g., oxycodone, dilaudid, or tramadol (Ultram)) should be returned to the pharmacy or brought to a safe disposal location (log into https://www.[place].gov/backday#collection-venue attendant to find a location near you). - [...] schedule or confirm this appointment. 's office [phone]. For urgent issues during Wednesday through Wednesday call your surgeon's office directly. Evenings, weekends, and holidays please call [phone] and ask to speak with the Orthopedic [id number]-lbcr. You should also schedule an appointment with your primary care physician (PCP) in 2-4 weeks or as needed. Exam Temperature: 36.5 ??C (97.7 ??F) (05/06/22 040) Heart Rate: 73 (05/06/22 0400) BP: 121/78 (05/06/22 0400) Respiratory Rate: 16 (05/06/22 0000) SpO2: 100 % (05/06/22399) O2 Device: None (Room air) (05/06/22399) O2 Flow Rate (L/min): 6 Weight: 90.7 kg (200 lb) (05/05/22 1237) Height: 175.3 cm (5' 9) (05/05/22 1237) BMI (Calculated):29.52 (05/05/22 123) Discharge Exam Significant Discharge Exam Findings: General: [...] prescribing the opioid, I utilized the [place] (Mirimus Prescription Awareness Tool) to review the patient's previous prescriptions. The script was written with the intention to wean. Patient was instructed on how to appropriately wean off narcotics and disposal of unused/unwanted pills. Areli Walters, MSN, SLASH TRIMMER-C [facility] Orthopedic Spine Surgery Service P documented in [...] please contact your surgeon's office 's office [phone]. Any unused opioid medications (e.g., oxycodone, dilaudid, or tramadol (Ultram)) should be returned to the pharmacy or brought to a safe disposal location (log into https://www.[place].gov/takebackday#collection-venue attendant to find a location near you). You [...] schedule or confirm this appointment. 's office [phone]. For urgent issues during Wednesday through Wednesday call your surgeon's office directly. Evenings, weekends, and holidays please call [phone] and ask to speak with the Orthopedic gkvbereb-ul-udgy. You should also schedule an appointment with [...] 75 mg by mouth daily. 1.5 tablets aspirin 81 MG EC tablet Take 1 tablet (81 mg total) by mouth 2 (two) times a day for 28 days. 56 tablet 05/06/2022 dexAMETHasone (DECADRON) 2 MG tablet Take 5 [...] consult at this time. Mary Blake OT [id number] * Yasmeen Genao, PT - 05/06/2022 7:10 [...] Pt seen for follow up visit in [facility]. Pt pleasant and easily agreeable to session. [...] recuperating at his mother's house [facility] and she is and OT whom will be supportive to pt's needs. Pt advised to follow FORCE del, and to follow up OPPT when appropriate as VNA unable to be obtained for home visits per case management. There are no mobility or activity tolerance barriers to a safe home d/c plan. Pt left safely supine with all needs within reach. Discussed with pt/RN/SLASH TRIMMER. Recommendations: Discharge, Activity, Safety, Other Consults PT [...] Signature of Providing Clinician: Yasmeen Genao PT [id number] Date:PT Received On: 05/06/22 Start Time: Start [...] and/or competing care priorities. Yasmeen Genao PT [id number] DC License #[id number] Beeper #[id number] * Dhara Latham NP - 05/05/2022 7:02 [...] medical management, therefore was admitted to the [facility] [facility] [employer] and underwent an elective left total knee replacement on 05/05/2022 with Adriana Ragsdale MD. Day of Surgery patient doing well and pain controlled. Post-op exam unremarkable and left knee dressing c/d/i. Plan: MSK: left knee with mepilex. Dressing to be removed on POD#7. PT/OT consulted and following. WBAT OOB today Pain management: ES Tylenol 975mg Q8 hours standing. OxycodonePO 5-10 mg [id number] prn pain Decadron 10mg x2 days on [...] and QHS with Lispro sliding scale. IVF [id number] D/C planning: Likely home with PT only. Discharge when medically cleared. Code Status: Full Code Treatment plan and medications (including schedule II) were reviewed with attending physician. Dhara Latham NP Orthopedic Nurse Practitioner [facility] Pager # [phone] * Lizy Warner - 05/05/2022 1:45 PM EST Case Management - Progress Note Case Management Pre-Screening Assessment Name: David Morrow : 1990 Legal Sex: Male Gender Identity: Male PATIENT INFORMATION Address: [address] [place] [address] [address]N: [facility] [id number] Pref. Lang.: Tunisian [facility] Y/N: Not Primary Quaker: Atheist Ethnicity: Ecuadorean Special Needs: None Race: White Marital Status: Single EMERGENCY CONTACT INFORMATION Extended Emergency Contact Information Primary Emergency Contact: Susan Morrow Address: [address] [place] [address] [place] [address] [facility] Mobile Relation: Mother PROVIDER INFORMATION Admitting Provider: Adriana Ragsdale Md Attending Provider: Adriana Ragsdale Md PCP: Shant Bradford DO PCP Referring Provider: Adriana Ragsdale Referring Provider PRIMARY INSURANCE Plan: [employer] POS SECONDARY INSURANCE Plan: Subscriber ID: Date of surgery: 05/05/2022 Surgery: L KNEE Surgeon: VICTORIA Telephone interview conducted on 05/04/2022 to review concerns, supports, level of care, and services for time of discharge. Services will be established as indicated after postsurgical PT /OT evaluations are completed. * Address where you will recuperate: [facility] [place] Best contact number for additional questions? [phone] Have you had a discussion with your [...] do not have an outpatient pharmacy at [facility]. What pharmacy do you use[facility], [...] Discharge planning, [address] ??482.43 (2019). * iLzy Warner - 05/05/2022 11:13 AM EST Case Management - Progress Note CTS Lizy Warner has notified patient that no physical therapy services are available in the [facility]. The multiple companies they were sent to were either at capacity or does not accept his [facility] insurance. Lizy Warner documented in this encounter H&P Notes * Kenny Chiu MD - 05/05/2022 12:43 PM EST [facility] ORTHOPEDICS ARTHROPLASTY SERVICE Date of Surgery: [...] HISTORY: I have reviewed and updated the [facility] problem list and past medical history. [...] ALLERGIES: I have reviewed and updated the [facility] medication and allergy list. Allergies Allergen [...] 15 mg 15 mg Oral Once ??? cmwgrncgkng-lroslyroqng-ibeekjcpg-ketorolac 2.46-0.005- 0.0008-0.3mg/mL PERIARTICULAR syringe 100 mL Intra-articular [...] in this encounter Procedure Notes * Adriana Ragsdael MD - 05/05/2022 2:15 PM EST Full [...] No resident was available to help Physician Comparator Operator: Mary Nava PA-C Advertising Operations Coordinator: Kennedy Fay MD BUSINESS OBJECTS: Nesha Chaudhry CRNA; Juana Dubon CRNA; Iva Phillip CRNA Anesthesia Type: Spinal ASA Code: II Estimated Blood Loss: 150cc TOURNIQUET: Not applied COMPLICATIONS: None CONDITION: Stable to PACU IMPLANTS USED: [place] Triathalon, 4 CR femur, 5 tibia, 9CS [...] knee was opened up with a laminar practice consultant. Posterior osteophytes were removed as well as [...] medical management, therefore [facility] and underwent an elective left total [...] with bedroom/bathroom (Pt will be recovering in [facility] house with Mother, cottage style house) Stairs to Enter Home: 0 Railing to Enter Home: Stairs Inside Home: 1 FOS to second floor but bed and bath on first level Railing Inside Home: Bathroom Accessibility: Accessible Bathroom Shower/Tub: Tub/shower unit Prior Level of Function Hearing Aid: Baseline Vision: Wears glasses all the time Which is your dominant hand?: Level of Lucien: Independent with ADL, IADL, Mobility 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 Pt was seen by PT post-op day 0 in PACU. Pt is recovering in a family home [facility] which has no HALEY and pt is [...] Signature of Providing Clinician: Isis Sarmiento, [place] [id number] Date:05/05/22 Start Time: 1909 End Time: 1937 [...] above procedure by Adriana Ragsdale MD at [facility] on 05/05/2022. The patient tolerated the procedure [...] THROUGHPUT TECH Routine 05/05/2022 2:05 PM EST [place] TOTAL KNEE ARTHROPLASTY 05/05/2022 1:08 PM EST [...] EST) WBC 18.86(H) 4.00 - 10.90 K/uL [facility] RBC 4.68 4.50 - 6.40 M/uL [facility] HGB 14.5 13.5 - 18.0 g/dL [facility] HCT 42.0 40.0 - 54.0 % [facility] PLT 227 150 - 450 K/uL [facility] MCV 89.7 80.0 - 100.0 fL [facility] MCH 31.0 27.0 - 32.0 pg [facility] MCHC 34.5 32.0 - 36.0 g/dL [facility] RDW 11.6 11.5 - 14.5 % [facility] MPV 10.8 8.4 - 12.0 fl [facility] NRBC 0.00 0.00 /100 WBCs [facility] ABSOLUTE NRBC 0.00 0.00 K/uL [facility] Blood 05/06/2022 6:40 AM EST 05/06/2022 7:20 AM EST Kenny Chiu MD LAB BLOOD O RDERABLES [facility] [address] [place] [address] * (ABNORMAL) Basic metabolic panel (05/06/2022 6:40 AM EST) SODIUM 136 136 - 145 mmol/L [facility] CHLORIDE 100 98 - 107 mmol/L [facility] POTASSIUM 4.2 3.4 - 5.0 mmol/L [facility] Comment:HEMOLYSIS_INDEX_OF_9 3,INTERPRET_WITH_CAUTION CO2 26 22 - 31 mmol/L [facility] BUN 11 6 - 23 mg/dL [facility] CREATININE 1.13 0.50 - 1.20 mg/dL [facility] GLUCOSE 169(H) 70 - 115 mg/dL [facility] CALCIUM 9.4 8.6 - 10.7 mg/dL [facility] EGFR 89 >60 mL/min/1.7 3m2 [facility] Comment:Estimated glomerular filtration rate calculated using the CKD-EPI refit equation. ANION GAP 10 3 - 15 mmol/L [facility] Blood 05/06/2022 6:40 AM EST 05/06/2022 7:20 AM EST Kenny Chiu MD LAB BLOOD O RDERABLES [facility] [address] [place] [address] * XR KNEE 1-2 VIEWS (LEFT) (05/05/2022 [...] PCR SARS-CoV-2 not detected SARS-CoV-2 not detected [facility] Source AN SWAB [facility] 05/05/2022 2:05 PM EST 05/05/2022 2:34 PM EST Adriana Ragsdale MD BODY FLUIDS AND STOOLS ORDERABLES [address] [address] * COVID-19 Antigen (Flowflex), Nasal Swab (05/05/2022 12:46 PM EST) SARS-CoV-2 (COVID-19) antigen NEGATIVE - Internal QCs acceptable NEGATIVE - Internal QCs acceptable [facility] Adriana Ragsdale MD POINT OF CARE T EST ORDERABLES Performing Organization Address City/[facility] Co de Phone Number [address] [address] documented in this encounter Visit Diagnoses Diagnosis [...] Given 05/05/2022 11:57 PM EST 10 mg vsyayfcuwbj-bcwfpatdafv-tmv nidine-ketorolac 2.46-0.005- 0.0008-0.3mg/mL PERIARTICULAR syringe 100 mL, [...] (New Bag - Provider: Emily Zambrano RN) 06 (New Bag - Provider: Emily Zambrano RN) [...] (Given - Provid er: Emily Zambrano RN) tfcresrmfie-tycnzyasfob-hshb idine-ketorolac 2.46-0.005- 0.0008-0.3mg/mL PERIARTICULAR syringe (COMPLETED) 100 [...] Nesha Chaudhry CRNA - Comment: Switch to gravity)170 (Restarted - Provider: Nesha Chaudhry CRNA)1728 (Stopped [...] at 1627, May be co-administered with ketorolac. 1809 (Given - Provider: Irma Valadez, RN) Linked Groups Order Group 1: acetaminophen [...] PO. documented in this encounter Care Teams Manager Long Term Care Relationship Specialty Start Date End Date Shant Bradford DO [address] [place] [address] PCP - General 07/16/20 documented as of this encounter Additional Source Comments The information contained in this document represents components of the legal health record. It is not the complete legal health record.[facility]
--- OUTSIDE RECORDS SUMMARY | 2024-02-03 12:57 | XMS_ITS | Encounter Summary ---
Author Organization [facility] Address [phone] [facility] [place] [employer] [place] [address] Care Team Providers Care Slot Ambassador Name Role Phone Shant Bradford DO Primary Care Provider + Encounter Details Date Type Department Care Team (Late st Contact Info) Description 10/14/2020 Telephone [facility] Orthopedics [facility] [address] [place] [address] Delvis Kuhn MD [address] [place] [address] [email or web address] Social History Tobacco Use Types [...] AIM said they???re not responsible either. Called [facility] - , spoke to Mela and gave info- ICD M23.92, CPT 84611 - connected toa nurse reviewer - Auth # [id number] - 08/20 to 10/18 - but location was O so [facility], an alternative, was approved. Spoke to patient to give him the information but claims [facility] should be in-network so called [facility] again and spoke to Bassam who gave me the Auth # [id number] under BS for his R knee MRI ([id number]), stating he can go anywhere in [place] and it will be approved. documented in this encounter Plan of Treatment Not on file documented as of this encounter Visit Diagnoses Not on filedocumented in this encounter Care Teams Slot Ambassador Relationship Specialty Start Date End Date Shant Bradford DO [address] [place] [address] PCP - General 07/16/20 documented as of this encounter Additional Source Comments The information contained in this document represents components of the legal health record. It is not the complete legal health record.[facility]
--- OUTSIDE RECORDS SUMMARY | 2024-02-03 12:57 | XMS_ITS | Encounter Summary ---
Author Organization [facility] Address [phone] [facility] [place] [address] Care Team Providers Care Dental Biller Name Role Phone Shant Bradford DO Primary Care Provider + Reason for Referral * Consultation (Routine) - Closed Specialty Diagnoses / Procedures Referred By Contac t Referred To Contact Orthopedics Diagnoses Primary localized osteoarthrosis of lower leg, unspecified laterality Fidelina Pino PA-C [address] [place] [address] Department of Orthopedic Surgery [place], [place] Email: [email or web address] Adriana Ragsdale MD [address] [place], [place] Referral ID Status Reason Start Date Expiration Date Visits Re quested Visits Authorized [id number] Closed 11/03/2021 11/03/2022 6 6 Encounter Details Date Type Department Care Team (Late st Contact Info) Description 09/29/2021 Orders Only [facility] Orthopedics at [address] [address] Fidelina Pino PA-C [address] [place] [address] Department [place] [address] [email or web address] Primary localized osteoarthrosis of lower leg, unspecified [...] Diagnoses Orde r Schedule Ambulatory referral to [facility] Orthopedics Outpatient Referral Routine Primary localized osteoarthrosis of lower leg, unspecified laterality Ordered: 09/29/2021 documented as of this encounter Visit Diagnoses Diagnosis Primary localized osteoarthrosis of lower leg, unspecified laterality- Primary documented in this encounter Care Teams Dental Biller Relationship Specialty Start Date End Date Shant Bradford DO [address] [place] [address] PCP - General 07/16/20 documented as of this encounter Additional Source Comments The information contained in this document represents components of the legal health record. It is not the complete legal health record.[facility]
--- OUTSIDE RECORDS SUMMARY | 2024-02-03 12:57 | XMS_ITS | Encounter Summary ---
Author Organization [facility] Address [phone] [place] [address] Care Team Providers Care Deputy Chief Counsel Name Role Phone Shant Bradford DO Primary Care Provider + Reason for Referral * MRI/CAT Scan - Closed Specialty Diagnoses / Procedures Referred By Contac t Referred To Contact Radiology Diagnoses Chronic pain of left knee Procedures CT Knee (Left) CHG CT SCAN,LOWER EXTREMITY,W/O CONTRAST Adriana Ragsdale MD [address] [place] [address] [address] Referral ID Status Reason Start Date Expiration Date Visits Re quested Visits Authorized [id number] Closed 03/25/2022 05/25/2022 2 2 Reason for Visit * MRI/CAT Scan - Closed Specialty Diagnoses / Procedures Referred By Contac t Referred To Contact Radiology Diagnoses Chronic pain of left knee Procedures CT Knee (Left) CHG CT SCAN,LOWER EXTREMITY,W/O CONTRAST Adriana Ragsdale MD [address] [place] [address] [address] Referral ID Status Reason Start Date Expiration Date Visits Re quested Visits Authorized [id number] Closed 03/25/2022 05/25/2022 2 2 Encounter Details Date Type Department Care Team (Latest Contact Info) Description 04/10/2022 12:08 PM EST - 04/10/2022 12:34 PM EST Hospital Encounter [facility] [address] [place] [address] Adriana Ragsdale MD [address] [place] [address] [email or web address] Discharge Disposition: Home or Self Care [...] left knee. Adriana Ragsdale MD IMG CT EXTREMIT Y documented in this encounter Visit Diagnoses Diagnosis Chronic pain of left knee documented in this encounter Care Teams Deputy Chief Counsel Relationship Specialty Start Date End Date Shant Bradford DO [address] [place] [address] PCP - General 07/16/20 documented as of this encounter Additional Source Comments The information contained in this document represents components of the legal health record. It is not the complete legal health record.[facility]
--- OUTSIDE RECORDS SUMMARY | 2024-02-03 12:57 | XMS_ITS | Encounter Summary ---
Author Organization [facility] Address [phone] [place] [address] Care Team Providers Care Vamp Throater Name Role Phone Shant [place] DO Primary Care Provider + Reason for Referral * Physical Therapy (Within 3 days (urgent)) - Closed Specialty Diagnoses / Procedures Referred By Contac t Referred To Contact Physical Therapy Areli Walters, DOUBLE CUT SAWYER [address] [place] [address] Email: [email or web address] Referral ID Status Reason Start Date Expiration Date Visits Re quested Visits Authorized [id number] Closed 05/06/2022 05/07/2023 1 1 Reason for Visit * Auth/Cert Specialty Diagnoses / Procedures Referred By Contac t Referred To Contact Diagnoses Primary osteoarthritis of left knee Left Total Knee Replacement Lelo Lateral Release Procedures CA TOTAL KNEE ARTHROPLASTY ROBOTIC ARTHROPLASTY TOTAL KNEE WITH LATERL RELEASE Referral ID Status Reason Start Date Expiration Date Visits Re quested Visits Authorized [id number] 1 1 Encounter Details Date Type Department Care Team (Latest Contact Info) Description 05/05/2022 12:13 PM EST - 05/06/2022 9:13 AM EST Hospital Encounter BW Periop 6th floor [address] [place] [address] Adriana Ragsdale MD [address] [place] [address] [email or web address] Discharge Disposition: Home or Self [...] y.o. male ( = 1990) Home Address: [address] [place] [address] (home) Preferred Language: Guatemalan Written Language: Guatemalan Needs Vat Overhauler: No Type of Advance Care Directive(s): None [...] Anesthesia AttendingParrott, Juana De Guzman, KASSANDRA - Nesha Zimmerman CRNA - Iva Rose CRNA - Kenny Sheikh MD - FellowChen, Adriana Cee MD - Primary Procedures this admission None Non (OR) Procedures: Pending Results None Hospital Course David Morrow is a 32 y.o. male who has a history of left knee osteoarthritis, which has failedconservative medical management, therefore [facility] and underwent an elective left total knee replacement on 05/05/2022 with Adriana Ragsdale MD. David Morrow is a 32 y.o. male underwent the above procedure by Adriana Ragsdale MD at [facility] on 05/05/2022. The patient tolerated the procedure [...] was prescribed Zofran for nausea. : No solarse was placed. Patient was voiding independently at [...] Your Medications These medications were sent to [facility]/pharmacy #[id number] - [place], [place] - [address] [facility] [address] [facility] [address] ?? acetaminophen 325 mg tablet ?? aspirin 81 MG EC tablet ?? dexAMETHasone 2 MG tablet ?? docusate sodium 100 MG capsule ?? naproxen 500 MG tablet ?? omeprazole 20 MG capsule ?? ondansetron 4 MG tablet ?? oxyCODONE 5 MG immediate release tablet ?? senna 8.6 mg tablet Hospital Care Team Service: Orthopedics Inpatient Attending: Adriana Ragsdale MD Attending [facility] phone: Discharge Unit: [place] [address] Primary Care Physician: Shant [place] DO [phone] Transitional Plan Scheduled appointments: Scheduled Appointments (maximum listed = 10) Provider Department Dept Phone Center Visit Type 05/18/2022 3:15 PM Adriana Ragsdale MD [facility] [phone] [facility] 06/15/2022 2:00 PM Adriana Ragsdale MD [facility] Department of Orthopaedics [phone] [facility] POST OP VISIT Signed Discharge Orders (From admission, onward) Ordered 05/06/22 075 Activity as tolerated 05/06/22752 Other, please specify Comments: See specific patient instructions. 05/06/22 075 Discharge diet Question: Diet type Answer: Regular 05/06/22752 For any questions call Treatment Team: Surgeon: Adriana Ragsdale MD [phone] Comments: For any questions call Treatment Team: Surgeon: Adriana Ragsdale MD [phone] 05/06/22 075 Wound care Comments: Remove dressing [...] please contact your surgeon's office 's office [phone]. - Any unused opioid medications (e.g., oxycodone, dilaudid, or tramadol (Ultram)) should be returned to the pharmacy or brought to a safe disposal location (log into https://www.[employer].gov/#collection-fiscal services director to find a location near you). - [...] schedule or confirm this appointment. 's office [phone]. For urgent issues during Wednesday through Wednesday call your surgeon's office directly. Evenings, weekends, and holidays please call [phone] and ask to speak with the Orthopedic [id number]. You should also schedule an appointment with [...] prescribing the opioid, I utilized the [employer] ([employer] Prescription Awareness Tool) to review the patient's previous prescriptions. The script was written with the intention to wean. Patient was instructed on how to appropriately wean off narcotics and disposal of unused/unwanted pills. Areli Walters, MSN, MANUFACTURER'S SERVICE REPRESENTATIVE-C [facility] Orthopedic Spine Surgery Service P documented [...] please contact your surgeon's office 's office [phone]. Any unused opioid medications (e.g., oxycodone, dilaudid, or tramadol (Ultram)) should be returned to the pharmacy or brought to a safe disposal location (log into https://www.robert.gov/takebackday#collection-fiscal services director to find a location near you). You [...] schedule or confirm this appointment. 's office [phone]. For urgent issues during Wednesday through Wednesday call your surgeon's office directly. Evenings, weekends, and holidays please call [phone] and ask to speak with the Orthopedic [id number]. You should also schedule an appointment with [...] consult at this time. Mary Blake OT [id number] documented in this encounter H&P Notes * Kenny Chiu MD - 05/05/2022 12:43 PM EST [facility] ORTHOPEDICS ARTHROPLASTY SERVICE Date of Surgery: [...] HISTORY: I have reviewed and updated the [facility] problem list and past medical history. [...] ALLERGIES: I have reviewed and updated the [facility] medication and allergy list. Allergies Allergen [...] 15 mg 15 mg Oral Once ??? pcftuinuvci-driiklydchl-opcjycptd-ketorolac 2.46-0.005- 0.0008-0.3mg/mL PERIARTICULAR syringe 100 mL Intra-articular [...] consent obtained. Surgical site markedas indicated. Kenny hCiu MD documented in this encounter Procedure Notes [...] No resident was available to help Physician Coat Cutter: Mary Nava PA-C Improvement Rn: Kennedy Fay MD DRAGLINE MECHANIC: Nesha Chaudhry CRNA; Juana Dubon CRNA; Iva Phillip CRNA Anesthesia Type: Spinal ASA Code: II Estimated Blood Loss: 150cc TOURNIQUET: Not applied COMPLICATIONS: None CONDITION: Stable to PACU IMPLANTS USED: Oden Triathalon, 4 CR femur, 5 tibia, 9CS [...] knee was opened up with a laminar compress machine operator. 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 Pt was seen by PT post-op day 0 in PACU. Pt is recovering in a family home in [facility] which has no [facility] and pt is able to live on [...] Signature of Providing Clinician: Isis Sarmiento, [place] [id number] Date:05/05/22 Start Time: 1909 End Time: 1937 [...] Miscellaneous Notes * Plan of Care - Trefethen, Santiago, RN - 05/06/2022 9:11 AM EST Problem: [...] above procedure by Adirana Ragsdale MD [facility] on 05/05/2022. The patient tolerated the procedure [...] THROUGHPUT TECH Routine 05/05/2022 2:05 PM EST CA TOTAL KNEE ARTHROPLASTY 05/05/2022 1:08 PM EST [...] EST) WBC 18.86(H) 4.00 - 10.90 K/uL [facility] RBC 4.68 4.50 - 6.40 M/uL [facility] HGB 14.5 13.5 - 18.0 g/dL [facility] HCT 42.0 40.0 - 54.0 % [facility] PLT 227 150 - 450 K/uL [facility] MCV 89.7 80.0 - 100.0 fL [facility] MCH 31.0 27.0 - 32.0 pg [facility] MCHC 34.5 32.0 - 36.0 g/dL [facility] RDW 11.6 11.5 - 14.5 % [facility] MPV 10.8 8.4 - 12.0 fl [facility] NRBC 0.00 0.00 /100 WBCs [facility] ABSOLUTE NRBC 0.00 0.00 K/uL [facility] Blood 05/06/2022 6:40 AM EST 05/06/2022 7:20 AM EST Kenny Chiu MD LAB BLOOD O ALEX Performing Organization Address [facility] [place] [address] * (ABNORMAL) Basic metabolic panel (05/06/2022 6:40 AM EST) SODIUM 136 136 - 145 mmol/L [facility] CHLORIDE 100 98 - 107 mmol/L [facility] POTASSIUM 4.2 3.4 - 5.0 mmol/L [facility] Comment:HEMOLYSIS_INDEX_OF_9 3,INTERPRET_WITH_CAUTION CO2 26 22 - 31 mmol/L [facility] BUN 11 6 - 23 mg/dL [facility] CREATININE 1.13 0.50 - 1.20 mg/dL [facility] GLUCOSE 169(H) 70 - 115 mg/dL [facility] CALCIUM 9.4 8.6 - 10.7 mg/dL [facility] EGFR 89 >60 mL/min/1.7 3m2 [facility] Comment:Estimated glomerular filtration rate calculated using the CKD-EPI refit equation. ANION GAP 10 3 - 15 mmol/L [facility] Blood 05/06/2022 6:40 AM EST 05/06/2022 7:20 AM EST Kenny Chiu MD LAB BLOOD O ALEX Performing Organization Address City/[facility]/[place] [address] * XR KNEE 1-2 VIEWS (LEFT) (05/05/2022 [...] PCR SARS-CoV-2 not detected SARS-CoV-2 not detected [facility] Source AN SWAB [facility] 05/05/2022 2:05 PM EST 05/05/2022 2:34 PM EST Adriana Ragsdale MD BODY FLUIDS AND STOOLS ORDERABLES Performing Organization Address [facility] Co de Phone Number [address] [address] * COVID-19 Antigen (Flowflex), Nasal Swab (05/05/2022 12:46 PM EST) SARS-CoV-2 (COVID-19) antigen NEGATIVE - Internal QCs acceptable NEGATIVE - Internal QCs acceptable [facility] Adriana Ragsdale MD POINT OF CARE T EST ORDERABLES Performing Organization Address [facility] Co de Phone Number [address] [address] documented in this encounter Visit Diagnoses Diagnosis [...] 06 (Given - Provider: Emily Zambrano RN) ceFAZolin [...] on Wed05/05/22 at 2100, Recovery & Post-op 2356 (Given - Provider: Emily Zambrano RN) [...] (Given - Provid er: Emily Zambrano RN) mxhwygtlqwp-zbzjzpljcae-fwsz idine-ketorolac 2.46-0.005- 0.0008-0.3mg/mL PERIARTICULAR syringe (COMPLETED) 100 [...] at 1857 2357 (Given - Provider: Emily Zambrano, MARIA DEL ROSARIO) polyethylene glycol packet 17 g, Oral, Daily [...] with ketorolac. 1809 (Given - Provider: Irma Valadez RN) Linked [...] PO. documented in this encounter Care Teams Vamp Throater Relationship Specialty Start Date End Date Shant [place] DO [address] [place] [address] PCP - General 07/16/20 documented as of this encounter Additional Source Comments The information contained in this document represents components of the legal health record. It is not the complete legal health record.[facility]
--- OUTSIDE RECORDS SUMMARY | 2024-02-03 12:57 | XMS_ITS | Encounter Summary ---
Author Organization [facility] Address [phone] [facility] [place] [address] Care Team Providers Care Instructor Substitute Cosmetology Name Role Phone Shant [place] DO Primary Care Provider + Encounter Details Date Type Department Care Team ([facility] st Contact Info) Description 10/17/2020 Ancillary Procedure [facility] Radiology [address] [place] [address] Delvis Kuhn MD [address] [place] [address] [email or web address] Social History Tobacco Use Types Packs/Day Years [...] (No Interpretation) (10/17/2020 12:00 AM EDT) Narrative [facility] - 12/26/2020 8:41 AM EDT This study is for PACS storage only and not for interpretation. Delvis Kuhn MD IMG OUTSIDE IMAG ING W/OUT INTERPRETATION PERC[facility]IO_[facility] documented in this encounter Visit Diagnoses Not on filedocumented in this encounter Care Teams Instructor Substitute Cosmetology Relationship Specialty Start Date End Date Shant [place] DO [address] [place] [address] PCP - General 07/16/20 documented as of this encounter Additional Source Comments The information contained in this document represents components of the legal health record. It is not the complete legal health record.[facility]
--- OUTSIDE RECORDS SUMMARY | 2024-02-03 12:57 | XMS_ITS | Encounter Summary ---
Author Organization [facility] Address [phone] [facility] [place] [address] Care Team Providers Care Emergency Room Registered Nurse Name Role Phone Shant [place] DO Primary Care Provider + Reason for Referral * MRI/CAT Scan - Closed Specialty Diagnoses / Procedures Referred By Contac t Referred To Contact Radiology Diagnoses Chronic pain of left knee Procedures CT Knee (Left) CHG CT SCAN,LOWER EXTREMITY,W/O CONTRAST Adriana Rags[place] MD [address] [place] [address] [address] Referral ID Status Reason Start Date Expiration Date Visits Re quested Visits Authorized [id number] Closed 03/25/2022 05/25/2022 2 2 Encounter Details Date Type Department Care Team ([facility] Contact Info) Description 03/05/2022 Orders Only [facility] Department of Orthopaedics [address] [place] [address] Adriana Rags[place] MD [address] [place] [address] [email or web address] Chronic pain of left knee (Primary Dx) [...] knee documented in this encounter Care Teams Emergency Room Registered Nurse Relationship Specialty Start Date End Date Shant [place] DO [address] [place] [address] PCP - General 07/16/20 documented as of this encounter Additional Source Comments The information contained in this document represents components of the legal health record. It is not the complete legal health record.[facility]
--- OUTSIDE RECORDS SUMMARY | 2024-02-03 12:57 | XMS_ITS | Encounter Summary ---
Author Organization [facility] Address [phone] [facility] [place] [address] Care Team Providers Care Sleeve Bottom Feller Name Role Phone Shant [place] DO Primary Care Provider + Encounter Details Date Type Department Care Team ([facility] Contact Info) Description 12/26/2020 Ancillary Orders [facility] Radiology [address] [place] [address] Delvis Kuhn MD [address] [place] [phone] [email or web address] Social History Tobacco Use Types Packs/Day Years [...] MD IMG OUTSIDE IMAG ING W/OUT INTERPRETATION [facility] documented in this encounter Visit Diagnoses Not on filedocumented in this encounter Care Teams Sleeve Bottom Feller Relationship Specialty Start Date End Date Shant [place] DO [address] [place] [address] PCP - General 07/16/20 documented as of this encounter Additional Source Comments The information contained in this document represents components of the legal health record. It is not the complete legal health record.[facility]
--- OUTSIDE RECORDS SUMMARY | 2024-02-03 12:57 | XMS_ITS | Encounter Summary ---
Author Organization [facility] Address [phone] [facility] [place] [address] Care Team Providers Care Theatrical Trouper Name Role Phone Shant [place] DO Primary Care Provider + Encounter Details Date Type Department Care Team (Late st Contact Info) Description 07/19/2020 Ancillary Orders [facility] Radiology [address] [place] [address] Unknown, Unknown, Social History Tobacco Use Types [...] on filedocumented in this encounter Care Teams Theatrical Trouper Relationship Specialty Start Date End Date Shant [place] DO [address] [place] [address] PCP - General 07/16/20 documented as of this encounter Additional Source Comments The information contained in this document represents components of the legal health record. It is not the complete legal health record.[facility]
--- OUTSIDE RECORDS SUMMARY | 2024-02-03 12:57 | XMS_ITS | Encounter Summary ---
Author Organization [facility] Address [phone] [facility] [address] Care Team Providers Care Civil Designer Name Role Phone Shant [place] DO Primary Care Provider + Encounter Details Date Type Department Care Team (Latest Contact Info) Description 04/10/2022 12:35 PM EST - 04/10/2022 11:59 PM EST Hospital Encounter [facility] Pathology Outpatient Lab [address] [place] [address] Adriana Rags[place] MD [address] [place] [address] [email or web address] Discharge Disposition: Home or Self Care [...] on filedocumented in this encounter Care Teams Civil Designer Relationship Specialty Start Date End Date Shant [place] DO [facility] [place] [address] PCP - General 07/16/20 documented as of this encounter Additional Source Comments The information contained in this document represents components of the legal health record. It is not the complete legal health record.[facility]
--- OUTSIDE RECORDS SUMMARY | 2024-02-03 12:57 | XMS_ITS | Encounter Summary ---
Author Organization [facility] Address [phone] [facility] [place] [address] Care Team Providers Care Director Of Hemophilia Name Role Phone Shant [place] DO Primary Care Provider + Reason for Visit * Reason Comments New Evaluation Knee Pain bilateral * Consultation (Routine) - Closed Specialty Diagnoses / Procedures Referred By Contac t Referred To Contact Orthopedic Surgery / Orthopedics Diagnoses Bilateral knee pain Bilateral knees. pt bringing XR and MRI on CD Procedures NEW ORTHO II Shant [place] DO [address] [place] [address] Delvis Kuhn MD [address] [place] [address] Email: [email or web address] Referral ID Status Reason Start Date Expiration Date Visits Re quested Visits Authorized [id number] Closed 07/24/2020 07/23/2021 6 6 Encounter Details Date Type Department Care Team (Late Contact Info) Description 07/24/2020 1:00 PM EDT Office Visit [facility] - Orthopedics [facility] [address] [place] [address] Delvis Kuhn MD [address] [place] [address] [email or web address] Articular cartilage disorder of knee, unspecified laterality [...] included. Delvis Kuhn M.D. [facility] Chief, Sports Medicine [address] [place] [address] Director, [facility] [place] [address] F: [phone] Fidelina Joe PA-C David [place] ?DATE OF : 1990 DATE OF SERVICE: 07/24/20 PCP: ?Shant [place] [address] [address] Referring Physician: Shant [place] DO [address] [place] [address] CC: Bilateral knee pain ?VISIT DIAG: Articular cartilage disorder of knee, unspecified laterality [M23.90] ?INTERVAL HISTORY: David Morrow is a 30 y.o. male new patient [...] personally spent 30 minutes in combination of deqp-eq-dnem and non paff-tw-avam in conjunction with Fidelina Joe PA-C including [...] of 07/24/2020. This note was dictated using [employer] software. While it was briefly proofread prior [...] Mild to moderate bilateral knee osteoarthritis. Delvis Kunh MD IMG XR SKELETAL SURVEY * XR [...] laterality documented in this encounter Care Teams Director Of Hemophilia Relationship Specialty Start Date End Date JimmyShant briseno Abner [address] [place] [address] PCP - General 07/16/20 documented as of this encounter Additional Source Comments The information contained in this document represents components of the legal health record. It is not the complete legal health record.[facility]
--- OUTSIDE RECORDS SUMMARY | 2024-02-03 12:58 | XMS_ITS | Encounter Summary ---
Author Organization [facility] Address [phone] [place] [address] Care Team Providers Care Sheet Metal Supervisor Name Role Phone Unavailable Primary Care Provider Unavailabl e Encounter Details Date Type Department Care Team (Late st Contact Info) Description 08/02/2019 Ancillary Procedure [facility] Rad[facility] [address] [place] [address] Unknown, Unknown, MD Social History Tobacco Use [...]
--- OUTSIDE RECORDS SUMMARY | 2024-02-03 12:58 | XMS_ITS | Encounter Summary ---
Author Organization [facility] Address [phone] [place] [address] Care Team Providers Care Projection Technician Name Role Phone Unavailable Primary Care Provider Unavailabl e Encounter Details Date Type Department Care Team (Late st Contact Info) Description 09/11/2019 Ancillary Procedure [facility] Rad[facility] [address] [place] [address] Unknown, Unknown, MD Social History Tobacco Use [...] (No Interpretation) (09/11/2019 12:00 AM EDT) Narrative [facility] - 07/19/2020 [...] It is not the complete legal health record.[facility]
[2024-02-07 11:56] LABS: Chlamydia Result Negative (Negative); GC Result Negative (Negative)
== END 2024-02-03 12:51 | disposition home or self-care (01) ==
LOC: LBO 12:52
PROVIDERS: PCP Family Medicine; Visit Provider Family Medicine
DX: Z20.2 Contact with and (suspected) exposure to infections with a predominantly sexual mode of transmission; E78.5 Hyperlipidemia, unspecified; M67.432 Ganglion, left wrist
CPT/HCPCS: 36415; 80048; 80061; 87491; 87591

== ENCOUNTER 2024-03-20 12:59 | Outpatient (CLI) | payer BC, SELFPAY ==
--- NOTE | 2024-03-20 09:30 | DI.RAD_ITS ---
Exam(s) XR CHEST 2V PA LATERAL EXAM: XR CHEST 2V PA LATERAL CLINICAL HISTORY: Cough and fever,uri,j06.9 TECHNIQUE: 2D digital imaging was performed. Two views. COMPARISON: No exams were available for comparison FINDINGS: HEART: Normal size. Aorta: Not dilated. PULMONARY VASCULATURE: Normal. MEDIASTINUM: Unremarkable. LUNGS: Clear. PLEURAL SPACE: No pleural effusion or pneumothorax. BONE:Unremarkable for age. SOFT TISSUES: Unremarkable. IMPRESSION: No acute abnormality. DATA REPOSITORY: RADIATION DOSE DELIVERED:
== END 2024-03-20 13:19 ==
LOC: DI 12:59
PROVIDERS: PCP Family Medicine; Visit Provider Family Medicine
DX: J06.9 Acute upper respiratory infection, unspecified (principal)
CPT/HCPCS: 71046